=== PATIENT | female | born 1935 | race Caucasian/White ===

== ENCOUNTER 2016-08-30 12:54 | Inpatient (IN) ==
[2016-08-30] MEDS ORDERED: *HR* HYDROmorphone (PF) 1 MG/ML SYRINGE IVP ONE (12:58)
[2016-08-30] MEDS ORDERED: Ondansetron 4 MG/2 ML VIAL IVP ONE (12:58)
--- NOTE | 2016-08-30 13:07 | Emergency Department Note ---
Disposition Clinical Impression: Hypoxia Pneumonia Qualifiers: Pneumonia type: due to unspecified organism Laterality: bilateral Lung location : unspecified part of lung Qualified Code(s): J18.9 - Pneumonia, unspecified organism Nausea & vomiting Qualifiers: Vomiting type: unspecified Vomiting Intractability: unspecified Qualified Code( s): R11.2 - Nausea with vomiting, unspecified Disposition: Admitted As Inpatient Condition: Fair Referrals: Jo-Ann Mensah GENERAL ENGINEERING TEACHER [Primary Care Provider] - Forms: ED Satisfaction Letter Time of Disposition: 17:36 Nausea/Vomiting/Diarrhea HPI - General Chief complaint: ED Nausea/Vomiting/Diarrhea Stated complaint: increased pain/n/v Time Seen by Provider: 08/30/16 12:58 Source: patient, family Limitations: no limitations Nursing Notes Reviewed: Yes Vital Signs Reviewed: Yes - History of Present Illness HPI Narrative: 80-year-old with lung cancer who comes in with nausea vomiting not able to anything down and some shortness of breath. Patient currently is receiving radiation therapy and chemotherapy. Pt Subjective Complaint: nausea, vomiting Onset (ago): day(s) Description of emesis: food contents If pain, Location of pain: other (Back pain associated with her cancer.) Severity: moderate Quality: aching Consistency: constant Improves with: nothing Associated symptoms: Reports: cough - Related Data Home Medications Medication Instructions Recorded Confirmed Esomeprazole Magnesium [Nexium] 40 mg PO DAILY 07/16/16 08/07/16 Gabapentin [Neurontin] 600 mg PO Q6H 07/16/16 08/07/16 Ropinirole HCl 0.5 mg PO HS 07/16/16 08/07/16 Tramadol HCl 100 mg PO Q6H PRN 07/16/16 08/07/16 Albuterol Sulfate [Albuterol 2 puff IH Q4H PRN 07/17/16 08/07/16 Inhaler] Budesonide/Formoterol 160/4.5 2 puff IH BID PRN 07/17/16 08/07/16 [Symbicort 160/4.5] Lisinopril [Lisinopril] 40 mg PO DAILY 08/07/16 08/07/16 Previous Rx's Medication Instructions Recorded Magic Mouthwash [Magic Mouthwash 10 ml PO QID PRN #240 ml 08/19/16 BLM] Ondansetron HCl [Zofran] 4 mg PO TID PRN #90 tablet 08/19/16 Prochlorperazine Maleate 10 mg PO Q8HR PRN #90 tablet 08/19/16 [Compazine] Dexamethasone [Decadron] 4 mg PO BID #60 tab 08/25/16 HYDROcodone/Acet 5/325 mg [[place] 1 - 2 tab PO Q6H PRN #80 tab 08/25/16 5-325 mg] Allergies Allergy/AdvReac Type Severity Reaction Status Date / Time acetaminophen [From [place]] Allergy itching,hiv Verified 08/07/16 12:50 es codeine Allergy itching,hiv Verified 08/07/16 12:50 es fluticasone Allergy Difficulty Verified 08/07/16 12:50 [From Advair Diskus] Breathing hydrocodone [From [place]] Allergy itching,hiv Verified 08/07/16 12:50 es salmeterol Allergy Difficulty Verified 08/07/16 12:50 [From Advair Diskus] Breathing Constitutional: Denies: fever, chills, weakness, weight change Eyes: Denies: eye pain, eye discharge, vision change ENT ED: Denies: ear pain, throat pain, dental pain, hearing loss, epistaxis, congestion, dysphagia Cardiovascular: Denies: chest pain, palpitations, dyspnea on exertion, edema, syncope Respiratory: Denies: cough, dyspnea, wheezes, hemoptysis, stridor Gastrointestinal: Reports: nausea, vomiting, diarrhea. Denies: abdominal pain, constipation, hematemesis, melena, hematochezia Genitourinary: Denies: dysuria, frequency, hematuria, discharge Musculoskeletal: Denies: back pain, neck pain, arthralgia, myalgia Integumentary: Denies: rash, abrasion, lesions Neurological: Denies: headache, weakness, numbness, paresthesias, confusion, abnormal gait, vertigo Psychiatric: Denies: anxiety, depression, suicidal thoughts, homicidal thoughts , auditory hallucinations, visual hallucinations Endocrine: Denies: fatigue Hematological/Lymphatic: Denies: easy bleeding, easy bruising Allergic/Immunologic: Denies: facial swelling, urticaria Past Medical History - Past Medical History Medical history: Reports: cancer, hypertension, other Surgical history: Reports: non-contributory Psychiatric history: Reports: no psych history CARDIOPULMONARY PHYSICAL THERAPIST history: Reports: no CARDIOPULMONARY PHYSICAL THERAPIST history - Social History Smoking Status: Current every day smoker Smokeless Tobacco Status: No Alcohol use: Reports: none Drug use: Reports: none Physical Exam - General Limitations: no limitations General appearance: alert, in no apparent distress - Head Head exam: atraumatic, normocephalic, normal inspection - Eye Eye exam: Present: normal appearance, PERRL, EOMI - ENT ENT exam: normal exam, normal oropharynx, mucous membranes moist - Neck Neck exam: Present: normal inspection, full ROM, trachea midline - Chest Chest inspection: Present: normal inspection, symmetric chest wall rise - Respiratory Respiratory exam: Present: normal lung sounds bilaterally - Cardiovascular Cardiovascular exam: Present: regular rate, normal rhythm, normal heart sounds - Abdominal Exam Abdominal exam: Present: soft, Non-Tender. Absent: tenderness, distention, guarding, rebound, rigidity - Extremities Exam Extremities exam: Present: normal inspection, full ROM. Absent: tenderness, pedal edema - Expanded Lower Extremity Exam Neurovascular/Tendon exam: Absent: motor deficit, sensory deficit, tendon deficit - Back Exam Back exam: Present: normal inspection, full ROM. Absent: tenderness - Neurological Exam Neurological exam: Present: alert, oriented X3 - Psychiatric Psychiatric exam: Present: normal affect, normal mood - Skin Skin exam: Present: warm, dry, intact, normal color Course - Consultations Consultation #1: Discussed with Dr. Mancilla, it. Time: 17:40 Vital Signs Temperature 98.4 F 08/30/16 12:57 Pulse Rate 112 08/30/16 12:57 Respiratory Rate 14 08/30/16 12:57 Blood Pressure 168/93 08/30/16 12:57 O2 Sat by Pulse Oximetry 90 L 08/30/16 12:57 Temperature 98.4 F 08/30/16 12:57 Pulse Rate 115 08/30/16 14:58 Respiratory Rate 16 08/30/16 14:58 Blood Pressure 149/90 08/30/16 14:58 O2 Sat by Pulse Oximetry 92 L 08/30/16 14:58 Oxygen Delivery Oxygen Delivery Room Air Nausea/Vomiting/Diarrhea - Lab Data Lab results reviewed: Yes I reviewed the patient's lab results. Result diagrams: 08/30/16 13:42 08/30/16 14:38 Lab Results 08/30/16 08/30/16 08/30/16 Range/Units 13:42 13:42 14:15 WBC 7.6 (4.3-11.1) K/mcL RBC 3.94 (3.82-4.97) M/mcL Hgb 10.7 L (11.5-15.4) g/dL Hct 32.8 L (35.3-44.9) % MCV 83.2 (83.0-100.0) fL MCH 27.2 L (28.0-33.3) pg MCHC 32.6 (31.6-35.5) g/dL RDW 16.5 H (11.5-14.5) % Plt Count 240 (140-400) K/mcL MPV 9.6 (9.4-12.4) fL Immature Gran % Test Not Performed Seg Neutrophils % 42.0 % Band Neutrophils % 38.0 H (0-4) % Lymphocytes % 10.0 % Monocytes % 10.0 % Eosinophils % Test Not Performed Basophils % Test Not Performed Neutrophils # 6.1 (1.6-8.9) K/mcL Lymphocytes # 0.8 (0.6-4.6) K/mcL Monocytes # 0.8 (0.0-1.3) K/mcL Eosinophils # Test Not Performed Basophils # Test Not Performed Platelet Estimate Normal (Normal) Sodium (136-145) mEq/L Potassium (3.5-4.5) mEq/L Chloride (98-109) mEq/L Carbon Dioxide (19-29) mEq/L BUN (7-20) mg/dL Creatinine (0.57-1.11) mg/dL Est GFR ( Amer) (> 60) Est GFR (Non-Af Amer) (> 60) BUN/Creatinine Ratio (6-26) Glucose (70-99) mg/dL Calculated Osmolality (280-300) Calcium (8.6-10.8) mg/dL Urine Color Yellow (Yellow) Urine Clarity Clear (Clear) Urine pH 6.0 (5.0-8.0) pH Units Ur Specific [place] 1.016 (1.010-1.025) Urine Protein 30 H (Neg-Trace) mg/dL Urine Glucose (UA) Normal (Normal) mg/dL Urine Ketones Negative (Negative) mg/dL Urine Blood Negative (Negative) Urine Nitrite Negative (Negative) Urine Bilirubin Negative (Negative) Urine Urobilinogen Normal (Normal) mg/dL Ur Leukocyte Esterase Negative (Negative) Urine Microscopic RBC 5-15 H (0-3) per hpf Urine Microscopic WBC 0-3 (0-3) per hpf Ur Squamous Epith Cells Many H (None-Few) per lpf Ur Renal Epithelial Cell Few (None-Few) per hpf Urine Bacteria None Seen (None-Few) per hpf Hyaline Casts None Seen (None-Few) per lpf Ur Culture Indicated? NO (NO) Specimen Rejected Hemolyzed 08/30/16 Range/Units 14:38 WBC (4.3-11.1) K/mcL RBC (3.82-4.97) M/mcL Hgb (11.5-15.4) g/dL Hct (35.3-44.9) % MCV (83.0-100.0) fL MCH (28.0-33.3) pg MCHC (31.6-35.5) g/dL RDW (11.5-14.5) % Plt Count (140-400) K/mcL MPV (9.4-12.4) fL Immature Gran % Seg Neutrophils % % Band Neutrophils % (0-4) % Lymphocytes % % Monocytes % % Eosinophils % Basophils % Neutrophils # (1.6-8.9) K/mcL Lymphocytes # (0.6-4.6) K/mcL Monocytes # (0.0-1.3) K/mcL Eosinophils # Basophils # Platelet Estimate (Normal) Sodium 129 L (136-145) mEq/L Potassium 3.9 (3.5-4.5) mEq/L Chloride 93 L (98-109) mEq/L Carbon Dioxide 26 (19-29) mEq/L BUN 12 (7-20) mg/dL Creatinine 0.56 L (0.57-1.11) mg/dL Est GFR ( Amer) > 60 (> 60) Est GFR (Non-Af Amer) > 60 (> 60) BUN/Creatinine Ratio 21 (6-26) Glucose 146 H (70-99) mg/dL Calculated Osmolality 270 L (280-300) Calcium 9.4 (8.6-10.8) mg/dL Urine Color (Yellow) Urine Clarity (Clear) Urine pH (5.0-8.0) pH Units Ur Specific [place] (1.010-1.025) Urine Protein (Neg-Trace) mg/dL Urine Glucose (UA) (Normal) mg/dL Urine Ketones (Negative) mg/dL Urine Blood (Negative) Urine Nitrite (Negative) Urine Bilirubin (Negative) Urine Urobilinogen (Normal) mg/dL Ur Leukocyte Esterase (Negative) Urine Microscopic RBC (0-3) per hpf Urine Microscopic WBC (0-3) per hpf Ur Squamous Epith Cells (None-Few) per lpf Ur Renal Epithelial Cell (None-Few) per hpf Urine Bacteria (None-Few) per hpf Hyaline Casts (None-Few) per lpf Ur Culture Indicated? (NO) Specimen Rejected - Radiology Data Radiology results reviewed: Yes I reviewed the patient's radiology results. Abdomen/Pelvis CT 08/30/16 13:02 IMPRESSION: Bibasilar airspace disease compatible with pneumonia, new from prior CT. Mild prominence of the biliary and pancreatic ductal system, similar to the CT from several months earlier, without obstructing pancreatic or duodenal mass seen. Degenerative changes, lumbar spine and right hip. Renal cysts. D/ / 08/30/2016 17:23:18 Pak[facility] Leyva MD / [facility] Interpreting Provider: Pako Leyva MD Chest CT 08/30/16 13:02 IMPRESSION: No substantial change in spiculated right upper lobe mass. Slight decrease in pretracheal lymph node. Progression of tree-in-bud nodules in the lower lungs as well as new partial consolidation in the lower lobes concerning for pneumonia although progression of disease also a consideration. Postsurgical changes from kyphoplasty as above. New scleroses and heterogeneous appearance of T8 with loss of approximately 20% vertebral body height. No discrete lesion visualized however if there is concern for pathologic fracture MRI would be more sensitive. Compression deformity of T6 with loss of about 50% vertebral body height, new. D/ / Karen Johnson MD / Karen Johnson MD Interpreting Provider: Karen Johnson MD
[2016-08-30 14:04] LABS: Hematocrit 32.8 % (35.3-44.9); Hemoglobin 10.7 g/dL (11.5-15.4); Mean Corpuscular HGB Conc 32.6 g/dL (31.6-35.5); Mean Corpuscular Hemoglobin 27.2 pg (28.0-33.3); Mean Corpuscular Volume 83.2 fL (83.0-100.0); Mean Platelet Volume 9.6 fL (9.4-12.4); Platelet Count 240 K/mcL (140-400); Red Blood Count 3.94 M/mcL (3.82-4.97); Red Cell Distribution Width 16.5 % (11.5-14.5)
[2016-08-30 14:22] LABS: Lymphocytes # 0.8 K/mcL (0.6-4.6); Monocytes # 0.8 K/mcL (0.0-1.3); Neutrophils # 6.1 K/mcL (1.6-8.9); Platelet Estimate Normal (Normal)
[2016-08-30 14:23] LABS: Bilirubin,Urine Negative (Negative); Blood,Urine Negative (Negative); Clarity,Urine Clear (Clear); Color,Urine Yellow (Yellow); Glucose,Urine (UA) Normal (Normal); Ketones,Urine Negative (Negative); Leukocyte Esterase,Urine Negative (Negative); Nitrite,Urine Negative (Negative); Protein,Urine 30 mg/dL (Neg-Trace); Specific Gravity,Urine 1.016 (1.010-1.025); Urobilinogen,Urine Normal (Normal)
[2016-08-30 14:26] LABS: Bacteria,Urine None Seen per hpf (None-Few); Hyaline Casts,Urine None Seen per lpf (None-Few); Squamous Epithelial Cell,Urine Many per lpf (None-Few); WBC,Urine 0-3 per hpf (0-3)
[2016-08-30 14:39] LABS: Renal Epithelial Cells,Urine Few per hpf (None-Few)
[2016-08-30 15:41] LABS: BUN/Creatinine Ratio 21 (6-26); Blood Urea Nitrogen 12 mg/dL (7-20); Calcium 9.4 mg/dL (8.6-10.8); Carbon Dioxide 26 mEq/L (19-29); Chloride 93 mEq/L (98-109); Glucose 146 mg/dL (70-99); Osmolality,Calculated 270 (280-300); Potassium 3.9 mEq/L (3.5-4.5); Sodium 129 mEq/L (136-145); eGFR For African Americans > 60 (> 60); eGFR For Non-African Americans > 60 (> 60)
[2016-08-30] MEDS ORDERED: Piperacillin/Tazobactam 3.375 GM in D5% in Water (Mini-Bag+) 100 ML IVPB ONE (17:35)
[2016-08-30] MEDS ORDERED: Vancomycin 1,000 MG in D5% in Water 250 ML IVPB ONE (17:40)
[2016-08-30] MEDS ORDERED: Naloxone 0.4 MG/ML INJ IVP PRN (19:04)
[2016-08-30] MEDS ORDERED: Ondansetron 4 MG/2 ML VIAL IVP PRN (19:04)
[2016-08-30] MEDS ORDERED: 0.9 % Sodium Chloride 1,000 ML IVC SCH (19:15)
[2016-08-30] MEDS ORDERED: Magic Mouthwash 10 ML UD Cup PO PRN (19:50)
[2016-08-30] MEDS ORDERED: Budesonide/Formoterol 160/4.5 MDI IH PRN (19:50)
[2016-08-30] MEDS ORDERED: traMADol 50 MG TABLET PO PRN (19:50)
--- NOTE | 2016-08-30 20:03 | Internal Med History&Physical ---
Date of Encounter: 08/30/16 Time of Encounter: 19:30 Assessment and Plan (1) HCAP (healthcare-associated pneumonia) Current visit: Yes Status: Acute CT chest findings consistent with bilateral lower lobe pneumonia She received first dose of vancomycin and Zosyn in the ER, will continue Follow-up blood cultures Follow-up Vanco trough, pharmacy to dose vancomycin (2) Anemia Current visit: Yes Status: Acute H&H low but acceptable No active bleeding noted at this time Will obtain iron studies to obtain etiology for anemia Continue to monitor H&H closely, transfuse as needed Qualifiers: Anemia type: unspecified type Qualified Code(s): D64.9 - Anemia, unspecified (3) Nausea & vomiting Current visit: Yes Status: Resolved Resolved at this time Likely secondary to the recent chemotherapy and radiation therapy will continue Zofran as needed will add promethazine if nausea refractory to Zofran Continue IV fluids until able to fully tolerate by mouth intake Qualifiers: Vomiting type: unspecified Vomiting Intractability: unspecified Qualified Code(s): R11.2 - Nausea with vomiting, unspecified (4) COPD (chronic obstructive pulmonary disease) Current visit: No Status: Chronic Not an acute exacerbation Continue bronchodilators as needed Monitor O2 saturation O2 supplementation as needed Qualifiers: COPD type: chronic bronchitis Chronic bronchitis type: simple Qualified Code(s): J41.0 - Simple chronic bronchitis (5) HTN (hypertension) Current visit: No Status: Chronic BP within acceptable range Continue home medications Qualifiers: Hypertension type: essential hypertension Qualified Code(s): I10 - Essential (primary) hypertension (6) GERD (gastroesophageal reflux disease) Current visit: No Status: Chronic Continue home medications Qualifiers: Esophagitis presence: without esophagitis Qualified Code(s): K21.9 - Gastro -esophageal reflux disease without esophagitis (7) Lung cancer Current visit: No Status: Chronic Continue chemotherapy and radiation as outpatient Continue home regimen of pain management Added Dilaudid for severe pain refractory to home medication Qualifiers: Laterality: right Lung location: upper lobe of lung Qualified Code(s): C34.11 - Malignant neoplasm of upper lobe, right bronchus or lung (8) Hyperglycemia Current visit: Yes Status: Acute Patient noted to be on Decadron at home Hyperglycemia likely secondary to steroid therapy, however noted to have history of A1c of 6.2 in February 2016 will repeat A1c in a.m. Continue to monitor blood glucose (9) DVT prophylaxis Current visit: Yes Status: Acute Lovenox subcutaneous Internal Medicine - H&P: HPI Chief complaint: nausea, vomiting Admitted From: Home Plans for Post Hospital Care: Transfer Detention Facility History of present illness: Ms. 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 Patient reports of receiving chemotherapy and radiation last week and since then her pain and nausea/vomiting have worsened. She states that she does not have adequate pain control nor it was her nausea relieved with by mouth medications to which she came to the ER. Patient received IV medications which relieved her restenting symptoms, however she was noted to have bilateral lower lobe pneumonia which prompted her admission to the hospital. At this time she is resting in bed reports of chronic pain in her back and left shoulder, and states it was better controlled with the pain medication she received in the ER than the medication she takes at home. She denies any headache, chest pain, shortness of breath, abdominal pain, nausea, vomiting, diarrhea, fever, or chills at this time. Social hx: former smoker (quit 1.5 months ago-history of 1ppd x 40+years) Past Med Surg Social Fam HX - Past Medical History Medical history: cancer (lung cancer), hypertension, malignancy, other Psychiatric history: no psych history - Past Surgical History Surgical History: non-contributory - Social History Smoking Status: Current every day smoker Smokeless Tobacco Status: No Alcohol use: none Drug use: none Internal Medicine - H&P: Meds Esomeprazole Magnesium [Nexium] 40 mg PO DAILY 07/16/16 [History] Gabapentin [Neurontin] 600 mg PO Q6H 07/16/16 [History] Ropinirole HCl 0.5 mg PO HS 07/16/16 [History] Tramadol HCl 100 mg PO Q6H PRN 07/16/16 [History] Albuterol Sulfate [Albuterol Inhaler] 2 puff IH Q4H PRN 07/17/16 [History] Budesonide/Formoterol 160/4.5 [Symbicort 160/4.5] 2 puff IH BID PRN 07/17/16 [ History] Lisinopril [Lisinopril] 40 mg PO DAILY 08/07/16 [History] Magic Mouthwash [Magic Mouthwash BLM] 10 ml PO QID PRN #240 ml 08/19/16 [Rx] Ondansetron HCl [Zofran] 4 mg PO TID PRN #90 tablet 08/19/16 [Rx] Prochlorperazine Maleate [Compazine] 10 mg PO Q8HR PRN #90 tablet 08/19/16 [Rx] Dexamethasone [Decadron] 4 mg PO BID #60 tab 08/25/16 [Rx] HYDROcodone/Acet 5/325 mg [[place] 5-325 mg] 1 - 2 tab PO Q6H PRN #80 tab [Rx] Allergies acetaminophen [From [place]] Allergy (Verified 08/07/16 12:50) itching,hives codeine Allergy (Verified 08/07/16 12:50) itching,hives fluticasone [From Advair Diskus] Allergy (Verified 08/07/16 12:50) Difficulty Breathing hydrocodone [From [place]] Allergy (Verified 08/07/16 12:50) itching,hives salmeterol [From Advair Diskus] Allergy (Verified 08/07/16 12:50) Difficulty Breathing All Systems PM: A 10-system review of systems was performed and is negative for pertinent findings except as documented above in the HPI. - Constitutional Constitutional: as per HPI - Constitutional Vitals: Temp Pulse Resp BP Pulse Ox 99.2 F 116 18 147/79 94 L 08/30/16 19:20 08/30/16 19:20 08/30/16 19:20 08/30/16 19:20 08/30/16 19:20 General appearance: Present: A&O X 3 (frail apperaing elderly female), no acute distress, underweight, answers questions appropriately - Head Head exam: Present: atraumatic, normocephalic - Respiratory Respiratory exam: Absent: respiratory distress, wheezes (coarse breath sounds bilaterally) - Cardiovascular Cardiovascular exam: Present: RRR, +S1, +S2. Absent: diastolic murmur, gallop, rubs, systolic murmur - GI/Abdominal GI/Abdominal exam: Present: normal bowel sounds, soft, no peritoneal signs. Absent: distended, tenderness - Extremities Exam Extremities exam: Present: warm, radial pulses palpable and symetrical. Absent : calf tenderness, cyanotic, pedal edema - Neurological Exam Neurological exam: Present: alert, oriented X3 - Psychiatric Psychiatric exam: Present: normal affect, normal mood Internal Med - H&P Results - Labs CBC & Chem 7: 08/30/16 13:42 08/30/16 14:38
[2016-08-30] MEDS: rOPINIRole 0.25 MG TABLET PO SCH (21:54)
[2016-08-30] MEDS: Gabapentin 300 MG CAPSULE PO SCH (21:54)
[2016-08-31] MEDS: Gabapentin 300 MG CAPSULE PO SCH ×4 (02:33→21:18)
[2016-08-31] MEDS: *HR* HYDROmorphone (PF) 1 MG/ML SYRINGE IVP PRN ×2 (02:33→13:02)
[2016-08-31 04:02] LABS: Hematocrit 30.7 % (35.3-44.9); Hemoglobin 10.1 g/dL (11.5-15.4); Mean Corpuscular HGB Conc 32.9 g/dL (31.6-35.5); Mean Corpuscular Hemoglobin 27.4 pg (28.0-33.3); Mean Corpuscular Volume 83.4 fL (83.0-100.0); Mean Platelet Volume 9.6 fL (9.4-12.4); Platelet Count 216 K/mcL (140-400); Red Blood Count 3.68 M/mcL (3.82-4.97); Red Cell Distribution Width 16.3 % (11.5-14.5)
[2016-08-31] MEDS: Piperacillin/Tazobactam 3.375 GM in D5% in Water (Mini-Bag+) 100 ML IVPB SCH ×3 (04:10→18:12)
[2016-08-31 04:11] LABS: Hemoglobin A1C 6.3 %
[2016-08-31 04:18] LABS: % Iron Saturation 5 % (15-50); Iron 12 mcg/dL (50-170); Transferrin 169 mg/dL (180-382)
[2016-08-31 04:21] LABS: BUN/Creatinine Ratio 22 (6-26); Blood Urea Nitrogen 12 mg/dL (7-20); Calcium 9.1 mg/dL (8.6-10.8); Carbon Dioxide 27 mEq/L (19-29); Chloride 93 mEq/L (98-109); Glucose 151 mg/dL (70-99); Magnesium 1.9 mg/dL (1.6-2.6); Osmolality,Calculated 267 (280-300); Phosphorous 2.7 mg/dL (2.3-4.7); Potassium 3.9 mEq/L (3.5-4.5); Sodium 127 mEq/L (136-145); eGFR For African Americans > 60 (> 60); eGFR For Non-African Americans > 60 (> 60)
[2016-08-31 04:23] LABS: Lymphocytes # 0.1 K/mcL (0.6-4.6); Monocytes # 0.1 K/mcL (0.0-1.3); Neutrophils # 6.8 K/mcL (1.6-8.9)
[2016-08-31 04:31] LABS: Large Platelets Present (Not Present); Platelet Estimate Normal (Normal); Polychromasia 1+ (Not Present)
[2016-08-31 04:39] LABS: Ferritin 308 ng/ml (5-204)
[2016-08-31 04:51] LABS: Folate 11.5 ng/mL (7.0-31.4)
[2016-08-31] MEDS: *HR* Enoxaparin 40 MG/0.4 ML SYRINGE SQ SCH (06:39)
[2016-08-31] MEDS: Lisinopril 20 MG TABLET PO SCH (09:37)
--- NOTE | 2016-08-31 10:46 | Internal Med Progress Note ---
Date of Encounter: 08/31/16 Time of Encounter: 10:44 - Assessment and plan (1) HCAP (healthcare-associated pneumonia) Current Visit: Yes Status: Acute Assessment and plan: improving slightly; continues to have productive cough; IV hydration; continue broad spectrum IV antibiotics, f/up blood cultures; send sputum for gram stain and culture; PRN antitussives and Mucomyst; supplemental O2 PRN; high risk due to immunosuppressed condition; (2) Nausea & vomiting Current Visit: Yes Status: Resolved Assessment and plan: likley related to recent chemotherapy or viral gastritis; improved now; Qualifiers: Vomiting type: unspecified Vomiting Intractability: unspecified Qualified Code(s): R11.2 - Nausea with vomiting, unspecified (3) COPD (chronic obstructive pulmonary disease) Current Visit: Yes Status: Chronic Qualifiers: COPD type: chronic bronchitis Chronic bronchitis type: simple Qualified Code(s): J41.0 - Simple chronic bronchitis (4) DJD (degenerative joint disease) Current Visit: Yes Status: Chronic Qualifiers: Osteoarthritis location: spine Spinal region: lumbar Spinal osteoarthritis complication: with radiculopathy Qualified Code(s): 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, lumbar region (5) GERD (gastroesophageal reflux disease) Current Visit: Yes Status: Chronic Qualifiers: Esophagitis presence: without esophagitis Qualified Code(s): K21.9 - Gastro -esophageal reflux disease without esophagitis (6) HTN (hypertension) Current Visit: Yes Status: Chronic Qualifiers: Hypertension type: essential hypertension Qualified Code(s): I10 - Essential (primary) hypertension (7) Lung cancer Current Visit: Yes Status: Chronic Assessment and plan: RUL squamous cell carcinoma- on chemotherapy and radiotherapy as outpatient; continue analgesics for chronic chest pain; 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; continue Accucheck blood glucose monitoring; HbA1C noted to be 6.3% Qualifiers: Laterality: right Lung location: upper lobe of lung Qualified Code(s): C34.11 - Malignant neoplasm of upper lobe, right bronchus or lung - Subjective Interval history: Reports feeling slightly better; continues to have hacking cough with minimal yellowish sputum production, chest congestion; improved nausea, vomiting; left- sided chest pain improving; no abdominal pain, diarrhea; - Constitutional Vitals: Temp Pulse Resp BP Pulse Ox 98.5 F 85 18 95/58 93 L 08/31/16 07:35 08/31/16 07:35 08/31/16 07:35 08/31/16 07:35 08/31/16 07:35 General appearance: Present: cachectic, A&O X 3 (frail apperaing elderly female) , answers questions appropriately - Head Head exam: Present: atraumatic, normocephalic - Neck Neck exam general surgery: Present: supple, trachea midline. Absent: lymphadenopathy - Respiratory Respiratory exam: Present: CTAB, rales (bibasal crackles+). Absent: accessory muscle use, rhonchi, wheezes Additional comments: severe kyphosis - Cardiovascular Cardiovascular exam: Present: RRR, +S1, +S2. Absent: diastolic murmur, gallop, rubs, systolic murmur - GI/Abdominal GI/Abdominal exam: Present: normal bowel sounds, soft, no peritoneal signs. Absent: distended, tenderness - Extremities Exam Extremities exam: Present: full ROM, warm, radial pulses palpable and symetrical. Absent: calf tenderness, cyanotic, pedal edema - Neurological Exam Neurological exam: Present: CN II-XII intact, oriented X3, no focal deficits. Absent: pronater drift, facial droop, speech deficit - Skin Skin exam: Present: dry, intact Internal Medicine: Result - Labs CBC & Chem 7: 08/31/16 03:45 08/31/16 03:45 Labs: Short CBC 08/31/16 Range/Units 03:45 WBC 7.1 (4.3-11.1) K/mcL Hgb 10.1 L (11.5-15.4) g/dL Hct 30.7 L (35.3-44.9) % Plt Count 216 (140-400) K/mcL Neutrophils # 6.8 (1.6-8.9) K/mcL BMP 08/31/16 03:45 Sodium 127 L Potassium 3.9 Chloride 93 L Carbon Dioxide 27 BUN 12 Creatinine 0.54 L Glucose 151 H Calcium 9.1 Consult Discharge Plan - Plan Referrals: Jo-Ann Mensah, THERAPEUTIC RECREATION DIRECTOR [Primary Care Provider] - 09/08/16 1:00 pm (Please follow up as schedule..)
[2016-08-31] MEDS: Acetylcysteine 10% 2 ML INHSOL IH SCH ×3 (11:41→19:44)
[2016-08-31] MEDS ORDERED: Vancomycin 1,000 MG in D5% in Water 250 ML IVPB SCH (18:00)
[2016-08-31] MEDS: rOPINIRole 0.25 MG TABLET PO SCH (21:18)
[2016-09-01] MEDS: Gabapentin 300 MG CAPSULE PO SCH ×4 (02:17→21:02)
[2016-09-01] MEDS: Piperacillin/Tazobactam 3.375 GM in D5% in Water (Mini-Bag+) 100 ML IVPB SCH ×3 (02:21→16:45)
[2016-09-01] MEDS: Ipratropium/Albuterol Neb 3 ML IH SCH ×4 (04:02→23:15)
[2016-09-01] MEDS: Acetylcysteine 10% 2 ML INHSOL IH SCH ×3 (04:03→23:15)
[2016-09-01] MEDS: Acetylcysteine 10% 4 ML INHSOL IH SCH ×3 (04:26→15:20)
[2016-09-01] MEDS: *HR* Enoxaparin 40 MG/0.4 ML SYRINGE SQ SCH (06:44)
[2016-09-01 07:04] LABS: BUN/Creatinine Ratio 31 (6-26); Blood Urea Nitrogen 18 mg/dL (7-20); Calcium 9.5 mg/dL (8.6-10.8); Carbon Dioxide 27 mEq/L (19-29); Chloride 95 mEq/L (98-109); Glucose 165 mg/dL (70-99); Osmolality,Calculated 278 (280-300); Potassium 3.9 mEq/L (3.5-4.5); Sodium 131 mEq/L (136-145); eGFR For African Americans > 60 (> 60); eGFR For Non-African Americans > 60 (> 60)
[2016-09-01] MEDS: Lisinopril 20 MG TABLET PO SCH (09:31)
--- NOTE | 2016-09-01 09:35 | Internal Med Progress Note ---
<Sandra Levy - Last Filed: 09/01/16 14:25> Date of Encounter: 09/01/16 Time of Encounter: 08:45 - Assessment and plan (1) HCAP (healthcare-associated pneumonia) Current Visit: Yes Status: Acute Assessment and plan: Undergoing chemo, evidenced by new tree-in-bud opacities, productive sputum. Cont Vanc/Zosyn, await culture return for deescalation. Due to adverse effect on 1st chemo round, per attending, would request oncology eval to delineate remaining chemo regimen. (2) Hypoxia Current Visit: No Status: Acute Assessment and plan: Cont supp oxygen support. Likely multifactorial, 2* multifocal pna in setting of known lung cancer. 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 Affirms PMH and general events prompting hospitalization. 80 yoF RUL NSCLC R. hilar adenopathy, chemo/radn followed by Dr. Stratton, Reed, GERD, HTN , receiving chemo. Admitted 08/30/16 for NV, CTAP bibasilar airspace ds c/w pna, Chest CT RUL spiculated mass, progression tree-in-bud nodules lower lungs. Empiric vanc/zosyn, bc x 2 neg, sputum many GPC PMH 60py smoker, MRI T7/T10 compression fracture, s/p kyphoplasty. She reports no home use of oxygen. She has had radiation therapy x 3 per her recollection, on cycle 1 chemo. Affirms left-sided pleurisy, productive cough, dyspnea. - Constitutional Vitals: Temp Pulse Resp BP Pulse Ox 98.6 F 91 16 117/69 98 09/01/16 06:59 09/01/16 06:59 09/01/16 06:59 09/01/16 06:59 09/01/16 06:59 General appearance: Present: cachectic, cooperative, A&O X 3 (frail apperaing elderly female), answers questions appropriately - Head Head exam: Present: atraumatic, normocephalic - Eye Eye exam: Present: EOMI, sclera anicteric - ENT ENT exam: Present: mucous membranes moist - Neck Neck exam general surgery: Present: supple, trachea midline - Respiratory Respiratory exam: Present: accessory muscle use, prolonged expiratory phase, rales, rhonchi (all cisse, pronounced right side. ) - Cardiovascular Cardiovascular exam: Present: +S1, +S2. Absent: JVD - GI/Abdominal GI/Abdominal exam: Present: soft, no peritoneal signs. Absent: tenderness - Extremities Exam Extremities exam: Present: warm, radial pulses palpable and symetrical. Absent : pedal edema Internal Medicine: Result - Labs CBC & Chem 7: 08/31/16 03:45 09/01/16 06:23 Labs: BMP 09/01/16 06:23 Sodium 131 L Potassium 3.9 Chloride 95 L Carbon Dioxide 27 BUN 18 Creatinine 0.58 Glucose 165 H Calcium 9.5 Consult Discharge Plan - Plan Referrals: Jo-Ann Mensah, BILLING SERVICES MANAGER [Primary Care Provider] - 09/08/16 1:00 pm (Please follow up as schedule..) <Caden Espinoza - Last Filed: 09/01/16 19:18> Date of Encounter: 09/01/16 - Assessment and plan (1) HCAP (healthcare-associated pneumonia) Current Visit: Yes Status: Acute - Time Spent With Patient I examined this patient and my medical decision-making was reviewed with the Resident Physician, Dr. Levy. I agree with the documented findings, disposition and treatment plan as described except to the extent set forth below. We will continue treatment with antibiotics, steroids, oxygen by nasal cannula and bronchodilators. I am concerned of aspiration secondary to intractable vomiting caused by chemotherapy. We will follow up blood cultures and sensitivities and adjust therapy accordingly. - Constitutional Vitals: Temp Pulse Resp BP Pulse Ox 98.6 F 114 16 107/69 94 L 09/01/16 15:43 09/01/16 15:43 09/01/16 15:43 09/01/16 15:43 09/01/16 15:43 Internal Medicine: Result - Labs CBC & Chem 7: 08/31/16 03:45 09/01/16 06:23 Labs: [facility] 09/01/16 06:23 Sodium 131 L Potassium 3.9 Chloride 95 L Carbon Dioxide 27 BUN 18 Creatinine 0.58 Glucose 165 H Calcium 9.5
[2016-09-01] MEDS: *HR* HYDROmorphone (PF) 1 MG/ML SYRINGE IVP PRN (14:09)
[2016-09-01] MEDS: *HR* HYDROcodone/Acet 5/325 mg TABLET PO PRN (16:44)
--- NOTE | 2016-09-01 16:46 | Oncology Inp Consult Note ---
<Yesenia Bernal E - Last Filed: 09/01/16 17:44> Date of Encounter: 09/01/16 Time of Encounter: 15:40 Assessment and Plan (1) HCAP (healthcare-associated pneumonia) Status: Acute Assessment and plan: CUrrenlty on vancomycin and Zosyn. (2) Lung cancer Status: Chronic Assessment and plan: Currently receiving concurrent chemotherapy and radiation. With chemotherapy including carboplatin and Taxol weekly. Initial dose was given on July the last dose on 08/25/2016. Qualifiers: Laterality: right Lung location: upper lobe of lung Qualified Code(s): C34.11 - Malignant neoplasm of upper lobe, right bronchus or lung - Data of Consult Patient: known to practice within the last 3 years Consult date: 09/01/16 Requesting Physician: Caden Espinoza MD Primary Care Provider: Jo-Ann Mensah CNP - Consult Narrative Reason for consult: Lung cancer History of present illness: Ms. Guzman is a 80 year old female who is well-known to our clinic. 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 She is currently receiving definitive treatment with concurrent chemotherapy and radiation. Chemotherapy includes carboplatin and Taxol which is given weekly with concurrent radiation. The initial dose was on August 18, the second weekly dose was given on August 25. She was recently admitted to [facility] with nausea and vomiting, health care associated pneumonia. Oncology history is as follows. She has history of chronic back pain with worsening symptoms in February 2016. At that time she had plain x-rays that showed a compression fracture in the thoracic vertebrae. She was taking NSAIDs and underwent further CT imaging of the back due to ongoing pain issues followed by an MRI of thoracic and lumbar spine. Imaging showed acute compression fractures at T7 and T10, chronic compression fractures at T5 inferior aspect and a T9, thoracic imaging also showed a right lung mass. This was further investigated by CT scan of the chest which was completed in May 2016 which showed a right upper lobe lung mass measuring 6 x 5.4 x 5.8 cm with borderline right hilar adenopathy. She had a CT-guided biopsy of the right lung mass that indicated moderately differentiated squamous cell carcinoma, p63 and CK 5 and 6 positive. She was hospitalized in June 2016 with shortness of breath. A CT angiogram ruled out pulmonary embolism she was treated for bronchitis, COPD exacerbation. In May 2016 an MRI of the brain showed no metastatic lesions however there was a pontine lesion. She also reported having a 15 pound weight loss in the previous 6 months. She did start chemotherapy and radiation on August 18 with carboplatin and Taxol being given weekly with her last weekly dose being given on August 25. On 08/30/2016, she presented to the emergency room with nausea and vomiting and increasing shortness of breath. She was admitted to [facility] with nausea vomiting, health care associated pneumonia. She is currently on broad-spectrum antibiotics. CAT scan on 08/30/2016 indicated no substantial change in the spiculated right upper lobe mass, slight decrease in the paratracheal lymph node. There was progression of treatment but nodules in the lower lungs as well as new partial consolidation in the lower lobes concerning for pneumonia although progressive disease could also be considered. There was also evidence of postsurgical changes from kyphoplasty. New sclerosis and heterogeneous appearance of T8 with loss of approximately 20% of vertebral body height, no discrete lesion visualized. There was also compression deformity of T5 with loss of about 50% of vertebral body height which is new. Past Med Surg Social Fam HX - Past Medical History Medical history: cancer, hypertension, malignancy, other (Osteoarthritis, osteoporosis, hypercholesterolemia, restless leg syndrome, hypertension, GERD, peptic ulcer disease, chronic bronchitis, hayfever, degenerative disc disease, hqz-[id number]-[id number] diabetes mellitus, near syncopal episodes, carpal tunnel, cervical jugular be, hayfever.) Psychiatric history: no psych history - Past Surgical History Surgical History: non-contributory - Social History Smoking Status: Former smoker Smokeless Tobacco Status: No Alcohol use: none Drug use: none Current living situation: With Family (Visit home with her daughter and grandkids) Recent Out of Country Travel Within the Last 8 Weeks: No Exposure or Possible Exposure to Illness During Travel: No - Additional Family History Additional family history: Diabetes. Medications and Allergies Gabapentin [Neurontin] 600 mg PO Q6H 07/16/16 [History] Ropinirole HCl 0.5 mg PO HS 07/16/16 [History] Tramadol HCl 100 mg PO Q6H PRN 07/16/16 [History] Albuterol Sulfate [Albuterol Inhaler] 2 puff IH Q4H PRN 07/17/16 [History] Budesonide/Formoterol 160/4.5 [Symbicort 160/4.5] 2 puff IH BID PRN 07/17/16 [ History] Lisinopril [Lisinopril] 40 mg PO DAILY 08/07/16 [History] Ondansetron HCl [Zofran] 4 mg PO TID PRN #90 tablet 08/19/16 [Rx] Prochlorperazine Maleate [Compazine] 10 mg PO Q8HR PRN #90 tablet 08/19/16 [Rx] Amlodipine [Norvasc] 5 mg PO DAILY 08/31/16 [History] Dexamethasone [Dexamethasone] 4 mg PO BID 08/31/16 [History] Hydrocodone/Acetaminophen [[place] 5-325 Tablet] 1 each PO Q6H PRN 08/31/16 [ History] Oxycodone HCl 5 mg PO Q6H PRN 08/31/16 [History] Sennosides/Docusate Sodium [Senna-S Tablet] 1 each PO HS PRN 08/31/16 [History] Allergies acetaminophen [From [place]] Allergy (Verified 08/31/16 12:00) itching,hives codeine Allergy (Verified 08/31/16 12:00) itching,hives fluticasone [From Advair Diskus] Allergy (Verified 08/31/16 12:00) Difficulty Breathing hydrocodone [From [place]] Allergy (Verified 08/31/16 12:00) itching,hives salmeterol [From Advair Diskus] Allergy (Verified 08/31/16 12:00) Difficulty Breathing All systems: reviewed and no additional remarkable complaints except as stated Constitutional: Present: fatigue, weakness Respiratory: Present: cough (Dry, nonproductive intermittent), dyspnea on exertion, chest congestion Gastrointestinal: Present: early satiety (She denies nausea and vomiting. She states she vomited once since she was admitted.) Musculoskeletal: Present: back pain (In the left shoulder area) Oncology - Exam - Constitutional Vitals: Temp Pulse Resp BP Pulse Ox 98.6 F 114 16 107/69 94 L 09/01/16 15:43 09/01/16 15:43 09/01/16 15:43 09/01/16 15:43 09/01/16 15:43 General appearance: mild distress, thin - Head Head exam: Present: normal inspection - ENT ENT exam: Present: mucous membranes moist - Neck Neck exam: Present: normal inspection - Respiratory Respiratory exam: Present: rhonchi (In all lung cisse) - Cardiovascular Cardiovascular exam: Present: RRR - GI/Abdominal GI/Abdominal exam: Present: soft (Nontender) - Extremities Exam Extremities exam: Present: normal inspection (No edema present) Oncology - Results - Labs Labs: [facility] 09/01/16 06:23 Sodium 131 L Potassium 3.9 Chloride 95 L Carbon Dioxide 27 BUN 18 Creatinine 0.58 Glucose 165 H Calcium 9.5 Consult Discharge Plan - Plan Referrals: Jo-Ann Mensah CNP [Primary Care Provider] - 09/08/16 1:00 pm (Please follow up as schedule..) Attestation: My signature below is to certify that this patient is under my care and that I, or nurse practitioner, or a physician's general assistant working with me, has a face-to -face encounter with this patient. <Joaquim Cerda. - Last Filed: 09/02/16 14:53> Date of Encounter: 09/01/16 - Data of Consult Requesting Physician: Caden Espinoza MD Primary Care Provider: Jo-Ann Mensah CNP - Consult Narrative History of present illness: I saw and personally examined Ms. Guzman at her bedside today and reviewed the chart for details of ongoing care by hospital team. I verified/agree with the history and physical exam findings documented by Melisa Bernal CNP above. Patient is known to oncology and is currently undergoing definitive concurrent chemoradiation for local regionally advanced lung cancer. Chemotherapy per Dr. Neil. Radiation therapy per Dr. Mcbride. Treatment was started 08/18/16. Last dose chemotherapy 08/25/16. Currently hospitalized for health care associated pneumonia after presenting with progressive shortness of breath. Lung imaging is positive for bilateral infiltrates consistent with pneumonia and she is an appropriate antibiotic coverage. She is feeling considerably better this morning with significant improvement in her respiratory symptoms. Vital signs are stable and systemic exam documented above is verified. Health care associated pneumonia: Agree with ongoing management and since patient is making steady coming from improvement, will follow along with you. Lung cancer: Chemoradiation has been on hold since 08/28/15. Plan is to resume concurrent chemoradiation once she is clinically optimized from her acute respiratory symptoms. I reconfirmed with patient today that she wants to continue treatment for her lung cancer. Upon discharge, we'll arrange for outpatient follow-up with Dr. Neil/ Dr. Mcbride for clinical evaluation prior to resuming treatment. Will follow patient peripherally along with you during this hospitalization but please do not hesitate to call regarding interval oncologic questions that may arise while she is in-house. Thank you for involving us in her care during this hospitalization. Oncology - Exam - Constitutional Vitals: Temp Pulse Resp BP Pulse Ox 97.7 F 100 16 114/66 96 09/02/16 10:40 09/02/16 10:40 09/02/16 10:40 09/02/16 10:40 09/02/16 10:40 Oncology - Results - Labs Labs: Short CBC 09/02/16 Range/Units 05:45 WBC 5.0 (4.3-11.1) K/mcL Hgb 10.4 L (11.5-15.4) g/dL Hct 32.0 L (35.3-44.9) % Plt Count 259 (140-400) K/mcL Neutrophils # 3.9 (1.6-8.9) K/mcL BMP 09/02/16 05:45 Sodium 135 L Potassium 3.3 L Chloride 99 Carbon Dioxide 24 BUN 18 Creatinine 0.57 Glucose 157 H Calcium 9.2 Attestation: My signature below is to certify that this patient is under my care and that I, or nurse practitioner, or a physician's general assistant working with me, has a face-to -face encounter with this patient.
[2016-09-01] MEDS: Vancomycin 750 MG in D5% in Water 250 ML IVPB SCH (18:41)
[2016-09-01] MEDS: rOPINIRole 0.25 MG TABLET PO SCH (21:02)
[2016-09-01] MEDS: Sennosides/Docusate Sodium TABLET PO SCH (21:03)
[2016-09-01] MEDS: Budesonide/Formoterol 160/4.5 MDI IH SCH (23:15)
[2016-09-02] MEDS: Piperacillin/Tazobactam 3.375 GM in D5% in Water (Mini-Bag+) 100 ML IVPB SCH ×3 (00:41→17:32)
[2016-09-02] MEDS: Gabapentin 300 MG CAPSULE PO SCH ×4 (01:35→20:50)
[2016-09-02] MEDS: *HR* HYDROcodone/Acet 5/325 mg TABLET PO PRN ×3 (01:35→17:29)
[2016-09-02] MEDS: Ipratropium/Albuterol Neb 3 ML IH SCH ×4 (04:04→23:09)
[2016-09-02] MEDS: Acetylcysteine 10% 2 ML INHSOL IH SCH ×4 (04:04→23:10)
[2016-09-02] MEDS: Vancomycin 750 MG in D5% in Water 250 ML IVPB SCH ×2 (06:28→17:29)
[2016-09-02] MEDS: *HR* Enoxaparin 40 MG/0.4 ML SYRINGE SQ SCH (06:31)
[2016-09-02 06:39] LABS: Hemoglobin 10.4 g/dL (11.5-15.4); Mean Corpuscular HGB Conc 32.5 g/dL (31.6-35.5); Mean Corpuscular Hemoglobin 26.7 pg (28.0-33.3); Mean Corpuscular Volume 82.3 fL (83.0-100.0); Mean Platelet Volume 9.6 fL (9.4-12.4); Platelet Count 259 K/mcL (140-400); Red Blood Count 3.89 M/mcL (3.82-4.97); Red Cell Distribution Width 16.6 % (11.5-14.5)
[2016-09-02 06:54] LABS: BUN/Creatinine Ratio 32 (6-26); Blood Urea Nitrogen 18 mg/dL (7-20); Calcium 9.2 mg/dL (8.6-10.8); Carbon Dioxide 24 mEq/L (19-29); Chloride 99 mEq/L (98-109); Glucose 157 mg/dL (70-99); Magnesium 1.9 mg/dL (1.6-2.6); Osmolality,Calculated 285 (280-300); Potassium 3.3 mEq/L (3.5-4.5); Sodium 135 mEq/L (136-145); eGFR For African Americans > 60 (> 60); eGFR For Non-African Americans > 60 (> 60)
[2016-09-02] MEDS ORDERED: Potassium Chloride Elixir 20 MEQ/15 ML UDC PO ONE (07:10)
[2016-09-02] MEDS: Lisinopril 20 MG TABLET PO SCH (08:36)
[2016-09-02] MEDS: Sennosides/Docusate Sodium TABLET PO SCH (08:36)
[2016-09-02 09:27] LABS: Lymphocytes # 0.4 K/mcL (0.6-4.6); Monocytes # 0.7 K/mcL (0.0-1.3); Neutrophils # 3.9 K/mcL (1.6-8.9)
[2016-09-02 09:28] LABS: Platelet Estimate Normal (Normal); Reactive Lymphocytes Present (Not Present)
--- NOTE | 2016-09-02 10:20 | Internal Med Progress Note ---
<Sandra Levy - Last Filed: 09/02/16 15:16> Date of Encounter: 09/02/16 Time of Encounter: 09:45 - Assessment and plan (1) HCAP (healthcare-associated pneumonia) Current Visit: Yes Status: Acute Assessment and plan: Undergoing chemo, evidenced by new tree-in-bud opacities, productive sputum. Cont Vanc/Zosyn, await culture return for deescalation. Sputum GPC, final results pending. Due to adverse effect on 1st chemo round, had requested oncology eval to delineate remaining chemo regimen. Appreciate input. Patient is agreeable to SNF/ECF, qualifying for supplemental O2. (2) Hypoxia Current Visit: No Status: Acute Assessment and plan: Cont supp oxygen support. Likely multifactorial, 2* multifocal pna in setting of known lung cancer. 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 Still on 5LNC, pleuritic discomfort and cough have improved. Interval she would have evaluation by oncology [employer]. Patient denies any substernal chest pain, abdominal pain, fever, chills. PT/OT would recommend SNF and she is agreeable. - Constitutional Vitals: Temp Pulse Resp BP Pulse Ox 97.5 F L 94 94 129/76 17 L 09/02/16 07:00 09/02/16 07:00 09/02/16 07:00 09/02/16 07:00 09/02/16 07:00 General appearance: Present: cachectic, cooperative, A&O X 3 (frail apperaing elderly female), answers questions appropriately - Head Head exam: Present: atraumatic, normocephalic - Eye Eye exam: Present: EOMI, sclera anicteric - ENT ENT exam: Present: mucous membranes moist - Neck Neck exam general surgery: Present: supple, trachea midline - Respiratory Respiratory exam: Present: accessory muscle use, decreased breath sounds (RUL), prolonged expiratory phase, rhonchi (all cisse, crackles near bases) - GI/Abdominal GI/Abdominal exam: Present: soft, no peritoneal signs. Absent: tenderness - Extremities Exam Extremities exam: Present: warm, radial pulses palpable and symetrical. Absent : pedal edema Internal Medicine: Result - Labs CBC & Chem 7: 09/02/16 05:45 09/02/16 05:45 Labs: Short CBC 09/02/16 Range/Units 05:45 WBC 5.0 (4.3-11.1) K/mcL Hgb 10.4 L (11.5-15.4) g/dL Hct 32.0 L (35.3-44.9) % Plt Count 259 (140-400) K/mcL Neutrophils # 3.9 (1.6-8.9) K/mcL BMP 09/02/16 05:45 Sodium 135 L Potassium 3.3 L Chloride 99 Carbon Dioxide 24 BUN 18 Creatinine 0.57 Glucose 157 H Calcium 9.2 Consult Discharge Plan - Plan Referrals: Jo-Ann Mensah VENEER JOINTER OFFBEARER [Primary Care Provider] - 09/08/16 1:00 pm (Please follow up as schedule..) <Caden Espinoza - Last Filed: 09/02/16 18:13> Date of Encounter: 09/02/16 - Assessment and plan (1) HCAP (healthcare-associated pneumonia) Current Visit: Yes Status: Acute - Constitutional Vitals: Temp Pulse Resp BP Pulse Ox 97.5 F L 103 17 135/76 94 L 09/02/16 15:11 09/02/16 15:11 09/02/16 15:58 09/02/16 15:11 09/02/16 15:58 Internal Medicine: Result - Labs CBC & Chem 7: 09/02/16 05:45 09/02/16 05:45 Labs: Short CBC 09/02/16 Range/Units 05:45 WBC 5.0 (4.3-11.1) K/mcL Hgb 10.4 L (11.5-15.4) g/dL Hct 32.0 L (35.3-44.9) % Plt Count 259 (140-400) K/mcL Neutrophils # 3.9 (1.6-8.9) K/mcL BMP 09/02/16 05:45 Sodium 135 L Potassium 3.3 L Chloride 99 Carbon Dioxide 24 BUN 18 Creatinine 0.57 Glucose 157 H Calcium 9.2 - Attending Attestation I examined this patient and my medical decision-making was reviewed with the Resident Physician. I agree with the documented findings, disposition and treatment plan as described except to the extent set forth below. We will continue Zosyn and vancomycin for healthcare associated pneumonia. The patient does report some diarrhea. I will stop the Senokot and Colace. Monitor temperature curve and white blood cell count. If diarrhea continues consider C. difficile testing. She is at high risk for morbidity and mortality complications to continue active cancer, pneumonia and antibiotic therapy requiring close blood level monitoring for toxicity
[2016-09-02] MEDS: Budesonide/Formoterol 160/4.5 MDI IH SCH ×2 (10:25→23:10)
[2016-09-02] MEDS: *HR* HYDROmorphone (PF) 1 MG/ML SYRINGE IVP PRN ×2 (12:53→20:50)
[2016-09-02] MEDS: rOPINIRole 0.25 MG TABLET PO SCH (20:50)
[2016-09-03] MEDS: Piperacillin/Tazobactam 3.375 GM in D5% in Water (Mini-Bag+) 100 ML IVPB SCH ×3 (02:47→16:05)
[2016-09-03] MEDS: Gabapentin 300 MG CAPSULE PO SCH ×4 (02:48→20:15)
[2016-09-03] MEDS: Ipratropium/Albuterol Neb 3 ML IH SCH ×4 (04:01→22:45)
[2016-09-03] MEDS: Acetylcysteine 10% 2 ML INHSOL IH SCH ×4 (04:02→22:45)
[2016-09-03 06:11] LABS: Basophils % 0.2 %; Hematocrit 33.3 % (35.3-44.9); Hemoglobin 10.5 g/dL (11.5-15.4); Immature Granulocytes % 0.7 % (0-4); Lymphocytes # 0.6 K/mcL (0.6-4.6); Lymphocytes % 10.1 %; Mean Corpuscular HGB Conc 31.5 g/dL (31.6-35.5); Mean Corpuscular Hemoglobin 26.5 pg (28.0-33.3); Mean Corpuscular Volume 84.1 fL (83.0-100.0); Mean Platelet Volume 9.2 fL (9.4-12.4); Monocytes # 0.4 K/mcL (0.0-1.3); Monocytes % 7.1 %; Neutrophils # 4.6 K/mcL (1.6-8.9); Platelet Count 273 K/mcL (140-400); Red Blood Count 3.96 M/mcL (3.82-4.97); Red Cell Distribution Width 16.8 % (11.5-14.5); Segmented Neutrophils % 81.9 %
[2016-09-03 06:20] LABS: BUN/Creatinine Ratio 30 (6-26); Blood Urea Nitrogen 17 mg/dL (7-20); Carbon Dioxide 24 mEq/L (19-29); Chloride 101 mEq/L (98-109); Glucose 140 mg/dL (70-99); Sodium 136 mEq/L (136-145); eGFR For African Americans > 60 (> 60); eGFR For Non-African Americans > 60 (> 60)
[2016-09-03 06:21] LABS: Osmolality,Calculated 286 (280-300)
[2016-09-03] MEDS: Vancomycin 750 MG in D5% in Water 250 ML IVPB SCH ×2 (06:22→18:00)
[2016-09-03] MEDS: *HR* Enoxaparin 40 MG/0.4 ML SYRINGE SQ SCH (06:23)
[2016-09-03 06:43] LABS: Anisocytosis 1+ (Not Present); Platelet Estimate Normal (Normal)
[2016-09-03 06:44] LABS: Reactive Lymphocytes Present (Not Present)
[2016-09-03] MEDS: *HR* HYDROmorphone (PF) 1 MG/ML SYRINGE IVP PRN ×2 (08:43→13:39)
[2016-09-03] MEDS: Lisinopril 20 MG TABLET PO SCH (08:43)
[2016-09-03] MEDS: Budesonide/Formoterol 160/4.5 MDI IH SCH ×2 (10:28→22:45)
--- NOTE | 2016-09-03 12:04 | Discharge Summary ---
Date of Encounter: 09/03/16 Time of Encounter: 09:50 - Discharge Diagnosis (1) HCAP (healthcare-associated pneumonia) Status: Acute (2) Hypoxia Status: Acute (3) Lung cancer Status: Chronic Qualifiers: Laterality: right Lung location: upper lobe of lung Qualified Code(s): C34.11 - Malignant neoplasm of upper lobe, right bronchus or lung (4) DVT prophylaxis Status: Acute - Discharge Medications Home Medications: Gabapentin [Neurontin] 600 mg PO Q6H 07/16/16 [History] Ropinirole HCl 0.5 mg PO HS 07/16/16 [History] Tramadol HCl 100 mg PO Q6H PRN 07/16/16 [History] Albuterol Sulfate [Albuterol Inhaler] 2 puff IH Q4H PRN 07/17/16 [History] Budesonide/Formoterol 160/4.5 [Symbicort 160/4.5] 2 puff IH BID PRN 07/17/16 [ History] Lisinopril [Lisinopril] 40 mg PO DAILY 08/07/16 [History] Ondansetron HCl [Zofran] 4 mg PO TID PRN #90 tablet 08/19/16 [Rx] Prochlorperazine Maleate [Compazine] 10 mg PO Q8HR PRN #90 tablet 08/19/16 [Rx] Amlodipine [Norvasc] 5 mg PO DAILY 08/31/16 [History] Dexamethasone [Dexamethasone] 4 mg PO BID 08/31/16 [History] Hydrocodone/Acetaminophen [[place] 5-325 Tablet] 1 each PO Q6H PRN 08/31/16 [ History] Oxycodone HCl 5 mg PO Q6H PRN 08/31/16 [History] Sennosides/Docusate Sodium [Senna-S Tablet] 1 each PO HS PRN 08/31/16 [History] Allergies/Adverse Reactions: Allergies acetaminophen [From [place]] Allergy (Verified 08/31/16 12:00) itching,hives codeine Allergy (Verified 08/31/16 12:00) itching,hives fluticasone [From Advair Diskus] Allergy (Verified 08/31/16 12:00) Difficulty Breathing hydrocodone [From [place]] Allergy (Verified 08/31/16 12:00) itching,hives salmeterol [From Advair Diskus] Allergy (Verified 08/31/16 12:00) Difficulty Breathing Date of admission: 08/30/16 19:04 Primary care physician: Jo-Ann Mensah CNP Consults: 08/30/16 22:29 Consult to Nutrition [CONS] Routine Comment: Consulting Provider: NUTRITION Reason for Dietary Consult: MST Score Consult to Marine Diver [CONS] Routine Reason for SW Consult: patient states she feels she needs home O2, has lung cancer, and has financial concerns. 09/01/16 13:24 Consult to Oncology Hematology [CONS] Routine Consulting Provider: Ronni Neil Reason for Consult: discussed with KIKE Haas with multifocal pneumonia on first round of chemo, consult by request of Attending Hospitalist Dr. Espinoza Time Notified: 13:25 Call Completed: Yes 09/03/16 11:23 Consult to Invasive Line Access Team [CONS] Routine Reason for Consult: Pt being discharged on IV antibiotics Line Type: EPIV - Patient Status Condition: Fair - Discharge Instructions Follow Up With: Jo-Ann Mensah CNP [Primary Care Provider] - 09/08/16 1:00 pm (Please follow up as schedule..) Hospital course: Ms. Guzman is a 80 year old female Seen/examined, breathing better - Time Spent with Patient Total time spent providing and/or coordinating discharge services: - Constitutional Vitals: Temp Pulse Resp BP Pulse Ox 97.8 F 104 18 121/74 94 L 09/03/16 11:30 09/03/16 11:30 09/03/16 11:30 09/03/16 11:30 09/03/16 11:30 General appearance: Present: cachectic, cooperative, A&O X 3 (frail apperaing elderly female), answers questions appropriately
[2016-09-03] MEDS ORDERED: predniSONE 20 MG TABLET PO ONE (13:54)
--- NOTE | 2016-09-03 15:33 | Internal Med Progress Note ---
Date of Encounter: 09/03/16 Time of Encounter: 15:00 - Assessment and plan (1) HCAP (healthcare-associated pneumonia) Current Visit: Yes Status: Acute Assessment and plan: Undergoing chemo, evidenced by new tree-in-bud opacities, productive sputum. Cont Vanc/Zosyn, await culture return for deescalation. Will start Vanc/Cefepime on dc. Sputum GPC, not acceptable for culture. Wheezing on exam, added additional prednisone 40mg PO QD, for 5 days. Due to adverse effect on 1st chemo round, had requested oncology eval to delineate remaining chemo regimen. Appreciate input. Patient is would now like to go home and have PT/OT as outpatient, will qualify for supp O2 tomorrow. (2) Hypoxia Current Visit: No Status: Acute Assessment and plan: Cont supp oxygen support. Likely multifactorial, 2* multifocal pna in setting of known lung cancer. 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 She is on 5LNC, affirms pleuritic discomfort and cough, but improved from previous. Denies fever, chills. - Constitutional Vitals: Temp Pulse Resp BP Pulse Ox 97.8 F 104 18 121/74 94 L 09/03/16 11:30 09/03/16 11:30 09/03/16 11:30 09/03/16 11:30 09/03/16 11:30 General appearance: Present: cachectic, cooperative, A&O X 3 (frail apperaing elderly female), answers questions appropriately - Head Head exam: Present: atraumatic, normocephalic - Eye Eye exam: Present: EOMI, sclera anicteric - ENT ENT exam: Present: mucous membranes moist - Neck Neck exam general surgery: Present: supple, trachea midline - Respiratory Respiratory exam: Present: decreased breath sounds (RUL), prolonged expiratory phase, rhonchi, wheezes (end exp) - Cardiovascular Cardiovascular exam: Present: +S1, +S2. Absent: JVD - GI/Abdominal GI/Abdominal exam: Present: soft, no peritoneal signs. Absent: tenderness - Extremities Exam Extremities exam: Present: warm, radial pulses palpable and symetrical Internal Medicine: Result - Labs CBC & Chem 7: 09/03/16 05:34 09/03/16 05:34 Labs: Short CBC 09/03/16 Range/Units 05:34 WBC 5.6 (4.3-11.1) K/mcL Hgb 10.5 L (11.5-15.4) g/dL Hct 33.3 L (35.3-44.9) % Plt Count 273 (140-400) K/mcL Neutrophils # 4.6 (1.6-8.9) K/mcL BMP 09/03/16 05:34 Sodium 136 Potassium 4.0 Chloride 101 Carbon Dioxide 24 BUN 17 Creatinine 0.56 L Glucose 140 H Calcium 9.0 Consult Discharge Plan - Plan Referrals: Jo-Ann Mensah LINOTYPE MACHINIST APPRENTICE [Primary Care Provider] - 09/08/16 1:00 pm (Please follow up as schedule..)
[2016-09-03] MEDS: rOPINIRole 0.25 MG TABLET PO SCH (20:14)
[2016-09-04] MEDS: Piperacillin/Tazobactam 3.375 GM in D5% in Water (Mini-Bag+) 100 ML IVPB SCH ×2 (00:59→09:24)
[2016-09-04] MEDS: Acetylcysteine 10% 2 ML INHSOL IH SCH ×2 (03:58→10:53)
[2016-09-04] MEDS: Ipratropium/Albuterol Neb 3 ML IH SCH ×2 (03:58→10:52)
[2016-09-04] MEDS: Gabapentin 300 MG CAPSULE PO SCH ×3 (04:08→13:18)
[2016-09-04] MEDS: *HR* HYDROcodone/Acet 5/325 mg TABLET PO PRN (04:16)
[2016-09-04] MEDS: *HR* Enoxaparin 40 MG/0.4 ML SYRINGE SQ SCH (05:33)
[2016-09-04] MEDS: Vancomycin 750 MG in D5% in Water 250 ML IVPB SCH (05:34)
[2016-09-04 05:46] LABS: Basophils % 0.2 %; Hematocrit 30.3 % (35.3-44.9); Hemoglobin 9.9 g/dL (11.5-15.4); Immature Granulocytes % 1.1 % (0-4); Lymphocytes # 0.7 K/mcL (0.6-4.6); Lymphocytes % 13.6 %; Mean Corpuscular HGB Conc 32.7 g/dL (31.6-35.5); Mean Corpuscular Volume 82.8 fL (83.0-100.0); Mean Platelet Volume 9.3 fL (9.4-12.4); Monocytes # 0.5 K/mcL (0.0-1.3); Monocytes % 8.8 %; Neutrophils # 4.1 K/mcL (1.6-8.9); Platelet Count 257 K/mcL (140-400); Red Blood Count 3.66 M/mcL (3.82-4.97); Red Cell Distribution Width 16.6 % (11.5-14.5); Segmented Neutrophils % 76.3 %
[2016-09-04 06:04] LABS: BUN/Creatinine Ratio 31 (6-26); Blood Urea Nitrogen 17 mg/dL (7-20); Calcium 8.7 mg/dL (8.6-10.8); Carbon Dioxide 26 mEq/L (19-29); Chloride 102 mEq/L (98-109); Glucose 188 mg/dL (70-99); Osmolality,Calculated 291 (280-300); Potassium 3.5 mEq/L (3.5-4.5); Sodium 137 mEq/L (136-145); eGFR For African Americans > 60 (> 60); eGFR For Non-African Americans > 60 (> 60)
[2016-09-04 06:48] LABS: Platelet Estimate Normal (Normal); Reactive Lymphocytes Present (Not Present); Toxic Granulation Present (Not Present)
[2016-09-04] MEDS: Lisinopril 20 MG TABLET PO SCH (09:24)
[2016-09-04] MEDS ORDERED: predniSONE 20 MG TABLET PO ONE (10:03)
--- NOTE | 2016-09-04 10:06 | Discharge Summary ---
<Sandra Levy - Last Filed: 09/04/16 10:28> Date of Encounter: 09/04/16 Time of Encounter: 09:25 - Discharge Diagnosis (1) HCAP (healthcare-associated pneumonia) Priority: Primary Status: Acute (2) Hypoxia Priority: Secondary Status: Acute (3) Lung cancer Priority: Secondary Status: Chronic Qualifiers: Laterality: right Lung location: upper lobe of lung Qualified Code(s): C34.11 - Malignant neoplasm of upper lobe, right bronchus or lung (4) DVT prophylaxis Priority: Secondary Status: Acute - Discharge Medications Prescriptions: Cefepime HCl/D5w [Cefepime-Dextrose 1 gm/50 ml] 1 gm IV BID #14 mls Omeprazole [PriLOSEC] 20 mg PO DAILY@0630 #30 capsule.dr PredniSONE 40 mg PO DAILY #6 tablet Vancomycin HCl in Dextrose 5 % [Vancomycin 750 mg/250 ml-D5w] 750 mg IV BID #14 plast..bag Home Medications: Gabapentin [Neurontin] 600 mg PO Q6H 07/16/16 [History] Ropinirole HCl 0.5 mg PO HS 07/16/16 [History] Tramadol HCl 100 mg PO Q6H PRN 07/16/16 [History] Albuterol Sulfate [Albuterol Inhaler] 2 puff IH Q4H PRN 07/17/16 [History] Budesonide/Formoterol 160/4.5 [Symbicort 160/4.5] 2 puff IH BID PRN 07/17/16 [ History] Lisinopril 40 mg PO DAILY 08/07/16 [History] Ondansetron HCl [Zofran] 4 mg PO TID PRN #90 tablet 08/19/16 [Rx] Prochlorperazine Maleate [Compazine] 10 mg PO Q8HR PRN #90 tablet 08/19/16 [Rx] Amlodipine [Norvasc] 5 mg PO DAILY 08/31/16 [History] Dexamethasone 4 mg PO BID 08/31/16 [History] Hydrocodone/Acetaminophen [[place] 5-325 Tablet] 1 each PO Q6H PRN 08/31/16 [ History] Oxycodone HCl 5 mg PO Q6H PRN 08/31/16 [History] Sennosides/Docusate Sodium [Senna-S Tablet] 1 each PO HS PRN 08/31/16 [History] Cefepime HCl/D5w [Cefepime-Dextrose 1 gm/50 ml] 1 gm IV BID #14 mls 09/04/16 [Rx ] Dexamethasone [Decadron] 4 mg PO BID tablet 09/04/16 [Rx] Omeprazole [PriLOSEC] 20 mg PO DAILY@0630 #30 capsule.dr 09/04/16 [Rx] PredniSONE 40 mg PO DAILY #6 tablet 09/04/16 [Rx] Vancomycin HCl in Dextrose 5 % [Vancomycin 750 mg/250 ml-D5w] 750 mg IV BID #14 plast..bag 09/04/16 [Rx] Allergies/Adverse Reactions: Allergies acetaminophen [From [place]] Allergy (Verified 08/31/16 12:00) itching,hives codeine Allergy (Verified 08/31/16 12:00) itching,hives fluticasone [From Advair Diskus] Allergy (Verified 08/31/16 12:00) Difficulty Breathing hydrocodone [From [place]] Allergy (Verified 08/31/16 12:00) itching,hives salmeterol [From Advair Diskus] Allergy (Verified 08/31/16 12:00) Difficulty Breathing Date of admission: 08/30/16 19:04 Primary care physician: Jo-Ann Mensah CNP Consults: 08/30/16 22:29 Consult to Nutrition [CONS] Routine Comment: Consulting Provider: NUTRITION Reason for Dietary Consult: MST Score Consult to Food And Nutrition Services Assistant [CONS] Routine Reason for SW Consult: patient states she feels she needs home O2, has lung cancer, and has financial concerns. 09/01/16 13:24 Consult to Oncology Hematology [CONS] Routine Consulting Provider: Ronni Neil Reason for Consult: discussed with IKKE Haas with multifocal pneumonia on first round of chemo, consult by request of Attending Hospitalist Dr. Espinoza Time Notified: 13:25 Call Completed: Yes 09/03/16 11:23 Consult to Invasive Line Access Team [CONS] Routine Reason for Consult: Pt being discharged on IV antibiotics Line Type: EPIV Discharging clinician: Caden Espinoza Anticipated date of discharge: 09/04/16 - Patient Status Disposition: Home Health Service Condition: Fair Functional capacity at discharge: independent ambulation Overall status at discharge: patient is progressing back to baseline - Discharge Instructions Instructions: Anemia (GEN), Pneumonia (DC) Follow Up With: Ronni Neil MD [Partnered Physician] - 09/18/16 3:00 pm () Jo-Ann Mensah CNP [Primary Care Provider] - 09/08/16 1:00 pm (Please follow up as schedule..) - Diet and Activity Activity: increase activity as tolerated, wear oxygen at all times Diet: advance to your usual diet Hospital course: Ms. Guzman is a 80 year old female history RUL NSCLC R. hilar adenopathy, chemotherapy, radiation followed by Dr. Neil, Dr Mcbride, GERD, HTN, receiving chemo. Patient would present to [facility] 08/30/16 with chief concern: nausea/vomiting, accompanied by cough. Comorbidities would include: HTN, HLD, GERD, diabetes, former smoker. Imaging with CTA Chest disclosed: No substantial change in spiculated right upper lobe mass. Slight decrease in pretracheal lymph node. Progression of tree-in-bud nodules in the lower lungs as well as new partial consolidation in the lower lobes concerning for pneumonia although progression of disease also a consideration. Postsurgical changes from kyphoplasty as above. New scleroses and heterogeneous appearance of T8 with loss of approximately 20% vertebral body height. No discrete lesion visualized however if there is concern for pathologic fracture MRI would be more sensitive. Compression deformity of T6 with loss of about 50% vertebral body height, new. Clinical impression consistent with health-care associated pneumonia. Started on broad spectrum empiric antibiotics. BC x 2 negative, Sputum sample did not meet acceptability criteria. Patient improved clinically. She did have some wheezing suggestive of COPD exacerbation, so started on prednisone 40mg daily in addition to her regimen decadron 4mg PO BID. SW consult for HH and O2, patient did qualify for 4LNC supplemental oxygen. At time of discharge, patient was clinically improved, hemodynamically stable, progressing to baseline, and agreeable with plan of care. Patient was advised to seek immediate medical attention for any new or worsening symptoms including but not limited to fever, chills, chest pain, chest pressure, dyspnea, cough, abdominal pain, nausea, vomiting, diarrhea, bloody stool, urine and the patient voiced understanding. Patient will follow-up with primary care physician: Jo-Ann Mensah. Follow-up with Dr. Neil of [facility]. - Time Spent with Patient Total time spent providing and/or coordinating discharge services: Greater than 30 minutes - Constitutional Vitals: Temp Pulse Resp BP Pulse Ox 97.9 F 92 16 128/73 96 09/04/16 06:57 09/04/16 06:57 09/04/16 06:57 09/04/16 06:57 09/04/16 08:13 General appearance: Present: cachectic, cooperative, A&O X 3 (frail apperaing elderly female), answers questions appropriately - Head Head exam: Present: atraumatic, normocephalic - Eye Eye exam: Present: EOMI, sclera anicteric - ENT ENT exam: Present: mucous membranes moist - Neck Neck exam general surgery: Present: trachea midline - Respiratory Respiratory exam: Present: decreased breath sounds (RUL), prolonged expiratory phase, wheezes. Absent: rhonchi - Cardiovascular Cardiovascular exam: Present: +S1, +S2 - GI/Abdominal GI/Abdominal exam: Present: soft, no peritoneal signs. Absent: tenderness - Extremities Exam Extremities exam: Present: warm, radial pulses palpable and symetrical. Absent : pedal edema - Neurological Exam Neurological exam: Absent: facial droop, speech deficit <Caden Espinoza - Last Filed: 09/04/16 17:08> Date of Encounter: 09/04/16 - Discharge Diagnosis (1) HCAP (healthcare-associated pneumonia) Status: Acute Date of admission: 08/30/16 19:04 Primary care physician: Jo-Ann Mensah CNP Consults: 08/30/16 22:29 Consult to Nutrition [CONS] Routine Comment: Consulting Provider: NUTRITION Reason for Dietary Consult: MST Score Consult to Food And Nutrition Services Assistant [CONS] Routine Reason for SW Consult: patient states she feels she needs home O2, has lung cancer, and has financial concerns. 09/01/16 13:24 Consult to Oncology Hematology [CONS] Routine Consulting Provider: Ronni Neil Reason for Consult: discussed with KIKE Haas with multifocal pneumonia on first round of chemo, consult by request of Attending Hospitalist Dr. Espinoza Time Notified: 13:25 Call Completed: Yes 09/03/16 11:23 Consult to Invasive Line Access Team [CONS] Routine Reason for Consult: Pt being discharged on IV antibiotics Line Type: EPIV - Patient Status Functional capacity at discharge: independent ambulation Overall status at discharge: patient is progressing back to baseline - Diet and Activity Activity: increase activity as tolerated, wear oxygen at all times Diet: advance to your usual diet Hospital course: Ms. Guzman is a 80 year old female - Time Spent with Patient Total time spent providing and/or coordinating discharge services: - Constitutional Vitals: Temp Pulse Resp BP Pulse Ox 97.5 F L 105 17 103/60 95 09/04/16 10:52 09/04/16 10:52 09/04/16 10:52 09/04/16 10:52 09/04/16 10:52 - Attending Attestation I examined this patient and my medical decision-making was reviewed with the Resident Physician. I agree with the documented findings, disposition and treatment plan as described except to the extent set forth below. Continue IV antibiotics upon discharge for pneumonia. Follow-up with the oncologist regarding treatment of lung cancer. Continue with oxygen by nasal cannula at all times. Avoid cigarette smoke.
--- NOTE | 2016-09-04 10:37 | Physician Discharge Referral ---
<Sandra Levy - Last Filed: 09/04/16 10:36> Home Health/Hosp Referral Info Transfer to: Home Health Attending Provider: Dr. Espinoza Provider in Charge Post Discharge: PCP - Diagnosis (1) HCAP (healthcare-associated pneumonia) Priority: Primary Status: Acute (2) Hypoxia Priority: Secondary Status: Acute (3) Lung cancer Priority: Secondary Status: Chronic (4) DVT prophylaxis Priority: Secondary Status: Acute - Respiratory Orders Oxygen / L per min (4) Smoking Cessation: Smoking cessation has been advised. For more information, call the [place] [email or web address] Quit Line at 0-832-HVOU-NOW. - Diet/Nutrition Diet/Nutrition Orders: No Concentrated Sweets - Activity Activity Orders: Up ad armen, Ambulate - Services Needed Following services are medically necessary services: Home Health Aide, Physical Therapy, Occupational Therapy - Transfer Medications Prescriptions: Cefepime HCl/D5w [Cefepime-Dextrose 1 gm/50 ml] 1 gm IV BID #14 mls Omeprazole [PriLOSEC] 20 mg PO DAILY@0630 #30 capsule. PredniSONE 40 mg PO DAILY #6 tablet Vancomycin HCl in Dextrose 5 % [Vancomycin 750 mg/250 ml-D5w] 750 mg IV BID #14 plast..bag Home Medications: Gabapentin [Neurontin] 600 mg PO Q6H 07/16/16 [History] Ropinirole HCl 0.5 mg PO HS 07/16/16 [History] Tramadol HCl 100 mg PO Q6H PRN 07/16/16 [History] Albuterol Sulfate [Albuterol Inhaler] 2 puff IH Q4H PRN 07/17/16 [History] Budesonide/Formoterol 160/4.5 [Symbicort 160/4.5] 2 puff IH BID PRN 07/17/16 [ History] Lisinopril 40 mg PO DAILY 08/07/16 [History] Ondansetron HCl [Zofran] 4 mg PO TID PRN #90 tablet 08/19/16 [Rx] Prochlorperazine Maleate [Compazine] 10 mg PO Q8HR PRN #90 tablet 08/19/16 [Rx] Amlodipine [Norvasc] 5 mg PO DAILY 08/31/16 [History] Dexamethasone 4 mg PO BID 08/31/16 [History] Hydrocodone/Acetaminophen [[place] 5-325 Tablet] 1 each PO Q6H PRN 08/31/16 [ History] Oxycodone HCl 5 mg PO Q6H PRN 08/31/16 [History] Sennosides/Docusate Sodium [Senna-S Tablet] 1 each PO HS PRN 08/31/16 [History] Cefepime HCl/D5w [Cefepime-Dextrose 1 gm/50 ml] 1 gm IV BID #14 mls 09/04/16 [Rx ] Dexamethasone [Decadron] 4 mg PO BID tablet 09/04/16 [Rx] Omeprazole [PriLOSEC] 20 mg PO DAILY@0630 #30 capsule.dr 09/04/16 [Rx] PredniSONE 40 mg PO DAILY #6 tablet 09/04/16 [Rx] Vancomycin HCl in Dextrose 5 % [Vancomycin 750 mg/250 ml-D5w] 750 mg IV BID #14 plast..bag 09/04/16 [Rx] Allergies/Adverse Reactions: Allergies acetaminophen [From [place]] Allergy (Verified 08/31/16 12:00) itching,hives codeine Allergy (Verified 08/31/16 12:00) itching,hives fluticasone [From Advair Diskus] Allergy (Verified 08/31/16 12:00) Difficulty Breathing hydrocodone [From [place]] Allergy (Verified 08/31/16 12:00) itching,hives salmeterol [From Advair Diskus] Allergy (Verified 08/31/16 12:00) Difficulty Breathing Certification: Further, I certify that my clinical findings support that this patient is homebound (i.e. absences from home require considerable and taxing effort and are for medical reasons or adventist services or infrequently or short duration when for other reasons) because: Homebound Reason: Leaving home requires considerable and taxing effort due to condition, Severity of cardiac or pulmonary status limits activity tolerance Attestation: My signature below is to certify that this patient is under my care and that I, or nurse practitioner, or a physician's paperhanger assistant working with me, has a face-to -face encounter with this patient. <Caden Espinoza - Last Filed: 09/04/16 17:09> - Diagnosis (1) HCAP (healthcare-associated pneumonia) Status: Acute - Respiratory Orders Oxygen / L per min Smoking Cessation: Smoking cessation has been advised. For more information, call the [place] [employer] Quit Line at 5-796-OLWT-NOW. - Diet/Nutrition Diet/Nutrition Orders: No Concentrated Sweets - Activity Activity Orders: Up ad armen, Ambulate - Services Needed Following services are medically necessary services: Home Health Aide, Physical Therapy, Occupational Therapy Certification: Further, I certify that my clinical findings support that this patient is homebound (i.e. absences from home require considerable and taxing effort and are for medical reasons or adventist services or infrequently or short duration when for other reasons) because: Attestation: My signature below is to certify that this patient is under my care and that I, or nurse practitioner, or a physician's paperhanger assistant working with me, has a face-to -face encounter with this patient.
[2016-09-04] MEDS: Budesonide/Formoterol 160/4.5 MDI IH SCH (10:52)
[2016-09-04 10:53] VITALS: BP 103/60
[2016-09-04] MEDS ORDERED: Cefepime HCl 1,000 MG in D5% in Water (Mini-Bag+) 100 ML IVPB SCH (11:20)
[2016-09-04] MEDS ORDERED: Aminoglycoside Consult 1 EACH MC ONE (15:26)
== END 2016-09-04 15:27 | disposition home health service (06) | DRG 190 ==
LOC: 2ANU 12:54 → EMEROO 12:54 → SUATTDRO 19:04 → 2ANU 19:04
PROVIDERS: ADMIT Internal Medicine; ATTEND Internal Medicine

== ENCOUNTER 2016-10-06 06:33 | Inpatient (IN) ==
--- NOTE | 2016-10-06 07:00 | Emergency Department Note ---
Disposition Clinical Impression: Pneumonia Qualifiers: Pneumonia type: due to unspecified organism Laterality: left Lung location: unspecified part of lung Qualified Code(s): J18.9 - Pneumonia, unspecified organism Disposition: Still a Patient Referrals: Jo-Ann Mensah CNP [Primary Care Provider] - Forms: ED Satisfaction Letter Time of Disposition: 11:00 SOB HPI - General Chief Complaint: ED Shortness of Breath/Dyspnea Stated Complaint: Right side pain/ALEX Time Seen by Provider: 10/06/16 06:58 Source: patient, family Mode of arrival: wheelchair Limitations: no limitations Nursing Notes Reviewed: Yes Vital Signs Reviewed: Yes - History of Present Illness Patient presents to the ED with complaints of shortness of breath which has progressively increased in the last 5 hours. She had a history of lung CA and is currently undergoing chemo and radiation. Her last chemo was Wednesday, and last radiation Wednesday last week. She is further complaining of pain in the right lower quadrant. Abdomen tender to touch. She is alert, oriented and answers all questions appropriately. At home she has oxygen and uses oral suction as she has been unable to expectorate any oral secretions. Cough is moist, sputum quite thick and tenacious. Pt Subjective Complaint: shortness of breath Onset (ago): hour(s) (5) Context: recent illness Severity: moderate, severe Consistency/Duration: gradually worsening Improves with: nothing Worsens with: exertion, coughing Known history of: other (lung CA) Associated symptoms: Reports: other (lower abdominal pain on the right ) Treatment prior to arrival: oxygen Cough present: Yes Cough Description: Involuntary, Productive, Moist, Rattling Cough Frequency: Intermittent Sputum production: Yes Sputum Amount: Large - Related Data Home oxygen amount: 2 liters Home Medications Medication Instructions Recorded Confirmed Gabapentin [Neurontin] 600 mg PO Q6H 07/16/16 08/31/16 Ropinirole HCl 0.5 mg PO HS 07/16/16 08/31/16 Tramadol HCl 100 mg PO Q6H PRN 07/16/16 08/31/16 Lisinopril 40 mg PO DAILY 08/07/16 08/31/16 Amlodipine [Norvasc] 5 mg PO DAILY 08/31/16 08/31/16 Dexamethasone 4 mg PO BID 08/31/16 08/31/16 Oxycodone HCl 5 mg PO Q6H PRN 08/31/16 08/31/16 Sennosides/Docusate Sodium 1 each PO HS PRN 08/31/16 08/31/16 [Senna-S Tablet] Previous Rx's Medication Instructions Recorded Ondansetron HCl [Zofran] 4 mg PO TID PRN #90 tablet 08/19/16 Prochlorperazine Maleate 10 mg PO Q8HR PRN #90 tablet 08/19/16 [Compazine] Cefepime HCl/D5w 1 gm IV BID #14 mls 09/04/16 [Cefepime-Dextrose 1 gm/50 ml] Dexamethasone [Decadron] 4 mg PO BID tablet 09/04/16 Omeprazole [PriLOSEC] 20 mg PO DAILY@30 #30 capsule. 09/04/16 PredniSONE 40 mg PO DAILY #6 tablet 09/04/16 Vancomycin HCl in Dextrose 5 % 750 mg IV BID #14 plast..bag 09/04/16 [Vancomycin 750 mg/250 ml-D5w] Fluconazole [Diflucan] 100 mg PO DAILY #8 tablet 09/08/16 Magic Mouthwash [Magic Mouthwash 10 ml PO QID PRN #240 ml 09/08/16 BLM] HYDROcodone/Acet 10/325 mg [[place] 1 - 2 tab PO Q4HR PRN #100 tab 09/15/16 10-325 mg] Levofloxacin [Levaquin] 750 mg PO DAILY #10 tablet 09/22/16 PredniSONE 10 mg PO DAILY #21 tablet 09/22/16 Albuterol Sulfate [Albuterol 2 puff IH Q4H PRN #1 inhaler 09/28/16 Inhaler] Amoxicillin/Clavulanate [Augmentin] 500 mg PO BIDWM #20 tablet 09/28/16 Budesonide/Formoterol 160/4.5 2 puff IH BID #1 inhaler 09/28/16 [Symbicort 160/4.5] Budesonide/Formoterol 160/4.5 2 puff IH BIDR #1 hfa.aer.ad 09/28/16 [Symbicort 160/4.5] Sodium Polystyrene Sulfonate 15 gm PO BID #4 mls 09/30/16 [Kayexalate] Dexamethasone [Decadron] 4 mg PO BID #60 tab 10/01/16 Allergies Allergy/AdvReac Type Severity Reaction Status Date / Time acetaminophen [From [place]] Allergy itching,hiv Verified 08/31/16 12:00 es codeine Allergy itching,hiv Verified 08/31/16 12:00 es fluticasone Allergy Difficulty Verified 08/31/16 12:00 [From Advair Diskus] Breathing hydrocodone [From [place]] Allergy itching,hiv Verified 08/31/16 12:00 es salmeterol Allergy Difficulty Verified 08/31/16 12:00 [From Advair Diskus] Breathing All systems ED: reviewed and negative except as stated. Constitutional: Denies: fever, chills, weakness, weight change Eyes: Denies: eye pain, eye discharge, vision change ENT ED: Reports: congestion. Denies: ear pain, throat pain, dental pain, hearing loss, epistaxis, dysphagia Cardiovascular: Reports: orthopnea Respiratory: Reports: cough, dyspnea, wheezes, sputum production Gastrointestinal: Reports: abdominal pain (RLQ) Genitourinary: Denies: dysuria, frequency, hematuria, discharge Musculoskeletal: Denies: back pain, neck pain, arthralgia, myalgia Integumentary: Denies: rash, abrasion, lesions Past Medical History - Past Medical History Attestation: Yes The following information was validated with the patient. 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 Absent: tenderness, meningismus, lymphadenopathy - Chest Chest inspection: Present: symmetric chest wall rise, tenderness, other ( radiation bowling and chest skin discoloration evident) - Respiratory Respiratory exam: Present: wheezes, accessory muscle use, prolonged expiratory phase, other (thick tenacious sputum - necessary to suction as patient unable to clear throat) - Cardiovascular Cardiovascular exam: Present: regular rate, normal rhythm, normal heart sounds. Absent: systolic murmur, diastolic murmur, JVD - Abdominal Exam Abdominal exam: Present: tenderness (RLQ), diminished bowel sounds. Absent: distention, guarding, rebound Abdominal tenderness: Present: RLQ, moderate - Extremities Exam Extremities exam: Present: normal inspection, full ROM. Absent: tenderness, pedal edema - Expanded Lower Extremity Exam Gait: not tested/not observed - Back Exam Back exam: Present: normal inspection, full ROM. Absent: tenderness, muscle spasm - Neurological Exam Neurological exam: Present: alert, oriented X3, CN II-XII intact - Psychiatric Psychiatric exam: Present: normal affect, normal mood - Skin Skin exam: Present: warm, dry, intact, normal color Course Vital Signs Temperature 97.4 F L 10/06/16 06:34 Pulse Rate 109 10/06/16 06:34 Respiratory Rate 20 10/06/16 06:34 Blood Pressure 104/68 10/06/16 06:34 O2 Sat by Pulse Oximetry 90 L 10/06/16 06:34 Temperature 97.4 F L 10/06/16 06:34 Pulse Rate 109 10/06/16 06:34 Respiratory Rate 20 10/06/16 06:34 Blood Pressure 104/68 10/06/16 06:34 O2 Sat by Pulse Oximetry 96 10/06/16 07:09 Oxygen Delivery Oxygen Delivery Nasal Cannula Shortness of Breath/Dyspnea - Lab Data Result diagrams: 10/06/16 07:50 10/06/16 07:50 Lab Results 10/06/16 10/06/16 10/06/16 Range/Units 07:50 07:50 07:50 WBC 4.3 (4.3-11.1) K/mcL RBC 4.00 (3.82-4.97) M/mcL Hgb 11.2 L (11.5-15.4) g/dL Hct 34.5 L (35.3-44.9) % MCV 86.3 (83.0-100.0) fL MCH 28.0 (28.0-33.3) pg MCHC 32.5 (31.6-35.5) g/dL RDW 20.6 H (11.5-14.5) % Plt Count 217 (140-400) K/mcL MPV 9.9 (9.4-12.4) fL Seg Neutrophils % 30.0 % Band Neutrophils % 52.0 H (0-4) % Lymphocytes % 10.0 % Monocytes % 8.0 % Neutrophils # 3.5 (1.6-8.9) K/mcL Lymphocytes # 0.4 L (0.6-4.6) K/mcL Monocytes # 0.3 (0.0-1.3) K/mcL Platelet Estimate Normal (Normal) Large Platelets Present A (Not Present) Immature Plt Fraction 4.1 (1.1-6.1) % Sodium 134 L (136-145) mEq/L Potassium 4.5 (3.5-4.5) mEq/L Chloride 100 (98-109) mEq/L Carbon Dioxide 21 (19-29) mEq/L BUN 37 H (7-20) mg/dL Creatinine 0.70 (0.57-1.11) mg/dL Est GFR ( Amer) > 60 (> 60) Est GFR (Non-Af Amer) > 60 (> 60) BUN/Creatinine Ratio 53 H (6-26) Glucose 188 H (70-99) mg/dL Calculated Osmolality 292 (280-300) Lactic Acid (0.5-2.2) mmol/L Calcium 9.8 (8.6-10.8) mg/dL Troponin I 0.01 (0-0.03) ng/mL B-Natriuretic Peptide (0-100) pg/mL Urine Color (Yellow) Urine Clarity (Clear) Urine pH (5.0-8.0) pH Units Ur Specific [place] (1.010-1.025) Urine Protein (Neg-Trace) mg/dL Urine Glucose (UA) (Normal) mg/dL Urine Ketones (Negative) mg/dL Urine Blood (Negative) Urine Nitrite (Negative) Urine Bilirubin (Negative) Urine Urobilinogen (Normal) mg/dL Ur Leukocyte Esterase (Negative) Urine Microscopic RBC (0-3) per hpf Urine Microscopic WBC (0-3) per hpf Ur Squamous Epith Cells (None-Few) per lpf Urine Bacteria (None-Few) per hpf Hyaline Casts (None-Few) per lpf Ur Culture Indicated? (NO) 10/06/16 10/06/1610/06/17 Range/Units 07:50 09:00 11:15 WBC (4.3-11.1) K/mcL RBC (3.82-4.97) M/mcL Hgb (11.5-15.4) g/dL Hct (35.3-44.9) % MCV (83.0-100.0) fL MCH (28.0-33.3) pg MCHC (31.6-35.5) g/dL RDW (11.5-14.5) % Plt Count (140-400) K/mcL MPV (9.4-12.4) fL Seg Neutrophils % % Band Neutrophils % (0-4) % Lymphocytes % % Monocytes % % Neutrophils # (1.6-8.9) K/mcL Lymphocytes # (0.6-4.6) K/mcL Monocytes # (0.0-1.3) K/mcL Platelet Estimate (Normal) Large Platelets (Not Present) Immature Plt Fraction (1.1-6.1) % Sodium (136-145) mEq/L Potassium (3.5-4.5) mEq/L Chloride (98-109) mEq/L Carbon Dioxide (19-29) mEq/L BUN (7-20) mg/dL Creatinine (0.57-1.11) mg/dL Est GFR ( Amer) (> 60) Est GFR (Non-Af Amer) (> 60) BUN/Creatinine Ratio (6-26) Glucose (70-99) mg/dL Calculated Osmolality (280-300) Lactic Acid 3.4 H (0.5-2.2) mmol/L Calcium (8.6-10.8) mg/dL Troponin I (0-0.03) ng/mL B-Natriuretic Peptide 78 (0-100) pg/mL Urine Color Yellow (Yellow) Urine Clarity Clear (Clear) Urine pH 5.0 (5.0-8.0) pH Units Ur Specific [place] 1.018 (1.010-1.025) Urine Protein Trace (Neg-Trace) mg/dL Urine Glucose (UA) Normal (Normal) mg/dL Urine Ketones Negative (Negative) mg/dL Urine Blood Negative (Negative) Urine Nitrite Negative (Negative) Urine Bilirubin Negative (Negative) Urine Urobilinogen Normal (Normal) mg/dL Ur Leukocyte Esterase Negative (Negative) Urine Microscopic RBC 0-3 (0-3) per hpf Urine Microscopic WBC 0-3 (0-3) per hpf Ur Squamous Epith Cells Many H (None-Few) per lpf Urine Bacteria None Seen (None-Few) per hpf Hyaline Casts Few (None-Few) per lpf Ur Culture Indicated? NO (NO) S.B.AYasmany. - S.B.ARose Background: Presenting Complaint, Relevant PMH, Meds, & Allergies Assessment: Vital Signs, Course and respsone to treatment, Exam Concerns, Patient/Family Expectation, Pertinant Lab Results, Outstanding Labs S.B.A.R. Report Given to: MD Samuel S.B.ARose Repor Time: 11:12
[2016-10-06 08:03] LABS: Hematocrit 34.5 % (35.3-44.9); Hemoglobin 11.2 g/dL (11.5-15.4); Immature Platelets 4.1 % (1.1-6.1); Mean Corpuscular HGB Conc 32.5 g/dL (31.6-35.5); Mean Corpuscular Volume 86.3 fL (83.0-100.0); Mean Platelet Volume 9.9 fL (9.4-12.4); Platelet Count 217 K/mcL (140-400); Red Cell Distribution Width 20.6 % (11.5-14.5)
[2016-10-06 08:14] LABS: BUN/Creatinine Ratio 53 (6-26); Blood Urea Nitrogen 37 mg/dL (7-20); Calcium 9.8 mg/dL (8.6-10.8); Carbon Dioxide 21 mEq/L (19-29); Chloride 100 mEq/L (98-109); Glucose 188 mg/dL (70-99); Osmolality,Calculated 292 (280-300); Potassium 4.5 mEq/L (3.5-4.5); Sodium 134 mEq/L (136-145); eGFR For African Americans > 60 (> 60); eGFR For Non-African Americans > 60 (> 60)
[2016-10-06 08:18] LABS: Lymphocytes # 0.4 K/mcL (0.6-4.6); Monocytes # 0.3 K/mcL (0.0-1.3); Neutrophils # 3.5 K/mcL (1.6-8.9)
[2016-10-06 08:19] LABS: Large Platelets Present (Not Present); Platelet Estimate Normal (Normal)
[2016-10-06 09:31] LABS: Bilirubin,Urine Negative (Negative); Blood,Urine Negative (Negative); Clarity,Urine Clear (Clear); Color,Urine Yellow (Yellow); Glucose,Urine (UA) Normal (Normal); Ketones,Urine Negative (Negative); Leukocyte Esterase,Urine Negative (Negative); Nitrite,Urine Negative (Negative); Protein,Urine Trace mg/dL (Neg-Trace); Specific Gravity,Urine 1.018 (1.010-1.025); Urobilinogen,Urine Normal (Normal)
[2016-10-06 09:33] LABS: Bacteria,Urine None Seen per hpf (None-Few); Hyaline Casts,Urine Few per lpf (None-Few); RBC,Urine 0-3 per hpf (0-3); Squamous Epithelial Cell,Urine Many per lpf (None-Few); WBC,Urine 0-3 per hpf (0-3)
[2016-10-06] MEDS ORDERED: Piperacillin/Tazobactam 3.375 GM in D5% in Water (Mini-Bag+) 100 ML IVPB ONE (10:14)
[2016-10-06] MEDS ORDERED: 0.9 % Sodium Chloride 500 ML IV ONE (12:41)
[2016-10-06] MEDS ORDERED: 0.9 % Sodium Chloride 1,000 ML IVC ONE (14:03)
[2016-10-06] MEDS ORDERED: Ipratropium/Albuterol Neb 3 ML IH PRN (14:12)
[2016-10-06] MEDS ORDERED: Ondansetron 4 MG/2 ML VIAL IVP PRN (14:12)
--- NOTE | 2016-10-06 14:17 | Internal Med History&Physical ---
Date of Encounter: 10/06/16 Time of Encounter: 14:14 Assessment and Plan (1) Colitis Current visit: Yes Status: Acute Patient has inflammation with pneumatosis in the cecal area. She also has stranding around her appendix. She will be covered empirically with broad- spectrum antibiotics will keep her NPO. I will discuss the case with the surgeon. Patient is behaving septic. She is on the [place] is an outpatient probably because of her chemotherapy. Will therefore give stress doses of steroids (2) HCAP (healthcare-associated pneumonia) Current visit: No Status: Acute Will treat for HCAP. 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 On chemotherapy and radiation Qualifiers: Laterality: right Lung location: upper lobe of lung Qualified Code(s): C34.11 - Malignant neoplasm of upper lobe, right bronchus or lung Internal Medicine - H&P: HPI Chief complaint: abdominal pain History of present illness: Ms. Guzmna is a 80 year old female with multiple medical problems including lung cancer on chemotherapy and radiation presents the emergency room today with main complaint of abdominal pain and weakness. Since 4 days ago patient started noticing pain in the right lower abdomen. She has been nauseous not been eating or drinking in the past few days. She has been getting progressively weaken lethargic. She continues to move her bowels. She has also been having productive cough of yellowish sputum and increased shortness of breath. She has been having chills. Abdominal CT scan performed in the emergency room shows evidence of colitis in the cecal area with some stranding around appendix. Past Med Surg Social Fam HX - Past Medical History Medical history: cancer, hypertension, malignancy, other Psychiatric history: no psych history - Past Surgical History Surgical History: non-contributory - Social History Smoking Status: Former smoker Smokeless Tobacco Status: No Alcohol use: none Drug use: none Internal Medicine - H&P: Meds Gabapentin [Neurontin] 600 mg PO Q6H 07/16/16 [History] Ropinirole HCl 0.5 mg PO HS 07/16/16 [History] Tramadol HCl 100 mg PO Q6H PRN 07/16/16 [History] Lisinopril 40 mg PO DAILY 08/07/16 [History] Ondansetron HCl [Zofran] 4 mg PO TID PRN #90 tablet 08/19/16 [Rx] Prochlorperazine Maleate [Compazine] 10 mg PO Q8HR PRN #90 tablet 08/19/16 [Rx] Amlodipine [Norvasc] 5 mg PO DAILY 08/31/16 [History] Oxycodone HCl 5 mg PO Q6H PRN 08/31/16 [History] Sennosides/Docusate Sodium [Senna-S Tablet] 1 each PO HS PRN 08/31/16 [History] Cefepime HCl/D5w [Cefepime-Dextrose 1 gm/50 ml] 1 gm IV BID #14 mls 09/04/16 [Rx ] Omeprazole [PriLOSEC] 20 mg PO DAILY@629 #30 capsule. 09/04/16 [Rx] Vancomycin HCl in Dextrose 5 % [Vancomycin 750 mg/250 ml-D5w] 750 mg IV BID #14 plast..bag 09/04/16 [Rx] Magic Mouthwash [Magic Mouthwash BLM] 10 ml PO QID PRN #240 ml 09/08/16 [Rx] HYDROcodone/Acet 10/325 mg [[place] 10-325 mg] 1 - 2 tab PO Q4HR PRN #100 tab [Rx] Albuterol Sulfate [Albuterol Inhaler] 2 puff IH Q4H PRN #1 inhaler 09/28/16 [Rx] Amoxicillin/Clavulanate [Augmentin] 500 mg PO BIDWM #20 tablet 09/28/16 [Rx] Budesonide/Formoterol 160/4.5 [Symbicort 160/4.5] 2 puff IH BID #1 inhaler 09/28 [Rx] Budesonide/Formoterol 160/4.5 [Symbicort 160/4.5] 2 puff IH BIDR #1 hfa.aer.ad 09/28/16 [Rx] Sodium Polystyrene Sulfonate [Kayexalate] 15 gm PO BID #4 mls 09/30/16 [Rx] Dexamethasone [Decadron] 4 mg PO BID #60 tab 10/01/16 [Rx] Allergies acetaminophen [From [place]] Allergy (Verified 08/31/16 12:00) itching,hives codeine Allergy (Verified 08/31/16 12:00) itching,hives fluticasone [From Advair Diskus] Allergy (Verified 08/31/16 12:00) Difficulty Breathing hydrocodone [From [place]] Allergy (Verified 08/31/16 12:00) itching,hives salmeterol [From Advair Diskus] Allergy (Verified 08/31/16 12:00) Difficulty Breathing All Systems PM: A 10-system review of systems was performed and is negative for pertinent findings except as documented above in the HPI. Review of systems: 10 point ROS is negative except for HPI - Constitutional Vitals: Temp Pulse Resp BP Pulse Ox 97.4 F L 92 16 97/58 99 10/06/16 06:34 10/06/16 14:01 10/06/16 14:01 10/06/16 14:01 10/06/16 14:01 Exam: Gen.: patient is alert oriented not in distress. Cardiac: Normal S1 S2 no additional sounds or murmurs chest: Coarse breath sounds abdomen Tenderness in t he RLQ, no reboud tenderness lower extremity: lax calf muscles neuro no focal deficit Internal Med - H&P Results - Labs CBC & Chem 7: 10/06/16 07:50 10/06/16 07:50
[2016-10-06] MEDS: 0.9 % Sodium Chloride 1,000 ML IVC SCH (15:00)
[2016-10-06] MEDS ORDERED: Vancomycin 750 MG in D5% in Water 250 ML IVPB SCH ×2 (15:00→16:00)
--- NOTE | 2016-10-06 15:18 | General Surgery Consult Note ---
Date of Encounter: 10/06/16 Time of Encounter: 15:00 Assessment and Plan (1) RLQ abdominal pain Current Visit: Yes Status: Acute Colitis and mild pneumotosis is seen on the CT limited to the cecum. 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 Since her exam is negative for peritoneal signs, I would recommend continuing antibiotics including coverage for c.diff. No surgery is indicated at this time, but close clinical follow-up in the next few days will determine if her condition is worsening. I will be glad to follow along with you. History of Present Illness Consult date: 10/06/16 Reason for consult: abdominal pain History of present illness: The patient has the main complaint of shortness of breath. When asked further, she also notes right mid abdominal pain. I questioned further, and this pain started about 4 days ago and is localized to the right mid abdomen. She denies nausea or vomitting. She is under treatment for Right upper lobe lung cancer and her last chemotherapy was last Wednesday. She is currently not neutropenic. She describes her abdominal pain as mild to moderate. No diarrhea,or rectal bleeding. No previous colon surgery Past Med Surg Social Fam HX - Past Medical History Medical history: cancer, hypertension, malignancy, other Psychiatric history: no psych history - Past Surgical History Surgical History: non-contributory - Social History Smoking Status: Former smoker Smokeless Tobacco Status: No Alcohol use: none Drug use: none Medications and Allergies Gabapentin [Neurontin] 600 mg PO Q6H 07/16/16 [History] Ropinirole HCl 0.5 mg PO HS 07/16/16 [History] Tramadol HCl 100 mg PO Q6H PRN 07/16/16 [History] Lisinopril 40 mg PO DAILY 08/07/16 [History] Ondansetron HCl [Zofran] 4 mg PO TID PRN #90 tablet 08/19/16 [Rx] Prochlorperazine Maleate [Compazine] 10 mg PO Q8HR PRN #90 tablet 08/19/16 [Rx] Amlodipine [Norvasc] 5 mg PO DAILY 08/31/16 [History] Oxycodone HCl 5 mg PO Q6H PRN 08/31/16 [History] Sennosides/Docusate Sodium [Senna-S Tablet] 1 each PO HS PRN 08/31/16 [History] Cefepime HCl/D5w [Cefepime-Dextrose 1 gm/50 ml] 1 gm IV BID #14 mls 09/04/16 [Rx ] Omeprazole [PriLOSEC] 20 mg PO DAILY@0630 #30 capsule. 09/04/16 [Rx] Vancomycin HCl in Dextrose 5 % [Vancomycin 750 mg/250 ml-D5w] 750 mg IV BID #14 plast..bag 09/04/16 [Rx] Magic Mouthwash [Magic Mouthwash BLM] 10 ml PO QID PRN #240 ml 09/08/16 [Rx] HYDROcodone/Acet 10/325 mg [[place] 10-325 mg] 1 - 2 tab PO Q4HR PRN #100 tab [Rx] Albuterol Sulfate [Albuterol Inhaler] 2 puff IH Q4H PRN #1 inhaler 09/28/16 [Rx] Amoxicillin/Clavulanate [Augmentin] 500 mg PO BIDWM #20 tablet 09/28/16 [Rx] Budesonide/Formoterol 160/4.5 [Symbicort 160/4.5] 2 puff IH BID #1 inhaler 09/28 [Rx] Budesonide/Formoterol 160/4.5 [Symbicort 160/4.5] 2 puff IH BIDR #1 hfa.aer.ad 09/28/16 [Rx] Sodium Polystyrene Sulfonate [Kayexalate] 15 gm PO BID #4 mls 09/30/16 [Rx] Dexamethasone [Decadron] 4 mg PO BID #60 tab 10/01/16 [Rx] Allergies acetaminophen [From [place]] Allergy (Verified 08/31/16 12:00) itching,hives codeine Allergy (Verified 08/31/16 12:00) itching,hives fluticasone [From Advair Diskus] Allergy (Verified 08/31/16 12:00) Difficulty Breathing hydrocodone [From [place]] Allergy (Verified 08/31/16 12:00) itching,hives salmeterol [From Advair Diskus] Allergy (Verified 08/31/16 12:00) Difficulty Breathing Review of Systems All systems PM: reviewed and no additional remarkable complaints except as stated All systems PM: A 10-system review of systems was performed and is negative for pertinent findings except as documented above in the HPI. General Surgery Exam Initial Vital Signs Temp Pulse Resp BP Pulse Ox 97.4 F L 109 20 104/68 90 L 10/06/16 06:34 10/06/16 06:34 10/06/16 06:34 10/06/16 06:34 10/06/16 06:34 - General physical appearance well developed, no distress, chronically ill - ENT normal pinna, normal nares, normal mucosa, no hearing loss, no congestion - Neck no masses, no bruits, trachea midline, no lymphadectomy, no venous distension - Respiratory wheezing: bilateral (worse on the right) - Cardiovascular Cardiovascular exam: Present: RRR, 15, 16 - Abdomen Abdomen general surgery: Present: bowel sounds present, tender Abdominal Tenderness: Present: RLQ (Mild tenderness to palpation , no rebound, no guarding) - Neurologic Present: CN 2-12 grossly intact, normal coordination, normal sensation - Psychiatric Psychiatric general surgery: Present: appropriate, oriented to person, oriented to place, oriented to time, speech is normal, memory intact Exam Initial Vital Signs Temp Pulse Resp BP Pulse Ox 97.4 F L 109 20 104/68 90 L 10/06/16 06:34 10/06/16 06:34 10/06/16 06:34 10/06/16 06:34 10/06/16 06:34 Results - Labs 10/06/16 07:50 10/06/16 07:50 Abnormal lab results Hgb 11.2 g/dL (11.5-15.4) L 10/06/16 07:50 Hct 34.5 % (35.3-44.9) L 10/06/16 07:50 RDW 20.6 % (11.5-14.5) H 10/06/16 07:50 Band Neutrophils % 52.0 % (0-4) H 10/06/16 07:50 Lymphocytes # 0.4 K/mcL (0.6-4.6) L 10/06/16 07:50 Large Platelets Present (Not Present) A 10/06/16 07:50 Sodium 134 mEq/L (136-145) L 10/06/16 07:50 BUN 37 mg/dL (7-20) H 10/06/16 07:50 BUN/Creatinine Ratio 53 (6-26) H 10/06/16 07:50 Glucose 188 mg/dL (70-99) H 10/06/16 07:50 Lactic Acid 3.4 mmol/L (0.5-2.2) H 10/06/16 11:15 Ur Squamous Epith Cells Many per lpf (None-Few) H 10/06/16 09:00 All other labs normal. - Imaging CT scan - abdomen: image reviewed (I personally reviewed the CT. No GI constrast. Mild pneumotosis of the cecum. Mild arden-cecal stranding. No evidence of perforation or abcess) Consult Discharge Plan - Plan Referrals: Jo-Ann Mensah, PHYSICAL AERODYNAMICIST [Primary Care Provider] -
[2016-10-06] MEDS: Meropenem 1,000 MG in 0.9 % Sodium Chloride Mini Bag 100 ML IVPB SCH (15:40)
[2016-10-06] MEDS: Hydrocortisone Sodium Succ 100 MG/2 ML VIAL IVP SCH (15:44)
[2016-10-06] MEDS: *HR* Heparin 5,000 UNIT/ML VIAL SQ SCH (18:11)
--- NOTE | 2016-10-06 20:34 | Electrocardiograph Report ---
[facility] Test Date: 2016-10-06 Pat Name: Elizabeth Guzman Department: 104 Room: 3A22 Gender: F [employer]: : 1935 Requested By: Alisia Srinivasan Order Number: [id number] Reading MD: Lucie Nicole DO Measurements Intervals [place] Rate: 107 P: 39 NE: 124 QRS: 0 QRSD: 85 T: 48 QT: 303 QTc: 366 Interpretive Statements SINUS TACHYCARDIA POSSIBLE LEFT ATRIAL ENLARGEMENT NONSPECIFIC T-WAVE ABNORMALITY ABNORMAL RHYTHM ECG WARNING: DATA QUALITY MAY AFFECT INTERPRETATION Electronically Signed On 10-06-2016 20:32:17 EST by Lucie Nicole DO
[2016-10-06] MEDS: Budesonide/Formoterol 160/4.5 MDI IH SCH (21:13)
[2016-10-07] MEDS: Hydrocortisone Sodium Succ 100 MG/2 ML VIAL IVP SCH ×3 (00:20→19:50)
[2016-10-07] MEDS: Meropenem 1,000 MG in 0.9 % Sodium Chloride Mini Bag 100 ML IVPB SCH ×2 (03:33→17:16)
[2016-10-07] MEDS: 0.9 % Sodium Chloride 1,000 ML IVC SCH ×2 (03:38→17:17)
[2016-10-07 04:09] LABS: Basophils % 0.3 %; Hematocrit 25.2 % (35.3-44.9); Immature Granulocytes % 1.3 % (0-4); Lymphocytes # 0.2 K/mcL (0.6-4.6); Lymphocytes % 6.4 %; Mean Corpuscular HGB Conc 32.9 g/dL (31.6-35.5); Mean Corpuscular Hemoglobin 28.6 pg (28.0-33.3); Mean Corpuscular Volume 86.9 fL (83.0-100.0); Mean Platelet Volume 10.2 fL (9.4-12.4); Monocytes # 0.2 K/mcL (0.0-1.3); Monocytes % 5.1 %; Neutrophils # 2.7 K/mcL (1.6-8.9); Platelet Count 152 K/mcL (140-400); Red Cell Distribution Width 20.1 % (11.5-14.5); Segmented Neutrophils % 86.9 %
[2016-10-07 04:15] LABS: Hemoglobin 8.3 g/dL (11.5-15.4)
[2016-10-07 04:19] LABS: BUN/Creatinine Ratio 48 (6-26); Calcium 9.2 mg/dL (8.6-10.8); Carbon Dioxide 25 mEq/L (19-29); Chloride 106 mEq/L (98-109); Glucose 110 mg/dL (70-99); Magnesium 1.5 mg/dL (1.6-2.6); Osmolality,Calculated 290 (280-300); Potassium 4.1 mEq/L (3.5-4.5); Sodium 138 mEq/L (136-145); eGFR For African Americans > 60 (> 60); eGFR For Non-African Americans > 60 (> 60)
[2016-10-07 04:25] LABS: Blood Urea Nitrogen 22 mg/dL (7-20)
[2016-10-07 04:40] LABS: Platelet Estimate Normal (Normal); Toxic Granulation Present (Not Present)
[2016-10-07] MEDS: *HR* Heparin 5,000 UNIT/ML VIAL SQ SCH (06:42)
--- NOTE | 2016-10-07 07:40 | General Surgery Progress Note ---
<Preston Churchill - Last Filed: 10/07/16 08:33> Date of Encounter: 10/07/16 Time of Encounter: 07:10 - Assessment and Plan (1) RLQ abdominal pain Current Visit: Yes Status: Acute Colitis and mild pneumotosis is seen on the CT limited to the cecum. 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 Patient's pain has acutely worsened today and is now severe. Abdominal and pelvic CT with oral contrast for reassessment of the cecum. (The patient refused the oral contrast with the complaint of "not being able to swallow." Will proceed without contrast. Possible right hemicolectomy today. (2) HCAP (healthcare-associated pneumonia) Current Visit: No Status: Acute The patient is on Meropenem and Vancomycin. Management per the medicine team. (3) Anemia Current Visit: No Status: Acute Hemoglobin dropped from 11.2 yesterday to 8.3 today. Will follow closely. Qualifiers: Anemia type: unspecified type Qualified Code(s): D64.9 - Anemia, unspecified (4) COPD (chronic obstructive pulmonary disease) Current Visit: No Status: Chronic Management per medicine team. Qualifiers: COPD type: chronic bronchitis Chronic bronchitis type: simple Qualified Code(s): J41.0 - Simple chronic bronchitis (5) Diabetes mellitus Current Visit: No Status: Chronic Management per medicine team. Qualifiers: Diabetes mellitus type: type 2 Diabetes mellitus complication status: with neurologic complications Diabetes mellitus complication detail: with polyneuropathy Diabetes mellitus alf insulin use: without alf use Qualified Code(s): E11.42 - Type 2 diabetes mellitus with diabetic polyneuropathy (6) Lung cancer Current Visit: No Status: Chronic Last chemotherapy was last Wednesday Qualifiers: Laterality: right Lung location: upper lobe of lung Qualified Code(s): C34.11 - Malignant neoplasm of upper lobe, right bronchus or lung Subjective Patient reports: still having pain (worsening), shortness of breath, afebrile Narrative: Patient's last bowel movement was 2 days ago, she reports that her pain is worsening and she just wants to get the problem out. She states she has no nausea or vomiting, but does not have any appetite at this time either. Objective Vital Signs - Last 8 Hours Temp Pulse Resp BP Pulse Ox 10/07/16 07:00 98.1 F 101 18 123/69 92 L 10/07/16 04:34 98.3 F 98 20 123/71 93 L 10/07/16 00:30 94 L 10/07/16 00:06 97.5 F L 91 18 106/64 94 L Intake and Output 10/06/16 10/06/16 10/07/16 15:59 23:59 07:59 Intake Total 500 / 600 350 / 350 900 / 900 Output Total 0 / 0 500 / 500 0 / 0 Balance 500 / 600 -150 / -150 900 / 900 Intake: IV Fluids 500 / 500 350 / 350 900 / 900 0.9 % Sodium Chloride 500 500 / 500 ML @ Wide Open IV BOLUS ONE Rx#:[id number] 0.9 % Sodium Chloride 1, 900 / 900 000 ML @ 75 mls/hr IVC . [id number] ABDIRASHID Rx#: [id number] Merrem 1,000 MG In 0.9 % 100 / 100 Sodium Chloride (Mini-Bag +) 100 ML @ 200 mls/hr IVPB Q12H ABDIRASHID Rx#: [id number] Vancocin 750 MG In 250 / 250 Dextrose 5% 250 ML @ 250 mls/hr IVPB Q24H ABDIRASHID Rx#: [id number] Oral 0 / 0 0 / 0 Output: Urine 0 / 0 500 / 500 0 / 0 Other: Meal NPO NPO Percent of Meal Consumed 0% # Voids 1 # Urine Diapers 1 Weight 47.355 kg Blood Glucose* 146 108 Patient Weight 10/07/16 23:59 Weight 47.355 kg - General physical appearance moderate distress, cachectic - Eyes normal ocular movement - ENT normal mucosa - Neck Neck exam: trachea midline - Respiratory other (Chemotherapy port in place on anterior chest wall.) crackles: left (lung base), rales: bilateral - Cardiovascular Cardiovascular exam: Present: RRR - Abdomen Abdomen: Present: bowel sounds present (but diminished), soft Abdominal Tenderness: RLQ (Patient voluntarily guarding area of tenderness) - Integumentary no rash - Neurologic CN 2-12 grossly intact - Musculoskeletal normal posture - Psychiatric oriented to time, oriented to person, oriented to place, speech is normal, memory intact - Labs 10/07/16 03:30 10/07/16 03:30 Diabetes panel 10/07/16 Range/Units 03:30 Sodium 138 (136-145) mEq/L Potassium 4.1 (3.5-4.5) mEq/L Chloride 106 (98-109) mEq/L Carbon Dioxide 25 (19-29) mEq/L BUN 22 H D (7-20) mg/dL Creatinine 0.46 L (0.57-1.11) mg/dL Glucose 110 H (70-99) mg/dL Calcium 9.2 (8.6-10.8) mg/dL Calcium panel 10/07/16 Range/Units 03:30 Calcium 9.2 (8.6-10.8) mg/dL Pituitary panel 10/07/16 Range/Units 03:30 Sodium 138 (136-145) mEq/L Potassium 4.1 (3.5-4.5) mEq/L Chloride 106 (98-109) mEq/L Carbon Dioxide 25 (19-29) mEq/L BUN 22 H D (7-20) mg/dL Creatinine 0.46 L (0.57-1.11) mg/dL Glucose 110 H (70-99) mg/dL Calcium 9.2 (8.6-10.8) mg/dL Adrenal panel 10/07/16 Range/Units 03:30 Sodium 138 (136-145) mEq/L Potassium 4.1 (3.5-4.5) mEq/L Chloride 106 (98-109) mEq/L Carbon Dioxide 25 (19-29) mEq/L BUN 22 H D (7-20) mg/dL Creatinine 0.46 L (0.57-1.11) mg/dL Glucose 110 H (70-99) mg/dL Calcium 9.2 (8.6-10.8) mg/dL Consult Discharge Plan - Plan Referrals: Jo-Ann Mensah, SALES DONOR RECRUITMENT REPRESENTATIVE [Primary Care Provider] - - Attending Attestation I examined this patient and my medical decision-making was reviewed with the JAVA JSF DEVELOPER/PA/Advanced Practice Nurse/Resident Physician. I agree with the documented findings, disposition and treatment plan as described except to the extent set forth below. <Dean Williamson - Last Filed: 10/07/16 14:53> - Assessment and Plan (1) RLQ abdominal pain Current Visit: Yes Status: Acute Objective Vital Signs - Last 8 Hours Temp Pulse Resp BP Pulse Ox 10/07/16 14:00 97.0 F L 112 12 192/113 99 10/07/16 08:07 18 90 L 10/07/16 07:00 98.1 F 101 18 123/69 92 L Intake and Output 10/06/16 10/07/16 10/07/16 23:59 07:59 15:59 Intake Total 350 / 350 900 / 900 0 / 0 Output Total 500 / 500 0 / 0 710 / 710 Balance -150 / -150 900 / 900 -710 / -710 Intake: IV Fluids 350 / 350 900 / 900 0.9 % Sodium Chloride 1, 900 / 900 000 ML @ 75 mls/hr IVC . [id number] ABDIRASHID Rx#: [id number] Merrem 1,000 MG In 0.9 % 100 / 100 Sodium Chloride (Mini-Bag +) 100 ML @ 200 mls/hr IVPB Q12H ABDIRASHID Rx#: [id number] Vancocin 750 MG In 250 / 250 Dextrose 5% 250 ML @ 250 mls/hr IVPB Q24H ABDIRASHID Rx#: [id number] Oral 0 / 0 0 / 0 Output: Urine 500 / 500 0 / 0 Estimated Blood Loss 10 10 Catheter 700 / 700 Other: Meal NPO NPO NPO Percent of Meal Consumed 0% 0% # Voids 1 # Urine Diapers 1 Weight 47.355 kg Blood Glucose* 146 108 Patient Weight 10/07/16 23:59 Weight 47.355 kg - Labs 10/07/16 03:30 10/07/16 03:30 Diabetes panel 10/07/16 Range/Units 03:30 Sodium 138 (136-145) mEq/L Potassium 4.1 (3.5-4.5) mEq/L Chloride 106 (98-109) mEq/L Carbon Dioxide 25 (19-29) mEq/L BUN 22 H D (7-20) mg/dL Creatinine 0.46 L (0.57-1.11) mg/dL Glucose 110 H (70-99) mg/dL Calcium 9.2 (8.6-10.8) mg/dL Calcium panel 10/07/16 Range/Units 03:30 Calcium 9.2 (8.6-10.8) mg/dL Pituitary panel 10/07/16 Range/Units 03:30 Sodium 138 (136-145) mEq/L Potassium 4.1 (3.5-4.5) mEq/L Chloride 106 (98-109) mEq/L Carbon Dioxide 25 (19-29) mEq/L BUN 22 H D (7-20) mg/dL Creatinine 0.46 L (0.57-1.11) mg/dL Glucose 110 H (70-99) mg/dL Calcium 9.2 (8.6-10.8) mg/dL Adrenal panel 10/07/16 Range/Units 03:30 Sodium 138 (136-145) mEq/L Potassium 4.1 (3.5-4.5) mEq/L Chloride 106 (98-109) mEq/L Carbon Dioxide 25 (19-29) mEq/L BUN 22 H D (7-20) mg/dL Creatinine 0.46 L (0.57-1.11) mg/dL Glucose 110 H (70-99) mg/dL Calcium 9.2 (8.6-10.8) mg/dL - Attending Attestation Dean Williamson MD FACS
[2016-10-07] MEDS ORDERED: Magnesium Sulfate 2 GM in D5% in Water 100 ML IVPB ONE (07:55)
--- NOTE | 2016-10-07 08:05 | Internal Med Progress Note ---
Date of Encounter: 10/07/16 Time of Encounter: 08:03 - Assessment and plan (1) Colitis Current Visit: Yes Status: Acute Assessment and plan: Patient admitted with acute right lower quadrant abdominal pain. CT abdomen/ pelvis shows possible cecal colitis with appendiceal wall thickening. Surgery consult appreciated. Continue empiric antibiotics-IV meropenem. Plan for possible right hemicolectomy today. Repeat CT abdomen ordered. Continue to keep nothing by mouth with IV hydration. Repeat lactic acid level. Monitor electrolytes and vitals closely. Pain control with when necessary IV morphine. High risk patient. (2) Pneumonia Current Visit: Yes Status: Ruled-out Assessment and plan: Patient has been started on broad-spectrum IV antibiotics-vancomycin and meropenem for intra-abdominal pathology and possible pneumonia. Review of previous chest imaging shows that she was recently admitted for pneumonia and CT changes are likely related to recent pneumonia. Patient does not clinically appear septic from pneumonia. Consider holding vancomycin. Continue supplemental oxygen as needed and IV hydration. Qualifiers: Pneumonia type: due to unspecified organism Laterality: left Lung location: unspecified part of lung Qualified Code(s): J18.9 - Pneumonia, unspecified organism (3) Chronic respiratory failure with hypoxia Current Visit: Yes Status: Chronic Assessment and plan: Due to COPD. Continue bronchodilators, supplemental oxygen, inhaled corticosteroids. Not noted to be in acute exacerbation of COPD. (4) Anemia Current Visit: Yes Status: Chronic Assessment and plan: Patient is noted to have acute on chronic anemia with pancytopenia, probably related to recent chemotherapy and radiation for lung cancer. Continue to monitor for now. Goal to transfuse if hemoglobin less than 8. 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 Qualifiers: Diabetes mellitus type: type 2 Diabetes mellitus complication status: with neurologic complications Diabetes mellitus complication detail: with polyneuropathy Diabetes mellitus senior living insulin use: without salvage determiner use Qualified Code(s): E11.42 - Type 2 diabetes mellitus with diabetic polyneuropathy (8) GERD (gastroesophageal reflux disease) Current Visit: Yes Status: Chronic Qualifiers: Esophagitis presence: without esophagitis Qualified Code(s): K21.9 - Gastro -esophageal reflux disease without esophagitis (9) HTN (hypertension) Current Visit: Yes Status: Chronic Qualifiers: Hypertension type: essential hypertension Qualified Code(s): I10 - Essential (primary) hypertension (10) Lung cancer Current Visit: Yes Status: Chronic Assessment and plan: Follows with oncology as outpatient, completed first cycle of chemoradiation therapy. 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 Qualifiers: Laterality: right Lung location: upper lobe of lung Qualified Code(s): C34.11 - Malignant neoplasm of upper lobe, right bronchus or lung - Subjective Interval history: Reports pain in right lower abdomen. No nausea, vomiting, diarrhea. Last bowel movement 2 days back. No fever or chills. - Constitutional Vitals: Temp Pulse Resp BP Pulse Ox 98.1 F 101 18 123/69 92 L 10/07/16 07:00 10/07/16 07:00 10/07/16 07:00 10/07/16 07:00 10/07/16 07:00 General appearance: Present: cachectic, mild distress, A&O X 3, answers questions appropriately - Head Head exam: Present: atraumatic, normocephalic - Neck Neck exam general surgery: Present: supple, trachea midline. Absent: lymphadenopathy - Respiratory Respiratory exam: Present: rales (Bilateral coarse breath sounds, left basal crackles). Absent: accessory muscle use, rhonchi, wheezes - Cardiovascular Cardiovascular exam: Present: RRR, +S1, +S2. Absent: diastolic murmur, gallop, rubs, systolic murmur - GI/Abdominal GI/Abdominal exam: Present: diminished bowel sounds, soft (Tenderness and right lower quadrant, rebound tenderness noted. No rigidity ), no peritoneal signs. Absent: distended, tenderness - Extremities Exam Extremities exam: Present: warm, radial pulses palpable and symetrical. Absent : calf tenderness, cyanotic, pedal edema - Neurological Exam Neurological exam: Present: CN II-XII intact, oriented X3, no focal deficits. Absent: pronater drift, facial droop, speech deficit - Skin Skin exam: Present: dry, intact Internal Medicine: Result - Labs CBC & Chem 7: 10/07/16 03:30 10/07/16 03:30 Labs: Short CBC 10/07/16 Range/Units 03:30 WBC 3.1 L (4.3-11.1) K/mcL Hgb 8.3 L D (11.5-15.4) g/dL Hct 25.2 L (35.3-44.9) % Plt Count 152 (140-400) K/mcL Neutrophils # 2.7 (1.6-8.9) K/mcL BMP 10/07/16 03:30 Sodium 138 Potassium 4.1 Chloride 106 Carbon Dioxide 25 BUN 22 H D Creatinine 0.46 L Glucose 110 H Calcium 9.2 Consult Discharge Plan - Plan Referrals: Jo-Ann Mensah CONTINUOUS DRIER OPERATOR [Primary Care Provider] -
[2016-10-07] MEDS: Budesonide/Formoterol 160/4.5 MDI IH SCH ×2 (08:07→19:37)
[2016-10-07] MEDS: Pantoprazole 40 MG VIAL IVP SCH (08:19)
[2016-10-07] MEDS: *HR* Morphine 2 MG/ML SYRINGE IVP PRN (08:20)
[2016-10-07] MEDS ORDERED: Aminoglycoside Consult 1 EACH MC ONE (08:53)
[2016-10-07] MEDS ORDERED: *HR* Propofol 200 MG/20 ML VIAL IVP ONE (11:03)
[2016-10-07] MEDS ORDERED: *HR* Remifentanil 2 MG VIAL IVP ONE (11:03)
--- NOTE | 2016-10-07 11:06 | Event Note ---
Date of Encounter: 10/07/16 Time of Encounter: 11:00 I reexamined the patient this morning at 7 AM. Her physical examination had worsened. I scheduled a CAT scan. I saw the patient again at 11 AM in radiology suite and her abdominal examination had worsened again she now had rebound tenderness in was in constant pain. The pain is still localized in the right midabdomen. I canceled CAT scan. She has clinical indications of an acute abdomen and will require immediate exploratory laparotomy. I suspect she will require right hemicolectomy. I discussed this with her and the patient is wanting to proceed as quickly as possible due to the severe pain. She understands the risks and benefits and we will proceed to the operating room on an emergent basis.
[2016-10-07] MEDS ORDERED: CefOXitin 1,000 MG VIAL ONE (11:11)
--- NOTE | 2016-10-07 11:30 | Anesthesia Evaluation PreOp ---
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%), Other ( lung CA RUL, with HCAP, requiring 3LNC to maintain sat >92$) RACE RELATIONS ADVISER History: Denies Any Significant HX Other Medical History: GERD Anesthesia History: No Prior Anesthetic Complications, Past Anesthesia ( kyphoplasty t3-7) Alcohol Use: none Drug use: none Medications and Allergies Gabapentin [Neurontin] 600 mg PO Q6H 07/16/16 [History] Ropinirole HCl 0.5 mg PO HS 07/16/16 [History] Tramadol HCl 100 mg PO Q6H PRN 07/16/16 [History] Lisinopril 40 mg PO DAILY 08/07/16 [History] Ondansetron HCl [Zofran] 4 mg PO TID PRN #90 tablet 08/19/16 [Rx] Prochlorperazine Maleate [Compazine] 10 mg PO Q8HR PRN #90 tablet 08/19/16 [Rx] Amlodipine [Norvasc] 5 mg PO DAILY 08/31/16 [History] Oxycodone HCl 5 mg PO Q6H PRN 08/31/16 [History] Sennosides/Docusate Sodium [Senna-S Tablet] 1 each PO HS PRN 08/31/16 [History] Cefepime HCl/D5w [Cefepime-Dextrose 1 gm/50 ml] 1 gm IV BID #14 mls 09/04/16 [Rx ] Omeprazole [PriLOSEC] 20 mg PO DAILY@0630 #30 capsule. 09/04/16 [Rx] Vancomycin HCl in Dextrose 5 % [Vancomycin 750 mg/250 ml-D5w] 750 mg IV BID #14 plast..bag 09/04/16 [Rx] Magic Mouthwash [Magic Mouthwash BLM] 10 ml PO QID PRN #240 ml 09/08/16 [Rx] HYDROcodone/Acet 10/325 mg [Parkman 10-325 mg] 1 - 2 tab PO Q4HR PRN #100 tab [Rx] Albuterol Sulfate [Albuterol Inhaler] 2 puff IH Q4H PRN #1 inhaler 09/28/16 [Rx] Amoxicillin/Clavulanate [Augmentin] 500 mg PO BIDWM #20 tablet 09/28/16 [Rx] Budesonide/Formoterol 160/4.5 [Symbicort 160/4.5] 2 puff IH BID #1 inhaler 09/28 [Rx] Budesonide/Formoterol 160/4.5 [Symbicort 160/4.5] 2 puff IH BIDR #1 hfa.aer.ad 09/28/16 [Rx] Sodium Polystyrene Sulfonate [Kayexalate] 15 gm PO BID #4 mls 09/30/16 [Rx] Dexamethasone [Decadron] 4 mg PO BID #60 tab 10/01/16 [Rx] Allergies acetaminophen [From Parkman] Allergy (Verified 08/31/16 12:00) itching,hives codeine Allergy (Verified 08/31/16 12:00) itching,hives fluticasone [From Advair Diskus] Allergy (Verified 08/31/16 12:00) Difficulty Breathing hydrocodone [From Parkman] Allergy (Verified 08/31/16 12:00) itching,hives salmeterol [From Advair Diskus] Allergy (Verified 08/31/16 12:00) Difficulty Breathing - Meds/Allergy Pre-op Review Medications Reviewed: Yes Allergies Reviewed: Yes Beta Blockers on Current Med List: No Anesthesia Results - Labs 10/07/16 03:30 10/07/16 03:30 - Imaging EKG: report reviewed (st on 10/06) Anesthesia Exam Vital Signs/O2 Sat/Glucose, Most Current Resp Pulse Ox 10/07/16 08:07 18 90 L Height: 1.52 Weight: 47 NPO (# of Hours): >8 - HEENT Pupil (Motor): Pupils equal, EOMI Mallampati: III Teeth: Edentulous Oral Opening: Greater than 3 - RACE RELATIONS ADVISER LOC: Oriented (person, place, time, situation) RACE RELATIONS ADVISER Motor: Deficit RUE, Deficit LUE, Deficit RLE, Deficit LLE, Deficit Face RACE RELATIONS ADVISER Sensory: Deficit: RUE, LUE, RLE, LLE, Face - Cardiac Rhythm: Regular Murmur: None - Pulmonary Breath Sounds: bilateral Rhonchi Respiratory Effort: Symmetrical Anesthesia Assess/Plan ASA Score: 5, E Modified Valentin Scale for Level of Consciousness: Cooperative, oriented, and tranquil Anesthetic Plan: General Monitoring Plan: Standard Monitors Recovery Plan: PACU
[2016-10-07] MEDS ORDERED: *HR* Rocuronium Bromide 50 MG/5 ML VIAL ONE (11:52)
[2016-10-07] MEDS ORDERED: *HR* HYDROmorphone 2 MG/ML SYRINGE ONE (12:14)
[2016-10-07] MEDS ORDERED: Esmolol 100 MG/10 ML VIAL IVP ONE (12:20)
--- NOTE | 2016-10-07 12:52 | Operative Note ---
Date of procedure: 10/07/16 Pre-op diagnosis: Acute abdomen, abnormal CAT scan right colon Post-op diagnosis: other (Ischemic inflammatory mass of the cecum without necrosis) Procedure: Right hemicolectomy Anesthesia: DARIN Surgeon: Dean Williamson Estimated blood loss (cc): 10 Condition: stable Disposition: ICU Procedure in Detail: After informed consent the patient was taken to the operating room on an emergent basis. On reevaluation she was complaining bitterly of unrelenting abdominal pain localized to the right mid abdomen in the area of CAT scan abnormality and pneumatosis of the colon. Findings were consistent with bowel necrosis. The patient was taken to major operative suite placed in supine position and adequate general anesthetic. Jackson catheter was placed. The abdomen was prepped and draped in sterile fashion utilizing ChloraPrep standard draping techniques. Timeout was taken patient was identified. I made a vertical midline incision and into the abdomen. There were some mild adhesions to the anterior abdominal wall these were divided with electrocautery. The right colon was mobilized. There was inflammatory mass in the cecum that correlated with CAT scan findings of pneumatosis. There was not full-thickness necrosis of the bowel. Because of the patient's tremendous symptoms are decided to resect the right colon. I divided the small bowel 8 cm possible to the ileocecal valve. I divided the transverse colon 5 cm to the right side of the middle colic artery. I mobilized the right colon from its lateral peritoneal attachments. I divided the mesentery with clamps and hemostatic ligatures. The colon specimen was removed. I performed a primary anastomosis using the Derifield technique using RAMSES to create the anastomosis and TA 60 to close the enterotomy. The anastomosis was circumferentially reinforced with 3- 0 silk seromuscular stitches. The mesenteric opening was closed with interrupted [id number] silk stitches. This gave an excellent technical result and there was no spillage of bowel contents whatsoever. There was no evidence of full-thickness necrosis. I irrigated with copious amounts antibiotic containing solution and closed midline with looped 0 PDS. The skin was closed with interrupted Vicryl and skin clips. At the and the procedure open specimen. The mucosa of the colon appeared to be ischemic and there were visible areas of pneumatosis. Margins were viable. Because of the patient's treatment for COPD and lung cancer as well as decreased FEV1 patient was left intubated and taken to the intensive care unit for further therapy
[2016-10-07] MEDS ORDERED: *HR* Succinylcholine 200 MG/10 ML VIAL IVP ONE (13:13)
[2016-10-07] MEDS ORDERED: *HR* Phenylephrine 10 MG/ML VIAL ONE (13:13)
[2016-10-07] MEDS ORDERED: Lidocaine -MPF 2% 2 ML VIAL ONE (13:13)
[2016-10-07] MEDS ORDERED: Lidocaine -MPF 4% 5 ML AMPUL ONE (13:13)
[2016-10-07] MEDS ORDERED: Lacri-Lube 3.5 GM TUBE BOTH EYES PRN (13:55)
[2016-10-07 14:04] LABS: ABG Base Excess -2.1 mEq/L (-2.0 to 3.0); ABG HCO3 25.3 mEQ/L (21-27); ABG Oxygen Saturation 100 % (95-98); ABG PCO2 55 mmHg (35-45); ABG PH 7.27 pH Units (7.32-7.45); ABG PO2 373 mmHg (85-104)
[2016-10-07 14:05] LABS: Blood Gas FiO2 100 %
--- NOTE | 2016-10-07 14:10 | Pulmonology Consult Note ---
<Nate Marshall - Last Filed: 10/07/16 17:13> Date of Encounter: 10/07/16 Time of Encounter: 14:08 Assessment and Plan (1) Chronic respiratory failure with hypoxia Current Visit: Yes Status: Chronic Patient has known history of COPD requiring 4 L at baseline at home. Admitted with concerns for HCAP, chest x-rays reviewed from current admission compared to x-ray from June without significant change. Patient was intubated for abdominal procedure. Difficulty with CPAP trial requiring re-sedation in the ICU. Initial ABG collected in the ICU demonstrates pH 7.27, PCO2 of 55, PO2 373, bicarbonate 25.3, vent adjustments made. Vitals temperature 97.0, heart rate 120, respirations 20, blood pressure 170/89 , 93% on mechanical vent. Tachycardia and hypertension improved after initiation of sedation. Likely secondary to postsurgical symptoms and endotracheal intubation. Plan: - Reattempts CPAP trial in the morning. - Continue mechanical ventilation - Dual nebs ordered - Continue vancomycin and Flagyl - Levaquin discontinued - Continue IV steroids. (2) COPD (chronic obstructive pulmonary disease) Current Visit: Yes Status: Chronic History of COPD with baseline 4 L oxygen at home. She did not require increased oxygen demand during her admission prior to her procedure. Chronic respiratory disease likely to complicate extubation from mechanical ventilation. Failed initial CPAP trial will attempt in the morning. Plan: - Continue current medications, steroids and breathing treatments as listed above. - We will resume home inhalers after extubation. Qualifiers: COPD type: chronic bronchitis Chronic bronchitis type: simple Qualified Code(s): J41.0 - Simple chronic bronchitis (3) Pneumonia Current Visit: Yes Status: Ruled-out Patient admitted with HCAP concerns. CXR reviewed. Immunosuppressed with hx of lung cancer undergoing chemo treatment. Current low suspicion for pneumonia. Plan: - Continue antibiotics as listed above. Qualifiers: Pneumonia type: due to unspecified organism Laterality: left Lung location: unspecified part of lung Qualified Code(s): J18.9 - Pneumonia, unspecified organism (4) Necrosis of colon Current Visit: Yes Status: Acute Patient went under emergent right colectomy secondary to full-thickness necrosis of the colon around the cecum. She was stabilized and continued on mechanical ventilation and transferred to the ICU for continued therapy. Currently continued on antibiotic coverage including vancomycin and Flagyl. Pulmonary critical care consultation for mechanical vent and respiratory disease management. 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 Currently undergoing chemotherapy. Qualifiers: Laterality: right Lung location: upper lobe of lung Qualified Code(s): C34.11 - Malignant neoplasm of upper lobe, right bronchus or lung (6) DVT prophylaxis Current Visit: No Status: Acute Currently on heparin drip post ischemic bowel findings. History of Present Illness Consult date: 10/07/16 Requesting physician: Dean Williamson Reason for consult: other Chief complaint: Acute respiratory failure after surgery. History of present illness: Ms. Guzman is a 80 year old female with multiple medical problems including lung cancer on chemotherapy and radiation, COPD 4L oxygen at home, HTN was admitted to [facility] on 10/06/16 with abdominal pain with associated pneumonitis in the cecal area, concerns for HCAP. General surgery was consult and follow the patient overnight, she progressively declined with worsening abdominal symptoms and was subsequently taken to the OR and underwent immediate exploratory laparotomy resulting in right hemicolectomy after findings of full-thickness necrosis of the bowel. With her severe lung disease and concern for HCAP she was transferred to the ICU for continued therapy. In the ICU she was found to be tachycardic and hypertensive likely responsive to operative intervention and endotracheal intubation. She was sedated with propofol and fentanyl resolving her hypertension and tachycardia. Later on the evening CPAP trial was attempted for which she failed and subsequently re- sedated. Past Med Surg Social Fam HX - Past Medical History Medical history: cancer, hypertension, malignancy, other Psychiatric history: no psych history - Past Surgical History Surgical History: non-contributory - Social History Smoking Status: Former smoker Smokeless Tobacco Status: No Alcohol use: none Drug use: none Medications and Allergies Gabapentin [Neurontin] 600 mg PO Q6H 07/16/16 [History] Ropinirole HCl 0.5 mg PO HS 07/16/16 [History] Tramadol HCl 100 mg PO Q6H PRN 07/16/16 [History] Lisinopril 40 mg PO DAILY 08/07/16 [History] Ondansetron HCl [Zofran] 4 mg PO TID PRN #90 tablet 08/19/16 [Rx] Prochlorperazine Maleate [Compazine] 10 mg PO Q8HR PRN #90 tablet 08/19/16 [Rx] Amlodipine [Norvasc] 5 mg PO DAILY 08/31/16 [History] Oxycodone HCl 5 mg PO Q6H PRN 08/31/16 [History] Sennosides/Docusate Sodium [Senna-S Tablet] 1 each PO HS PRN 08/31/16 [History] Cefepime HCl/D5w [Cefepime-Dextrose 1 gm/50 ml] 1 gm IV BID #14 mls 09/04/16 [Rx ] Omeprazole [PriLOSEC] 20 mg PO DAILY@0630 #30 capsule. 09/04/16 [Rx] Vancomycin HCl in Dextrose 5 % [Vancomycin 750 mg/250 ml-D5w] 750 mg IV BID #14 plast..bag 09/04/16 [Rx] Magic Mouthwash [Magic Mouthwash BLM] 10 ml PO QID PRN #240 ml 09/08/16 [Rx] HYDROcodone/Acet 10/325 mg [[place] 10-325 mg] 1 - 2 tab PO Q4HR PRN #100 tab [Rx] Albuterol Sulfate [Albuterol Inhaler] 2 puff IH Q4H PRN #1 inhaler 09/28/16 [Rx] Amoxicillin/Clavulanate [Augmentin] 500 mg PO BIDWM #20 tablet 09/28/16 [Rx] Budesonide/Formoterol 160/4.5 [Symbicort 160/4.5] 2 puff IH BID #1 inhaler 09/28 [Rx] Budesonide/Formoterol 160/4.5 [Symbicort 160/4.5] 2 puff IH BIDR #1 hfa.aer.ad 09/28/16 [Rx] Sodium Polystyrene Sulfonate [Kayexalate] 15 gm PO BID #4 mls 09/30/16 [Rx] Dexamethasone [Decadron] 4 mg PO BID #60 tab 10/01/16 [Rx] Allergies acetaminophen [From [place]] Allergy (Verified 08/31/16 12:00) itching,hives codeine Allergy (Verified 08/31/16 12:00) itching,hives fluticasone [From Advair Diskus] Allergy (Verified 08/31/16 12:00) Difficulty Breathing hydrocodone [From [place]] Allergy (Verified 08/31/16 12:00) itching,hives salmeterol [From Advair Diskus] Allergy (Verified 08/31/16 12:00) Difficulty Breathing ROS unobtainable: due to endotracheal tube All Systems: A 10-system review of systems was performed and is negative for pertinent findings except as documented above in the HPI. Physical Examination Gen. FEN 80-year-old female currently intubated with endotracheal tube requiring mechanical ventilation and sedation. HEENT: Normocephalic, atraumatic, pupils are equal and reactive, oral mucosa is moist neck is supple trachea midline. Chest: Symmetric bilateral correlating with respiratory movement. Respiratory: Diffuse rhonchi appreciated in all lung cisse. Cardiac: Tachycardic, radial posterior tibial pulses were 2+ bilateral. Capillary refill is appropriate bilateral. Abdomen: Soft, midline incision is dressed without any signs of drainage. Hypoactive bowel sounds Extremities: Symmetric bilaterally without signs of erythema or edema Results - Laboratory Findings CBC and BMP: 10/07/16 16:45 10/07/16 03:30 ABG ABG pH 7.27 pH Units (7.32-7.45) L 10/07/16 13:55 ABG pCO2 55 mmHg (35-45) H 10/07/16 13:55 ABG pO2 373 mmHg (85-104) H 10/07/16 13:55 ABG O2 Saturation 100 % (95-98) H 10/07/16 13:55 Abnormal lab findings: Abnormal lab results WBC 3.1 K/mcL (4.3-11.1) L 10/07/16 03:30 RBC 2.90 M/mcL (3.82-4.97) L 10/07/16 03:30 Hgb 8.3 g/dL (11.5-15.4) L D 10/07/16 03:30 Hct 25.2 % (35.3-44.9) L 10/07/16 03:30 RDW 20.1 % (11.5-14.5) H 10/07/16 03:30 Band Neutrophils % 52.0 % (0-4) H 10/06/16 07:50 Lymphocytes # 0.2 K/mcL (0.6-4.6) L 10/07/16 03:30 Toxic Granulation Present (Not Present) A 10/07/16 03:30 Large Platelets Present (Not Present) A 10/06/16 07:50 ABG pH 7.27 pH Units (7.32-7.45) L 10/07/16 13:55 ABG pCO2 55 mmHg (35-45) H 10/07/16 13:55 ABG pO2 373 mmHg (85-104) H 10/07/16 13:55 ABG Total CO2 27.0 mEq/L (20-26) H 10/07/16 13:55 ABG O2 Saturation 100 % (95-98) H 10/07/16 13:55 ABG Base Excess -2.1 mEq/L (-2.0 to 3.0) L 10/07/16 13:55 BUN 22 mg/dL (7-20) H D 10/07/16 03:30 Creatinine 0.46 mg/dL (0.57-1.11) L 10/07/16 03:30 BUN/Creatinine Ratio 48 (6-26) H 10/07/16 03:30 Glucose 110 mg/dL (70-99) H 10/07/16 03:30 POC Glucose 151 (58-89) H 10/07/16 13:07 Magnesium 1.5 mg/dL (1.6-2.6) L 10/07/16 03:30 Ur Squamous Epith Cells Many per lpf (None-Few) H 10/06/16 09:00 - Clinical Findings Intake & Output: Intake & Output 10/06/16 10/07/16 10/07/16 23:59 07:59 15:59 Intake Total 350 / 350 900 / 900 0 / 0 Output Total 500 / 500 0 / 0 10 / 10 Balance -150 / -150 900 / 900 -10 / -10 Weight 47.355 kg Consult Discharge Plan - Plan Referrals: Jo-Ann Mensah, [employer] [Primary Care Provider] - <Anisha Tom - Last Filed: 10/07/16 18:13> All Systems: A 10-system review of systems was performed and is negative for pertinent findings except as documented above in the HPI. Physical Examination Vital Signs: Vital Signs, Last 4 Hours Pulse Resp BP Pulse Ox 10/07/16 17:31 20 93 L 10/07/16 16:13 20 93 L 10/07/16 16:00 120 16 170/89 96 10/07/16 15:00 100 13 123/79 93 L Ventilator Settings Ventilator Settings: Ventilator Settings, Last 8 Hours Ventilator Mode A/C Ventilator Mode CPAP Ventilator Mode CPAP Ventilator Mode A/C Ventilator Mode A/C Ventilator Mode A/C Ventilator Mode A/C Ventilator Tidal Volume 450 Setting Ventilator Tidal Volume 450 Setting Ventilator Tidal Volume 450 Setting Ventilator Tidal Volume 450 Setting Ventilator Tidal Volume 450 Setting Ventilator Tidal Volume 450 Setting Ventilator Respiratory Rate 12 Setting Ventilator Respiratory Rate 12 Setting Ventilator Respiratory Rate 12 Setting Ventilator Respiratory Rate 12 Setting Ventilator Respiratory Rate 14 Setting Ventilator Respiratory Rate 12 Setting Actual Respiratory Rate 14 Actual Respiratory Rate 22 Actual Respiratory Rate 20 Actual Respiratory Rate 12 Actual Respiratory Rate 12 Actual Respiratory Rate 12 Positive End Expiratory 5 Pressure Positive End Expiratory 5 Pressure Positive End Expiratory 5 Pressure Positive End Expiratory 5 Pressure Positive End Expiratory 5 Pressure Positive End Expiratory 5 Pressure Positive End Expiratory 5 Pressure Peak Inspiratory Airway 27 Pressure Peak Inspiratory Airway 8.2 Pressure Peak Inspiratory Airway 8 Pressure Peak Inspiratory Airway 18 Pressure Peak Inspiratory Airway 22 Pressure Peak Inspiratory Airway 19 Pressure Results - Laboratory Findings CBC and BMP: 10/07/16 16:45 10/07/16 03:30 ABG ABG pH 7.27 pH Units (7.32-7.45) L 10/07/16 13:55 ABG pCO2 55 mmHg (35-45) H 10/07/16 13:55 ABG pO2 373 mmHg (85-104) H 10/07/16 13:55 ABG O2 Saturation 100 % (95-98) H 10/07/16 13:55 PT/INR, D-dimer PT 11.7 Seconds (9.4-12.1) 10/07/16 16:45 Abnormal lab findings: Abnormal lab results RBC 3.59 M/mcL (3.82-4.97) L 10/07/16 16:45 Hgb 10.1 g/dL (11.5-15.4) L D 10/07/16 16:45 Hct 31.6 % (35.3-44.9) L 10/07/16 16:45 RDW 20.2 % (11.5-14.5) H 10/07/16 16:45 Band Neutrophils % 52.0 % (0-4) H 10/06/16 07:50 Lymphocytes # 0.2 K/mcL (0.6-4.6) L 10/07/16 03:30 Toxic Granulation Present (Not Present) A 10/07/16 03:30 Large Platelets Present (Not Present) A 10/06/16 07:50 ABG pH 7.27 pH Units (7.32-7.45) L 10/07/16 13:55 ABG pCO2 55 mmHg (35-45) H 10/07/16 13:55 ABG pO2 373 mmHg (85-104) H 10/07/16 13:55 ABG Total CO2 27.0 mEq/L (20-26) H 10/07/16 13:55 ABG O2 Saturation 100 % (95-98) H 10/07/16 13:55 ABG Base Excess -2.1 mEq/L (-2.0 to 3.0) L 10/07/16 13:55 BUN 22 mg/dL (7-20) H D 10/07/16 03:30 Creatinine 0.46 mg/dL (0.57-1.11) L 10/07/16 03:30 BUN/Creatinine Ratio 48 (6-26) H 10/07/16 03:30 Glucose 110 mg/dL (70-99) H 10/07/16 03:30 POC Glucose 151 (58-89) H 10/07/16 13:07 Magnesium 1.5 mg/dL (1.6-2.6) L 10/07/16 03:30 Ur Squamous Epith Cells Many per lpf (None-Few) H 10/06/16 09:00 - Clinical Findings Intake & Output: Intake & Output 10/07/16 10/07/16 10/07/16 07:59 15:59 23:59 Intake Total 1000 / 1000 1000 / 1000 Output Total 0 / 0 710 / 710 Balance 1000 / 1000 290 / 290 Weight 47.355 kg - Attending Attestation I examined this patient and my medical decision-making was reviewed with the ALLIANCE MANAGER/PA/Advanced Practice Nurse/Resident Physician. I agree with the documented findings, disposition and treatment plan as described except to the extent set forth below. Patient seen and examined. Labs, radiology, chart personally reviewed. Agree with resident's history and physical, assessment, plan with following comments: PROJECT HIRE: Patient follows simple commands, Pulmonary: Patient has significant pulmonary disease and would be very careful with extubation. Discussed with surgeon and there is no objection if she passed her CPAP trial we will consider extubation. I am still very careful since she has abdominal surgery the complication in this patient could be serious with atelectasis and even pneumonia. I suspect she has chronic bronchitis since chest x-ray does not have any significant consolidation. Change vent setting to VC plus. Cardiovascular: stable GI: Nutrition per dietary and GI prophylaxis per routine. Patient had abdominal surgery and discussed with the surgeon which is possible ischemic in nature. Typically patient will need TPN. Heme: DVT prophylaxis per routine. Since surgeon increased with anticoagulation will start low-dose heparin without any bolus due to risk of bleeding. ID: Continue antibiotics and plan to de-escalation Renal; urine out put and renal funtion reviewed Endorcine: blood glucose is monitored Lines: all lines checked and no evidence of infections Skin: skin care to prevent pressure ulcers per nursing routine care I suspect overall prognosis for this patient is poor. I spent 40 min of Critical Care time with this patient. It involved decision making of high complexity to assess, manipulate, and support vital organ system failure and/or to prevent further life threatening deterioration of the patient' s condition. The time involved in the performance of separately reportable procedures was not counted toward critical care time.
[2016-10-07] MEDS: FentaNYL (PF) 1,000 MCG in 0.9 % Sodium Chloride 80 ML IVC SCH (15:00)
[2016-10-07] MEDS ORDERED: *HR* Heparin 5,000 UNIT/ML VIAL IVP PRN ×2 (15:50)
[2016-10-07] MEDS: Ipratropium/Albuterol Neb 3 ML IH SCH ×3 (16:05→23:23)
[2016-10-07] MEDS: MetroNIDAZOLE 250 MG/50 ML 250 MG/50 ML BAG IVPB SCH ×2 (16:55→23:09)
[2016-10-07 16:59] LABS: Hematocrit 31.6 % (35.3-44.9); Mean Corpuscular Hemoglobin 28.1 pg (28.0-33.3); Mean Platelet Volume 9.8 fL (9.4-12.4); Platelet Count 181 K/mcL (140-400); Red Blood Count 3.59 M/mcL (3.82-4.97); Red Cell Distribution Width 20.2 % (11.5-14.5)
[2016-10-07 17:01] LABS: Hemoglobin 10.1 g/dL (11.5-15.4)
[2016-10-07 17:02] LABS: INR 1.1; Prothrombin Time 11.7 Seconds (9.4-12.1)
[2016-10-07 17:05] LABS: Activated Partial Thrombo Time 26.5 Seconds (26.0-36.0)
[2016-10-07] MEDS: Lacri-Lube 3.5 GM TUBE BOTH EYES SCH ×3 (17:17→23:10)
[2016-10-07] MEDS: Heparin 25,000 UNIT/500 ML D5W 25,000 UNIT/500 ML MLS IVC SCH (17:37)
--- NOTE | 2016-10-07 17:37 | Oncology Inp Consult Note ---
Date of Encounter: 10/08/16 Time of Encounter: 17:00 Assessment and Plan (1) Lung cancer Status: Chronic Assessment and plan: Patient with locally advanced lung cancer status post chemoradiation therapy recently completed 2 weeks ago, with history of COPD with presented with abdominal symptoms suggestive off acute abdomen status post laparotomy and right hemicolectomy. She is currently recovering, postop status intubated sedated. We will follow up on pathology, reschedule patient's appointments. Patient's daughter had kept us informed about recent status/surgery. Qualifiers: Laterality: right Lung location: upper lobe of lung Qualified Code(s): C34.11 - Malignant neoplasm of upper lobe, right bronchus or lung - Data of Consult Requesting Physician: Magy Arzate MD Primary Care Provider: Jo-Ann Mensah CNP - Consult Narrative Reason for consult: lung cancer, abd surgery History of present illness: Ms. Guzman is a 80 year old female medical history significant for COPD on home oxygen, history of lung cancer recently started and completed concurrent chemoradiation therapy with last dose of chemotherapy with carboplatin and Taxol a week or so ago, patient was hospitalized during treatment but shortness of breath and pain, pneumonia. She has had complaints of abdominal pain as result afraid she underwent a CT imaging study that showed pneumatosis a CT scan of the abdomen with contrast to evaluate for mesenteric ischemia did not show any evidence of thrombus or ischemia, showed slight improvement in inflammatory changes in the right lower quadrant adjacent to the cecum. Worsening clinical symptoms with abdominal pain patient was taken to the operating room for exp laparotomy and right hemicolectomy. Patient is recovering in the intensive care unit she is status post intubation. Past Med Surg Social Fam HX - Past Medical History Medical history: cancer, hypertension, malignancy, other Psychiatric history: no psych history - Past Surgical History Surgical History: non-contributory - Social History Smoking Status: Former smoker Smokeless Tobacco Status: No Alcohol use: none Drug use: none Medications and Allergies Gabapentin [Neurontin] 600 mg PO Q6H 07/16/16 [History] Ropinirole HCl 0.5 mg PO HS 07/16/16 [History] Tramadol HCl 100 mg PO Q6H PRN 07/16/16 [History] Lisinopril 40 mg PO DAILY 08/07/16 [History] Ondansetron HCl [Zofran] 4 mg PO TID PRN #90 tablet 08/19/16 [Rx] Prochlorperazine Maleate [Compazine] 10 mg PO Q8HR PRN #90 tablet 08/19/16 [Rx] Amlodipine [Norvasc] 5 mg PO DAILY 08/31/16 [History] Oxycodone HCl 5 mg PO Q6H PRN 08/31/16 [History] Sennosides/Docusate Sodium [Senna-S Tablet] 1 each PO HS PRN 08/31/16 [History] Cefepime HCl/D5w [Cefepime-Dextrose 1 gm/50 ml] 1 gm IV BID #14 mls 09/04/16 [Rx ] Omeprazole [PriLOSEC] 20 mg PO DAILY@0630 #30 capsule. 09/04/16 [Rx] Vancomycin HCl in Dextrose 5 % [Vancomycin 750 mg/250 ml-D5w] 750 mg IV BID #14 plast..bag 09/04/16 [Rx] Magic Mouthwash [Magic Mouthwash BLM] 10 ml PO QID PRN #240 ml 09/08/16 [Rx] HYDROcodone/Acet 10/325 mg [[place] 10-325 mg] 1 - 2 tab PO Q4HR PRN #100 tab [Rx] Albuterol Sulfate [Albuterol Inhaler] 2 puff IH Q4H PRN #1 inhaler 09/28/16 [Rx] Amoxicillin/Clavulanate [Augmentin] 500 mg PO BIDWM #20 tablet 09/28/16 [Rx] Budesonide/Formoterol 160/4.5 [Symbicort 160/4.5] 2 puff IH BID #1 inhaler 09/28 [Rx] Budesonide/Formoterol 160/4.5 [Symbicort 160/4.5] 2 puff IH BIDR #1 hfa.aer.ad 09/28/16 [Rx] Sodium Polystyrene Sulfonate [Kayexalate] 15 gm PO BID #4 mls 09/30/16 [Rx] Dexamethasone [Decadron] 4 mg PO BID #60 tab 10/01/16 [Rx] Allergies acetaminophen [From [place]] Allergy (Verified 08/31/16 12:00) itching,hives codeine Allergy (Verified 08/31/16 12:00) itching,hives fluticasone [From Advair Diskus] Allergy (Verified 08/31/16 12:00) Difficulty Breathing hydrocodone [From [place]] Allergy (Verified 08/31/16 12:00) itching,hives salmeterol [From Advair Diskus] Allergy (Verified 08/31/16 12:00) Difficulty Breathing ROS unobtainable: due to endotracheal tube Review of systems: as in HPI Oncology - Exam - Constitutional Vitals: Temp Pulse Resp BP Pulse Ox 97.0 F L 120 20 170/89 93 L 10/07/16 14:00 10/07/16 16:00 10/07/16 17:31 10/07/16 16:00 10/07/16 17:31 General appearance: thin - Head Head exam: Present: atraumatic - ENT Additional comments: ET tube, intubation - Neck Neck exam: Present: full ROM, normal inspection - Respiratory Respiratory exam: Present: CTAB - Cardiovascular Cardiovascular exam: Present: +S1, +S2 - GI/Abdominal GI/Abdominal exam: Present: diminished bowel sounds, normal bowel sounds, soft Additional comments: surgical dressing - Extremities Exam Additional comments: no pedal edema - Neurological Exam Additional comments: sedated, not performed Oncology - Results - Labs Labs: Short CBC 10/07/16 10/07/16 Range/Units 03:30 16:45 WBC 3.1 L 4.4 (4.3-11.1) K/mcL Hgb 8.3 L D 10.1 L D (11.5-15.4) g/dL Hct 25.2 L 31.6 L (35.3-44.9) % Plt Count 152 181 (140-400) K/mcL Neutrophils # 2.7 (1.6-8.9) K/mcL BMP 10/07/16 03:30 Sodium 138 Potassium 4.1 Chloride 106 Carbon Dioxide 25 BUN 22 H D Creatinine 0.46 L Glucose 110 H Calcium 9.2 - Imaging and Cardiology CT scan - abdomen Status: image reviewed by me Consult Discharge Plan - Plan Referrals: Jo-Ann Mensah, ENGRAVER MACHINE [Primary Care Provider] -
[2016-10-07] MEDS: Chlorhexidine Rinse 15 ML MOUTHWASH MM SCH (19:50)
[2016-10-08] MEDS: FentaNYL (PF) 1,000 MCG in 0.9 % Sodium Chloride 80 ML IVC SCH (01:14)
[2016-10-08] MEDS: Lacri-Lube 3.5 GM TUBE BOTH EYES SCH ×2 (03:22→08:08)
[2016-10-08 03:29] LABS: Hematocrit 24.8 % (35.3-44.9); Immature Granulocytes % 0.9 % (0-4); Lymphocytes # 0.1 K/mcL (0.6-4.6); Lymphocytes % 5.9 %; Mean Corpuscular HGB Conc 31.9 g/dL (31.6-35.5); Mean Corpuscular Volume 87.9 fL (83.0-100.0); Mean Platelet Volume 9.6 fL (9.4-12.4); Monocytes # 0.2 K/mcL (0.0-1.3); Monocytes % 7.3 %; Neutrophils # 1.9 K/mcL (1.6-8.9); Platelet Count 145 K/mcL (140-400); Red Blood Count 2.82 M/mcL (3.82-4.97); Red Cell Distribution Width 19.9 % (11.5-14.5); Segmented Neutrophils % 85.9 %
[2016-10-08] MEDS: Meropenem 1,000 MG in 0.9 % Sodium Chloride Mini Bag 100 ML IVPB SCH ×2 (03:29→16:44)
[2016-10-08 03:34] LABS: Hemoglobin 7.9 g/dL (11.5-15.4)
[2016-10-08] MEDS: Ipratropium/Albuterol Neb 3 ML IH SCH ×6 (03:35→23:32)
[2016-10-08 03:43] LABS: Anisocytosis 1+ (Not Present); Microcytosis Present (Not Present); Platelet Estimate Normal (Normal)
[2016-10-08 03:44] LABS: Alanine Aminotransferase 20 Units/L (0-55); Albumin/Globulin Ratio 0.5 (1.1-2.2); Alkaline Phosphatase 82 Units/L (38-126); Aspartate Amino Transferase 18 Units/L (5-34); BUN/Creatinine Ratio 37 (6-26); Bilirubin,Total 0.2 mg/dL (0.2-1.2); Blood Urea Nitrogen 16 mg/dL (7-20); Calcium 8.4 mg/dL (8.6-10.8); Carbon Dioxide 25 mEq/L (19-29); Chloride 111 mEq/L (98-109); Dohle Bodies Present (Not Present); Globulin 3.2 g/dL (2.4-3.5); Glucose 116 mg/dL (70-99); Osmolality,Calculated 294 (280-300); Potassium 3.6 mEq/L (3.5-4.5); Sodium 141 mEq/L (136-145); Total Protein 4.9 g/dL (6.0-8.3); eGFR For African Americans > 60 (> 60); eGFR For Non-African Americans > 60 (> 60)
[2016-10-08 03:46] LABS: Albumin 1.7 g/dL (3.5-5.0)
[2016-10-08 04:23] LABS: ABG Base Excess 0.1 mEq/L (-2.0 to 3.0); ABG HCO3 25.4 mEQ/L (21-27); ABG Oxygen Saturation 98 % (95-98); ABG PCO2 44 mmHg (35-45); ABG PH 7.37 pH Units (7.32-7.45); ABG PO2 107 mmHg (85-104); ABG TCO2 26.8 mEq/L (20-26)
[2016-10-08 04:24] LABS: Blood Gas FiO2 40 %
[2016-10-08] MEDS: 0.9 % Sodium Chloride 1,000 ML IVC SCH ×2 (05:55→19:22)
[2016-10-08] MEDS: Budesonide/Formoterol 160/4.5 MDI IH SCH ×2 (07:23→19:22)
--- NOTE | 2016-10-08 07:49 | General Surgery Progress Note ---
<Preston Churchill - Last Filed: 10/08/16 13:32> Date of Encounter: 10/08/16 Time of Encounter: 06:55 - Assessment and Plan (1) RLQ abdominal pain Current Visit: Yes Status: Acute POD #1 right hemicolectomy with reanastomosis. The mucosa of the colon appeared to be ischemic and there were visible areas of pneumatosis of the resected specimen. Colitis and mild pneumotosis was seen on the CT (10/06) limited to the cecum. The patient complained of unrelenting pain yesterday that was continuing to worsen and therefore emergency surgery was performed without additional imaging. The patient is currently on Metronidazole and Meropenem. Continue pain control. The patient is on steroids due to COPD exacerbation and will therefore need to be monitored for 7-14 days for anastamotic leak. (2) HCAP (healthcare-associated pneumonia) Current Visit: No Status: Acute The patient is on Meropenem and Metronidazole. Management per the medicine team. (3) Anemia Current Visit: Yes Status: Chronic Hemoglobin dropped from 8.3 to 7.9, which is likely dilutional anemia. Only minimal blood loss during surgery of 10ml. Will follow closely. (4) COPD (chronic obstructive pulmonary disease) Current Visit: Yes Status: Chronic Management per medicine team. Pulmonary team consulted today. (5) Diabetes mellitus Current Visit: Yes Status: Chronic Management per medicine team. (6) Lung cancer Current Visit: Yes Status: Chronic Last chemotherapy was last Wednesday Subjective Patient reports: feels better, pain is less, afebrile Narrative: History is limited as the patient is still intubated. Objective Vital Signs - Last 8 Hours Temp Pulse Resp BP Pulse Ox 10/08/16 07:40 97.1 F L 10/08/16 07:26 16 96 10/08/16 05:55 101 16 137/81 96 10/08/16 05:25 17 96 10/08/16 05:00 94 17 120/84 96 10/08/16 04:17 97.8 F 10/08/16 04:00 83 17 99/59 98 10/08/16 03:36 15 98 10/08/16 03:34 91 10/08/16 03:00 97.7 F 84 14 98/62 98 10/08/16 02:00 83 18 102/62 99 10/08/16 01:00 88 16 94/58 97 10/08/16 00:00 85 15 96/57 97 Intake and Output 10/07/16 10/07/16 10/08/16 15:59 23:59 07:59 Intake Total 1000 / 1000 250 / 250 1215.4 / 1215.4 Output Total 710 / 710 475 / 475 275 / 275 Balance 290 / 290 -225 / -225 940.4 / 940.4 Intake: IV Fluids 1000 / 1000 250 / 250 1215.4 / 1215.4 0.9 % Sodium Chloride 1, 1000 / 1000 1000 / 1000 000 ML @ 75 mls/hr IVC . [id number] ABDIRASHID Rx#: [id number] FentaNYL (PF) 1,000 MCG 100 / 100 In 0.9 % Sodium Chloride 80 ML @ Per Protocol IVC CONT ABDIRASHID Rx#:[id number] Heparin 25,000 UNIT/500 65.4 / 65.4 ML D5W 25,000 unit In 500 ml @ 12 UNIT/KG/HR 11. 365 mls/hr IVC .Q24H ABDIRASHID Rx#:[id number] Diprivan 1,000 mg In 100 100 / 100 ml @ Per Protocol IVC . Q0M ABDIRASHID Rx#:[id number] Merrem 1,000 MG In 0.9 % 100 / 100 Sodium Chloride (Mini-Bag +) 100 ML @ 200 mls/hr IVPB Q12H ABDIRASHID Rx#: [id number] Flagyl 250 MG/50 ML 250 50 / 50 50 / 50 mg In 50 ml @ 50 mls/hr IVPB Q8HR ABDIRASHID Rx#: [id number] Oral 0 / 0 0 / 0 0 / 0 Output: Estimated Blood Loss 10 / 10 Catheter 700 / 700 475 / 475 275 / 275 Other: Meal NPO Percent of Meal Consumed 0% Weight 49 kg Patient Weight 10/08/16 23:59 Weight 49 kg - General physical appearance no distress, cachectic - Eyes normal ocular movement - Neck Neck exam: trachea midline - Respiratory other (Patient is intubated) rales: bilateral - Cardiovascular Cardiovascular exam: Present: tachycardia - Abdomen Abdomen: Present: bowel sounds present, soft, tender (expected postoperative tenderness) - Integumentary no rash - Neurologic normal coordination, other (able to respond to yes and no questions appropriately ) - Musculoskeletal normal posture - Psychiatric other (unable to assess as the patient is intubated. ) - Labs 10/08/16 03:20 10/08/16 03:20 Diabetes panel 10/08/16 Range/Units 03:20 Sodium 141 (136-145) mEq/L Potassium 3.6 (3.5-4.5) mEq/L Chloride 111 H (98-109) mEq/L Carbon Dioxide 25 (19-29) mEq/L BUN 16 (7-20) mg/dL Creatinine 0.43 L (0.57-1.11) mg/dL Glucose 116 H (70-99) mg/dL Calcium 8.4 L (8.6-10.8) mg/dL AST 18 (5-34) Units/L ALT 20 (0-55) Units/L Alkaline Phosphatase 82 (38-126) Units/L Albumin 1.7 L (3.5-5.0) g/dL Calcium panel 10/08/16 Range/Units 03:20 Calcium 8.4 L (8.6-10.8) mg/dL Albumin 1.7 L (3.5-5.0) g/dL Pituitary panel 10/08/16 Range/Units 03:20 Sodium 141 (136-145) mEq/L Potassium 3.6 (3.5-4.5) mEq/L Chloride 111 H (98-109) mEq/L Carbon Dioxide 25 (19-29) mEq/L BUN 16 (7-20) mg/dL Creatinine 0.43 L (0.57-1.11) mg/dL Glucose 116 H (70-99) mg/dL Calcium 8.4 L (8.6-10.8) mg/dL Adrenal panel 10/08/16 Range/Units 03:20 Sodium 141 (136-145) mEq/L Potassium 3.6 (3.5-4.5) mEq/L Chloride 111 H (98-109) mEq/L Carbon Dioxide 25 (19-29) mEq/L BUN 16 (7-20) mg/dL Creatinine 0.43 L (0.57-1.11) mg/dL Glucose 116 H (70-99) mg/dL Calcium 8.4 L (8.6-10.8) mg/dL Total Bilirubin 0.2 (0.2-1.2) mg/dL AST 18 (5-34) Units/L ALT 20 (0-55) Units/L Alkaline Phosphatase 82 (38-126) Units/L Albumin 1.7 L (3.5-5.0) g/dL - VTE Documentation of Mechanical Device: Intermittent pneumatic compression device Consult Discharge Plan - Plan Referrals: Jo-Ann Mensah, HIMS CODER [Primary Care Provider] - - Attending Attestation I examined this patient and my medical decision-making was reviewed with the TACTICAL DEBRIEFER OFFICER/PA/Advanced Practice Nurse/Resident Physician. I agree with the documented findings, disposition and treatment plan as described except to the extent set forth below. <Dean Williamson - Last Filed: 10/09/16 12:57> - Assessment and Plan (1) RLQ abdominal pain Current Visit: Yes Status: Acute Objective Vital Signs - Last 8 Hours Temp Pulse Resp BP Pulse Ox 10/09/16 12:03 97.8 F 102 14 126/80 93 L 10/09/16 09:00 105 20 136/95 97 10/09/16 08:36 18 94 L 10/09/16 08:00 110 20 136/88 100 10/09/16 07:47 106 10/09/16 07:42 97.6 F 10/09/16 07:00 109 18 139/77 94 L 10/09/16 06:00 103 12 144/85 96 10/09/16 05:00 106 14 114/74 95 Intake and Output 10/08/16 10/09/16 10/09/16 23:59 07:59 15:59 Intake Total 1414.6 / 1414.6 100 / 100 1300 / 1300 Output Total 1500 / 1500 1500 / 1500 1300 / 1300 Balance -85.4 / -85.4 -1400 / -1400 0 / 0 Intake: IV Fluids 1414.6 / 1414.6 100 / 100 1300 / 1300 0.9 % Sodium Chloride 1, 1000 / 1000 1000 / 1000 000 ML @ 75 mls/hr IVC . [id number] ABDIRASHID Rx#: [id number] Heparin 25,000 UNIT/500 314.6 / 314.6 ML D5W 25,000 unit In 500 ml @ 12 UNIT/KG/HR 11. 365 mls/hr IVC .Q24H ABDIRASHID Rx#:[id number] Merrem 1,000 MG In 0.9 % 100 / 100 100 / 100 Sodium Chloride (Mini-Bag +) 100 ML @ 200 mls/hr IVPB Q12H ABDIRASHID Rx#: [id number] Potassium Chloride 20 mEq 100 / 100 200 / 200 /100 mL 20 meq In 100 ml @ 100 mls/hr IVPB Q1H ABDIRASHID Rx#:[id number] Oral 0 / 0 0 / 0 Output: Catheter 1500 / 1500 1500 / 1500 1300 / 1300 - Labs 10/09/16 03:58 10/09/16 03:58 Diabetes panel 10/09/16 Range/Units 03:58 Sodium 141 (136-145) mEq/L Potassium 2.8 L (3.5-4.5) mEq/L Chloride 104 (98-109) mEq/L Carbon Dioxide 28 (19-29) mEq/L BUN 9 (7-20) mg/dL Creatinine 0.47 L (0.57-1.11) mg/dL Glucose 127 H (70-99) mg/dL Calcium 8.5 L (8.6-10.8) mg/dL AST 25 (5-34) Units/L ALT 21 (0-55) Units/L Alkaline Phosphatase 79 (38-126) Units/L Albumin 2.0 L (3.5-5.0) g/dL Calcium panel 10/09/16 Range/Units 03:58 Calcium 8.5 L (8.6-10.8) mg/dL Albumin 2.0 L (3.5-5.0) g/dL Pituitary panel 10/09/16 Range/Units 03:58 Sodium 141 (136-145) mEq/L Potassium 2.8 L (3.5-4.5) mEq/L Chloride 104 (98-109) mEq/L Carbon Dioxide 28 (19-29) mEq/L BUN 9 (7-20) mg/dL Creatinine 0.47 L (0.57-1.11) mg/dL Glucose 127 H (70-99) mg/dL Calcium 8.5 L (8.6-10.8) mg/dL Adrenal panel 10/09/16 Range/Units 03:58 Sodium 141 (136-145) mEq/L Potassium 2.8 L (3.5-4.5) mEq/L Chloride 104 (98-109) mEq/L Carbon Dioxide 28 (19-29) mEq/L BUN 9 (7-20) mg/dL Creatinine 0.47 L (0.57-1.11) mg/dL Glucose 127 H (70-99) mg/dL Calcium 8.5 L (8.6-10.8) mg/dL Total Bilirubin 0.3 (0.2-1.2) mg/dL AST 25 (5-34) Units/L ALT 21 (0-55) Units/L Alkaline Phosphatase 79 (38-126) Units/L Albumin 2.0 L (3.5-5.0) g/dL - Attending Attestation The patient is seen with the ICU team in the resident today. She is doing quite well. She is ready to extubate. Her incision is healing well. She has a moderate anemia I believe this to be chronic and not related to acute blood loss. We will continue with supportive care today working close conjunction with the pulmonary team on extubation. Dean Williamson MD FACS
[2016-10-08] MEDS: Hydrocortisone Sodium Succ 100 MG/2 ML VIAL IVP SCH ×2 (07:52→19:23)
[2016-10-08] MEDS: Pantoprazole 40 MG VIAL IVP SCH (07:52)
[2016-10-08] MEDS: Chlorhexidine Rinse 15 ML MOUTHWASH MM SCH (07:53)
[2016-10-08] MEDS: MetroNIDAZOLE 250 MG/50 ML 250 MG/50 ML BAG IVPB SCH (08:07)
[2016-10-08] MEDS: *HR* Morphine 2 MG/ML SYRINGE IVP PRN ×3 (09:21→16:59)
--- NOTE | 2016-10-08 13:30 | Pulmonology Progress Note ---
<Nate Marshall - Last Filed: 10/08/16 13:27> Date of Encounter: 10/08/16 Time of Encounter: 13:27 Assessment and Plan (1) Chronic respiratory failure with hypoxia Current Visit: Yes Status: Chronic Patient has known history of COPD requiring 4 L at baseline at home. Admitted with concerns for HCAP, chest x-rays reviewed from current admission compared to x-ray from June without significant change. Patient was intubated for abdominal procedure. Difficulty with CPAP trial requiring re-sedation in the ICU. Initial ABG collected in the ICU demonstrates pH 7.27, PCO2 of 55, PO2 373, bicarbonate 25.3, vent adjustments made. Vitals temperature 97.0, heart rate 120, respirations 20, blood pressure 170/89 , 93% on mechanical vent. Tachycardia and hypertension improved after initiation of sedation. Likely secondary to postsurgical symptoms and endotracheal intubation. 10/08/2016 patient seen and evaluated patient bedside this morning. Tolerating CPAP trial without discomfort. Successfully extubated and comfortable on 3 L oxygen with oxygen saturations greater than 90% Plan: -Maintain oxygen saturations between 89-93% - Dual nebs ordered - Continue meropenem - Levaquin and Flagyl discontinued - Continue IV steroids. (2) COPD (chronic obstructive pulmonary disease) Current Visit: Yes Status: Chronic History of COPD with baseline 4 L oxygen at home. She did not require increased oxygen demand during her admission prior to her procedure. Chronic respiratory disease likely to complicate extubation from mechanical ventilation. Failed initial CPAP trial will attempt in the morning. 10/08/2016 patient successfully extubated after passing CPAP trial. Continue treatment for COPD. Plan: - Continue current medications, steroids and breathing treatments as listed above. - We will resume home inhalers. Qualifiers: COPD type: chronic bronchitis Chronic bronchitis type: simple Qualified Code(s): J41.0 - Simple chronic bronchitis (3) Pneumonia Current Visit: Yes Status: Ruled-out Patient admitted with HCAP concerns. CXR reviewed. Immunosuppressed with hx of lung cancer undergoing chemo treatment. Current low suspicion for pneumonia. 10/08/2016 patient stable. Discontinue Flagyl. Plan: - Continue antibiotics as listed above. Qualifiers: Pneumonia type: due to unspecified organism Laterality: left Lung location: unspecified part of lung Qualified Code(s): J18.9 - Pneumonia, unspecified organism (4) Necrosis of colon Current Visit: Yes Status: Acute Patient went under emergent right colectomy secondary to full-thickness necrosis of the colon around the cecum. She was stabilized and continued on mechanical ventilation and transferred to the ICU for continued therapy. Currently continued on antibiotic coverage including meropenem. Pulmonary critical care consultation for mechanical vent and respiratory disease management. 10/08/2016 patient stable, vital stable, patient extubated successfully. Postsurgical management per surgery team. 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 Currently undergoing chemotherapy. Qualifiers: Laterality: right Lung location: upper lobe of lung Qualified Code(s): C34.11 - Malignant neoplasm of upper lobe, right bronchus or lung (6) DVT prophylaxis Current Visit: No Status: Acute Currently on heparin drip post ischemic bowel findings. Subjective Interval history: Mrs. Guzman has been seen and examined outpatient bedside this morning. She was tolerating CPAP trial well and signaling that she wanted her ET tube removed. Post extubation she was breathing well on 3 L nasal cannula. She denies any throat pain or difficulty talking or swallowing. She denies any chest pain, shortness of breath, palpitations or productive cough. Her only complaint at this time is minor abdominal pain post surgery. She has not had a bowel movement or passed gas. Objective PUL Vital signs: Last Vital Signs Temp 98.5 F 10/08/16 12:13 Pulse 115 10/08/16 13:00 Resp 20 10/08/16 13:00 BP 143/84 10/08/16 13:00 Pulse Ox 93 L 10/08/16 13:00 Gen. Well-developed in no acute distress alert oriented and responding appropriately to commands. HEENT: Normocephalic, atraumatic, pupils are equal and reactive, oral mucosa is moist neck is supple trachea midline. Chest: Symmetric bilateral correlating with respiratory movement. Respiratory: Diffuse rhonchi appreciated in all lung cisse. Cardiac: Tachycardic, radial posterior tibial pulses were 2+ bilateral. Capillary refill is appropriate bilateral. Abdomen: Soft, midline incision is dressed without any signs of drainage. Hypoactive bowel sounds Extremities: Symmetric bilaterally without signs of erythema or edema Ventilator Settings Ventilator Settings: Ventilator Settings, Last 8 Hours Ventilator Mode VC+ Ventilator Mode VC+ Ventilator Mode VC+ Ventilator Tidal Volume 450 Setting Ventilator Tidal Volume 450 Setting Ventilator Tidal Volume 450 Setting Ventilator Respiratory Rate 14 Setting Ventilator Respiratory Rate 14 Setting Ventilator Respiratory Rate 14 Setting Actual Respiratory Rate 16 Actual Respiratory Rate 16 Actual Respiratory Rate 16 Positive End Expiratory 5 Pressure Positive End Expiratory 5 Pressure Positive End Expiratory 5 Pressure Peak Inspiratory Airway 11 Pressure Peak Inspiratory Airway 11 Pressure Peak Inspiratory Airway 11 Pressure Results - Laboratory Findings CBC and BMP: 10/08/16 03:20 10/08/16 03:20 ABG ABG pH 7.37 pH Units (7.32-7.45) 10/08/16 04:06 ABG pCO2 44 mmHg (35-45) 10/08/16 04:06 ABG pO2 107 mmHg (85-104) H 10/08/16 04:06 ABG O2 Saturation 98 % (95-98) 10/08/16 04:06 PT/INR, D-dimer PT 11.7 Seconds (9.4-12.1) 10/07/16 16:45 Abnormal lab findings: Abnormal lab results WBC 2.2 K/mcL (4.3-11.1) L 10/08/16 03:20 RBC 2.82 M/mcL (3.82-4.97) L 10/08/16 03:20 Hgb 7.9 g/dL (11.5-15.4) L D 10/08/16 03:20 Hct 24.8 % (35.3-44.9) L 10/08/16 03:20 RDW 19.9 % (11.5-14.5) H 10/08/16 03:20 Band Neutrophils % 52.0 % (0-4) H 10/06/16 07:50 Lymphocytes # 0.1 K/mcL (0.6-4.6) L 10/08/16 03:20 Toxic Granulation Present (Not Present) A 10/07/16 03:30 Dohle Bodies Present (Not Present) A 10/08/16 03:20 Large Platelets Present (Not Present) A 10/06/16 07:50 Anisocytosis 1+ (Not Present) A 10/08/16 03:20 Microcytosis Present (Not Present) A 10/08/16 03:20 APTT 36.1 Seconds (26.0-36.0) H 10/08/16 07:55 ABG pO2 107 mmHg (85-104) H 10/08/16 04:06 ABG Total CO2 26.8 mEq/L (20-26) H 10/08/16 04:06 Chloride 111 mEq/L (98-109) H 10/08/16 03:20 Creatinine 0.43 mg/dL (0.57-1.11) L 10/08/16 03:20 BUN/Creatinine Ratio 37 (6-26) H 10/08/16 03:20 Glucose 116 mg/dL (70-99) H 10/08/16 03:20 POC Glucose 151 (58-89) H 10/07/16 13:07 Calcium 8.4 mg/dL (8.6-10.8) L 10/08/16 03:20 Magnesium 1.5 mg/dL (1.6-2.6) L 10/07/16 03:30 Serum Total Protein 4.9 g/dL (6.0-8.3) L 10/08/16 03:20 Albumin 1.7 g/dL (3.5-5.0) L 10/08/16 03:20 Albumin/Globulin Ratio 0.5 (1.1-2.2) L 10/08/16 03:20 Prealbumin 11.0 mg/dL (16.0-38.0) L 10/08/16 03:20 Ur Squamous Epith Cells Many per lpf (None-Few) H 10/06/16 09:00 - Clinical Findings Intake & Output: Intake & Output 10/07/16 10/08/16 10/08/16 23:59 07:59 15:59 Intake Total 250 / 250 1315.4 / 1315.4 320 / 320 Output Total 475 / 475 275 / 275 650 / 650 Balance -225 / -225 1040.4 / 1040.4 -330 / -330 Weight 49 kg - VTE Documentation of Mechanical Device: Intermittent pneumatic compression device Consult Discharge Plan - Plan Referrals: Jo-Ann Mensah, MARKETING SUPPORT MANAGER [Primary Care Provider] - <Anisha Tom - Last Filed: 10/08/16 17:06> Objective PUL Vital signs: Last Vital Signs Temp 97.7 F 10/08/16 15:51 Pulse 113 10/08/16 16:00 Resp 18 10/08/16 16:15 BP 130/78 10/08/16 16:00 Pulse Ox 94 L 10/08/16 16:15 Results - Laboratory Findings CBC and BMP: 10/08/16 03:20 10/08/16 03:20 ABG ABG pH 7.37 pH Units (7.32-7.45) 10/08/16 04:06 ABG pCO2 44 mmHg (35-45) 10/08/16 04:06 ABG pO2 107 mmHg (85-104) H 10/08/16 04:06 ABG O2 Saturation 98 % (95-98) 10/08/16 04:06 PT/INR, D-dimer PT 11.7 Seconds (9.4-12.1) 10/07/16 16:45 Abnormal lab findings: Abnormal lab results WBC 2.2 K/mcL (4.3-11.1) L 10/08/16 03:20 RBC 2.82 M/mcL (3.82-4.97) L 10/08/16 03:20 Hgb 7.9 g/dL (11.5-15.4) L D 10/08/16 03:20 Hct 24.8 % (35.3-44.9) L 10/08/16 03:20 RDW 19.9 % (11.5-14.5) H 10/08/16 03:20 Band Neutrophils % 52.0 % (0-4) H 10/06/16 07:50 Lymphocytes # 0.1 K/mcL (0.6-4.6) L 10/08/16 03:20 Toxic Granulation Present (Not Present) A 10/07/16 03:30 Dohle Bodies Present (Not Present) A 10/08/16 03:20 Large Platelets Present (Not Present) A 10/06/16 07:50 Anisocytosis 1+ (Not Present) A 10/08/16 03:20 Microcytosis Present (Not Present) A 10/08/16 03:20 APTT 62.9 Seconds (26.0-36.0) H D 10/08/16 16:00 ABG pO2 107 mmHg (85-104) H 10/08/16 04:06 ABG Total CO2 26.8 mEq/L (20-26) H 10/08/16 04:06 Chloride 111 mEq/L (98-109) H 10/08/16 03:20 Creatinine 0.43 mg/dL (0.57-1.11) L 10/08/16 03:20 BUN/Creatinine Ratio 37 (6-26) H 10/08/16 03:20 Glucose 116 mg/dL (70-99) H 10/08/16 03:20 POC Glucose 151 (58-89) H 10/07/16 13:07 Calcium 8.4 mg/dL (8.6-10.8) L 10/08/16 03:20 Magnesium 1.5 mg/dL (1.6-2.6) L 10/07/16 03:30 Serum Total Protein 4.9 g/dL (6.0-8.3) L 10/08/16 03:20 Albumin 1.7 g/dL (3.5-5.0) L 10/08/16 03:20 Albumin/Globulin Ratio 0.5 (1.1-2.2) L 10/08/16 03:20 Prealbumin 11.0 mg/dL (16.0-38.0) L 10/08/16 03:20 Ur Squamous Epith Cells Many per lpf (None-Few) H 10/06/16 09:00 - Clinical Findings Intake & Output: Intake & Output 10/08/16 10/08/16 10/08/16 07:59 15:59 23:59 Intake Total 1315.4 / 1315.4 320 / 320 Output Total 275 / 275 1300 / 1300 Balance 1040.4 / 1040.4 -980 / -980 Weight 49 kg - Attending Attestation I examined this patient and my medical decision-making was reviewed with the POWER SUPERINTENDENT/PA/Advanced Practice Nurse/Resident Physician. I agree with the documented findings, disposition and treatment plan as described except to the extent set forth below. Patient seen and examined. Labs, radiology, chart personally reviewed. Agree with resident's history and physical, assessment, plan with following comments: POLITICAL AIDE: Patient follows commands, Pulmonary: Patient has advanced lung disease and CPAP trial was done, however patient was very anxious and decided to extubate her and if needed to use noninvasive ventilation. Continue bronchodilators and incentive spirometry. Patient is to let physical worsening respiratory status due to recent surgery and underlying lung disease. Cardiovascular: Relatively stable GI: Nutrition per dietary and GI prophylaxis per routine. Patient may need TPN , however we will defer that to the surgeon Heme: DVT prophylaxis per routine. Continue heparin drip ID: Continue antibiotics and plan to de-escalation Renal; urine out put and renal funtion reviewed Endorcine: blood glucose is monitored Lines: all lines checked and no evidence of infections Skin: skin care to prevent pressure ulcers per nursing routine care I spent 35 min of Critical Care time with this patient. It involved decision making of high complexity to assess, manipulate, and support vital organ system failure and/or to prevent further life threatening deterioration of the patient' s condition. The time involved in the performance of separately reportable procedures was not counted toward critical care time.
[2016-10-08] MEDS ORDERED: *HR* Morphine 2 MG/ML SYRINGE IVP PRN (17:00)
[2016-10-08] MEDS: *HR* HYDROmorphone (PF) 1 MG/ML SYRINGE IVP PRN ×3 (18:59→23:43)
[2016-10-08] MEDS: Heparin 25,000 UNIT/500 ML D5W 25,000 UNIT/500 ML MLS IVC SCH (22:17)
[2016-10-09] MEDS: *HR* HYDROmorphone (PF) 1 MG/ML SYRINGE IVP PRN ×3 (03:44→13:22)
[2016-10-09] MEDS: Meropenem 1,000 MG in 0.9 % Sodium Chloride Mini Bag 100 ML IVPB SCH ×2 (03:44→17:38)
[2016-10-09 04:02] LABS: Hematocrit 25.5 % (35.3-44.9); Hemoglobin 8.4 g/dL (11.5-15.4); Lymphocytes # 0.2 K/mcL (0.6-4.6); Mean Corpuscular HGB Conc 32.9 g/dL (31.6-35.5); Mean Corpuscular Hemoglobin 28.5 pg (28.0-33.3); Mean Corpuscular Volume 86.4 fL (83.0-100.0); Mean Platelet Volume 9.6 fL (9.4-12.4); Monocytes # 0.2 K/mcL (0.0-1.3); Platelet Count 152 K/mcL (140-400); Red Blood Count 2.95 M/mcL (3.82-4.97); Red Cell Distribution Width 20.1 % (11.5-14.5)
[2016-10-09] MEDS: Ipratropium/Albuterol Neb 3 ML IH SCH ×5 (04:05→21:05)
[2016-10-09 04:21] LABS: Alanine Aminotransferase 21 Units/L (0-55); Albumin/Globulin Ratio 0.6 (1.1-2.2); Alkaline Phosphatase 79 Units/L (38-126); Aspartate Amino Transferase 25 Units/L (5-34); BUN/Creatinine Ratio 19 (6-26); Bilirubin,Total 0.3 mg/dL (0.2-1.2); Blood Urea Nitrogen 9 mg/dL (7-20); Calcium 8.5 mg/dL (8.6-10.8); Carbon Dioxide 28 mEq/L (19-29); Chloride 104 mEq/L (98-109); Globulin 3.6 g/dL (2.4-3.5); Glucose 127 mg/dL (70-99); Osmolality,Calculated 292 (280-300); Potassium 2.8 mEq/L (3.5-4.5); Sodium 141 mEq/L (136-145); Total Protein 5.6 g/dL (6.0-8.3); eGFR For African Americans > 60 (> 60); eGFR For Non-African Americans > 60 (> 60)
[2016-10-09 06:12] LABS: Large Platelets Present (Not Present); Neutrophils # 2.3 K/mcL (1.6-8.9); Platelet Estimate Normal (Normal); Toxic Granulation Present (Not Present)
[2016-10-09 06:13] LABS: Hypochromasia Present (Not Present); Macrocytosis Present (Not Present)
[2016-10-09] MEDS: Budesonide/Formoterol 160/4.5 MDI IH SCH ×3 (07:32→21:05)
--- NOTE | 2016-10-09 07:42 | General Surgery Progress Note ---
<Preston Churchill - Last Filed: 10/09/16 08:27> Date of Encounter: 10/09/16 Time of Encounter: 06:30 - Assessment and Plan (1) RLQ abdominal pain Current Visit: Yes Status: Acute POD #2 right hemicolectomy with reanastomosis. The mucosa of the colon appeared to be ischemic and there were visible areas of pneumatosis of the resected specimen. Colitis and mild pneumotosis was seen on the CT (10/06) limited to the cecum. The patient complained of unrelenting pain yesterday that was continuing to worsen and therefore emergency surgery was performed without additional imaging. The patient is currently on Meropenem. Continue pain control. Advance diet to clear liquid 300cc Qshift. Heparin drip discontinued. Heparin 5000 units SQ Q12hr for DVT prophylaxis. The patient is on steroids due to COPD exacerbation and will therefore need to be monitored for an additional 6-13 days for anastamotic leak. (2) HCAP (healthcare-associated pneumonia) Current Visit: No Status: Acute The patient is on Meropenem. Management per the medicine team. (3) Anemia Current Visit: Yes Status: Chronic 7.9 > Improved to 8.4 today. Will follow closely. Qualifiers: Anemia type: unspecified type Qualified Code(s): D64.9 - Anemia, unspecified (4) COPD (chronic obstructive pulmonary disease) Current Visit: Yes Status: Chronic Management per medicine team. Pulmonary team consulted yesterday. Patient has been extubated Qualifiers: COPD type: chronic bronchitis Chronic bronchitis type: simple Qualified Code(s): J41.0 - Simple chronic bronchitis (5) Diabetes mellitus Current Visit: Yes Status: Chronic Management per medicine team. Qualifiers: Diabetes mellitus type: type 2 Diabetes mellitus complication status: with neurologic complications Diabetes mellitus complication detail: with polyneuropathy Diabetes mellitus senior living insulin use: without senior living use Qualified Code(s): E11.42 - Type 2 diabetes mellitus with diabetic polyneuropathy (6) Lung cancer Current Visit: Yes Status: Chronic Last chemotherapy was last Wednesday Qualifiers: Laterality: right Lung location: upper lobe of lung Qualified Code(s): C34.11 - Malignant neoplasm of upper lobe, right bronchus or lung (7) Hypokalemia Current Visit: Yes Status: Acute 2.8 this morning. 80meq replacement ordered this AM per the medicine team as 4 x 20meq doses. Subjective Patient reports: no new complaints, feels better, pain is less, no bowel movement, afebrile Narrative: Tolerating ice chips without any nausea or vomiting. Patient reports belching, but has not passed gas. Objective Vital Signs - Last 8 Hours Temp Pulse Resp BP Pulse Ox 10/09/16 06:00 103 12 144/85 96 10/09/16 05:00 106 14 114/74 95 10/09/16 04:05 16 94 L 10/09/16 04:00 98.0 F 109 16 155/83 93 L 10/09/16 03:00 107 19 140/70 10/09/16 02:00 111 13 112/75 96 10/09/16 01:00 120 13 112/66 98 10/09/16 00:00 117 18 126/86 97 10/08/16 23:50 116 Intake and Output 10/08/16 10/08/16 10/09/16 15:59 23:59 07:59 Intake Total 320 / 320 1414.6 / 1414.6 0 / 0 Output Total 1300 / 1300 1500 / 1500 650 / 650 Balance -980 / -980 -85.4 / -85.4 -650 / -650 Intake: IV Fluids 220 / 220 1414.6 / 1414.6 0.9 % Sodium Chloride 1, 1000 / 1000 000 ML @ 75 mls/hr IVC . [id number] ABDIRASHID Rx#: [id number] FentaNYL (PF) 1,000 MCG 50 / 50 In 0.9 % Sodium Chloride 80 ML @ Per Protocol IVC CONT ABDIRASHID Rx#:[id number] Heparin 25,000 UNIT/500 120 / 120 314.6 / 314.6 ML D5W 25,000 unit In 500 ml @ 12 UNIT/KG/HR 11. 365 mls/hr IVC .Q24H ABDIRASHID Rx#:[id number] Merrem 1,000 MG In 0.9 % 100 / 100 Sodium Chloride (Mini-Bag +) 100 ML @ 200 mls/hr IVPB Q12H ABDIRASHID Rx#: [id number] Flagyl 250 MG/50 ML 250 50 / 50 mg In 50 ml @ 50 mls/hr IVPB Q8HR ABDIRASHID Rx#: [id number] Oral 100 / 100 0 / 0 0 / 0 Output: Catheter 1300 / 1300 1500 / 1500 650 / 650 - General physical appearance no distress, cachectic - Eyes normal ocular movement - ENT normal mucosa - Neck Neck exam: trachea midline - Respiratory normal respiratory effort rales: bilateral (expiratory) - Cardiovascular Cardiovascular exam: Present: RRR - Abdomen Abdomen: Present: bowel sounds present, soft, non tender - Integumentary no rash - Neurologic CN 2-12 grossly intact - Musculoskeletal normal posture - Psychiatric oriented to time, oriented to person, oriented to place, speech is normal, memory intact - Labs 10/09/16 03:58 10/09/16 03:58 Diabetes panel 10/09/16 Range/Units 03:58 Sodium 141 (136-145) mEq/L Potassium 2.8 L (3.5-4.5) mEq/L Chloride 104 (98-109) mEq/L Carbon Dioxide 28 (19-29) mEq/L BUN 9 (7-20) mg/dL Creatinine 0.47 L (0.57-1.11) mg/dL Glucose 127 H (70-99) mg/dL Calcium 8.5 L (8.6-10.8) mg/dL AST 25 (5-34) Units/L ALT 21 (0-55) Units/L Alkaline Phosphatase 79 (38-126) Units/L Albumin 2.0 L (3.5-5.0) g/dL Calcium panel 10/09/16 Range/Units 03:58 Calcium 8.5 L (8.6-10.8) mg/dL Albumin 2.0 L (3.5-5.0) g/dL Pituitary panel 10/09/16 Range/Units 03:58 Sodium 141 (136-145) mEq/L Potassium 2.8 L (3.5-4.5) mEq/L Chloride 104 (98-109) mEq/L Carbon Dioxide 28 (19-29) mEq/L BUN 9 (7-20) mg/dL Creatinine 0.47 L (0.57-1.11) mg/dL Glucose 127 H (70-99) mg/dL Calcium 8.5 L (8.6-10.8) mg/dL Adrenal panel 10/09/16 Range/Units 03:58 Sodium 141 (136-145) mEq/L Potassium 2.8 L (3.5-4.5) mEq/L Chloride 104 (98-109) mEq/L Carbon Dioxide 28 (19-29) mEq/L BUN 9 (7-20) mg/dL Creatinine 0.47 L (0.57-1.11) mg/dL Glucose 127 H (70-99) mg/dL Calcium 8.5 L (8.6-10.8) mg/dL Total Bilirubin 0.3 (0.2-1.2) mg/dL AST 25 (5-34) Units/L ALT 21 (0-55) Units/L Alkaline Phosphatase 79 (38-126) Units/L Albumin 2.0 L (3.5-5.0) g/dL - VTE Documentation of Mechanical Device: Intermittent pneumatic compression device Consult Discharge Plan - Plan Referrals: Jo-Ann Mensah, [employer] CENTRIFUGAL OPERATOR [Primary Care Provider] - - Attending Attestation I examined this patient and my medical decision-making was reviewed with the FEDERAL MEDIATION COMMISSIONER/PA/Advanced Practice Nurse/Resident Physician. I agree with the documented findings, disposition and treatment plan as described except to the extent set forth below. <Dean Williamson - Last Filed: 10/09/16 13:01> - Assessment and Plan (1) RLQ abdominal pain Current Visit: Yes Status: Acute Objective Vital Signs - Last 8 Hours Temp Pulse Resp BP Pulse Ox 10/09/16 12:03 97.8 F 102 14 126/80 93 L 10/09/16 09:00 105 20 136/95 97 10/09/16 08:36 18 94 L 10/09/16 08:00 110 20 136/88 100 10/09/16 07:47 106 10/09/16 07:42 97.6 F 10/09/16 07:00 109 18 139/77 94 L 10/09/16 06:00 103 12 144/85 96 Intake and Output 10/08/16 10/09/16 10/09/16 23:59 07:59 15:59 Intake Total 1414.6 / 1414.6 100 / 100 1300 / 1300 Output Total 1500 / 1500 1500 / 1500 1300 / 1300 Balance -85.4 / -85.4 -1400 / -1400 0 / 0 Intake: IV Fluids 1414.6 / 1414.6 100 / 100 1300 / 1300 0.9 % Sodium Chloride 1, 1000 / 1000 1000 / 1000 000 ML @ 75 mls/hr IVC . [id number] ABDIRASHID Rx#: [id number] Heparin 25,000 UNIT/500 314.6 / 314.6 ML D5W 25,000 unit In 500 ml @ 12 UNIT/KG/HR 11. 365 mls/hr IVC .Q24H ABDIRASHID Rx#:[id number] Merrem 1,000 MG In 0.9 % 100 / 100 100 / 100 Sodium Chloride (Mini-Bag +) 100 ML @ 200 mls/hr IVPB Q12H ABDIRASHID Rx#: [id number] Potassium Chloride 20 mEq 100 / 100 200 / 200 /100 mL 20 meq In 100 ml @ 100 mls/hr IVPB Q1H ABDIRASHID Rx#:[id number] Oral 0 / 0 0 / 0 Output: Catheter 1500 / 1500 1500 / 1500 1300 / 1300 - Labs 10/09/16 03:58 10/09/16 03:58 Diabetes panel 10/09/16 Range/Units 03:58 Sodium 141 (136-145) mEq/L Potassium 2.8 L (3.5-4.5) mEq/L Chloride 104 (98-109) mEq/L Carbon Dioxide 28 (19-29) mEq/L BUN 9 (7-20) mg/dL Creatinine 0.47 L (0.57-1.11) mg/dL Glucose 127 H (70-99) mg/dL Calcium 8.5 L (8.6-10.8) mg/dL AST 25 (5-34) Units/L ALT 21 (0-55) Units/L Alkaline Phosphatase 79 (38-126) Units/L Albumin 2.0 L (3.5-5.0) g/dL Calcium panel 10/09/16 Range/Units 03:58 Calcium 8.5 L (8.6-10.8) mg/dL Albumin 2.0 L (3.5-5.0) g/dL Pituitary panel 10/09/16 Range/Units 03:58 Sodium 141 (136-145) mEq/L Potassium 2.8 L (3.5-4.5) mEq/L Chloride 104 (98-109) mEq/L Carbon Dioxide 28 (19-29) mEq/L BUN 9 (7-20) mg/dL Creatinine 0.47 L (0.57-1.11) mg/dL Glucose 127 H (70-99) mg/dL Calcium 8.5 L (8.6-10.8) mg/dL Adrenal panel 10/09/16 Range/Units 03:58 Sodium 141 (136-145) mEq/L Potassium 2.8 L (3.5-4.5) mEq/L Chloride 104 (98-109) mEq/L Carbon Dioxide 28 (19-29) mEq/L BUN 9 (7-20) mg/dL Creatinine 0.47 L (0.57-1.11) mg/dL Glucose 127 H (70-99) mg/dL Calcium 8.5 L (8.6-10.8) mg/dL Total Bilirubin 0.3 (0.2-1.2) mg/dL AST 25 (5-34) Units/L ALT 21 (0-55) Units/L Alkaline Phosphatase 79 (38-126) Units/L Albumin 2.0 L (3.5-5.0) g/dL - Attending Attestation The patient is seen with the resident. The patient is in much better condition today. She is extubated and communicating easily. She asked appropriate questions. On physical examination her lungs are clear and she has bowel sounds. I recommended going ahead with the volume limited clear liquid diet. She also has hypokalemia which needs to be corrected and these orders are written. It is okay to transfer out of the ICU at this point. I am very pleased with her overall clinical course. Continue supportive care. Dean Williamson MD FACS
[2016-10-09] MEDS: Hydrocortisone Sodium Succ 100 MG/2 ML VIAL IVP SCH ×2 (08:41→20:06)
[2016-10-09] MEDS: Pantoprazole 40 MG VIAL IVP SCH (08:41)
[2016-10-09] MEDS: 0.9 % Sodium Chloride 1,000 ML IVC SCH ×3 (08:42→22:48)
--- NOTE | 2016-10-09 08:50 | Pulmonology Progress Note ---
<Don Arguelles - Last Filed: 10/09/16 10:59> Date of Encounter: 10/09/16 Time of Encounter: 07:05 Assessment and Plan (1) Chronic respiratory failure with hypoxia Current Visit: Yes Status: Chronic Patient has known history of COPD requiring 4 L at baseline at home. Admitted with concerns for HCAP, chest x-rays reviewed from current admission compared to x-ray from June without significant change. Patient was intubated for abdominal procedure. Difficulty with CPAP trial requiring re-sedation in the ICU. Initial ABG collected in the ICU demonstrates pH 7.27, PCO2 of 55, PO2 373, bicarbonate 25.3, vent adjustments made. Vitals temperature 97.0, heart rate 120, respirations 20, blood pressure 170/89 , 93% on mechanical vent. Hypertension improved after initiation of sedation. Likely secondary to postsurgical symptoms and endotracheal intubation. Successfully extubated on 10/08/16 and comfortable on 4 L oxygen with oxygen saturations greater than 90% Plan: -Maintain oxygen saturations between 89-93% - Dual nebs ordered - Continue meropenem - Levaquin and Flagyl discontinued - Continue IV steroids. - Transfer to the floor (2) COPD (chronic obstructive pulmonary disease) Current Visit: Yes Status: Chronic History of COPD with baseline 4 L oxygen at home. She did not require increased oxygen demand during her admission prior to her procedure. Chronic respiratory disease likely to complicate extubation from mechanical ventilation. Failed initial CPAP trial will attempt in the morning. 10/08/2016 patient successfully extubated after passing CPAP trial. Continue treatment for COPD. Plan: - Continue current medications, steroids and breathing treatments as listed above. - Resumed home inhalers. Qualifiers: COPD type: chronic bronchitis Chronic bronchitis type: simple Qualified Code(s): J41.0 - Simple chronic bronchitis (3) HCAP (healthcare-associated pneumonia) Current Visit: No Status: Acute Patient admitted with HCAP concerns. CXR reviewed. Immunosuppressed with hx of lung cancer undergoing chemo treatment. Current low suspicion for pneumonia. -Continue Meropenem (d4) (4) Necrosis of colon Current Visit: Yes Status: Acute POD #2 right hemicolectomy with reanastomosis by Dr. Williamson - followed by Surgery. Currently on Meropenem. Continue pain control. Clear liquid diet per surgery of 300cc Qshift. Heparin drip discontinued. Heparin 5000 units SQ Q12hr for DVT prophylaxis. (5) Anemia Current Visit: Yes Status: Chronic Hgb 11.2>8.3>10.1>7.9>8.4 continue to monitor. Qualifiers: Anemia type: unspecified type Qualified Code(s): D64.9 - Anemia, unspecified (6) Hypokalemia Current Visit: Yes Status: Acute 2.8 this morning. 80meq replacement ordered this AM. 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 Currently undergoing chemotherapy. Qualifiers: Laterality: right Lung location: upper lobe of lung Qualified Code(s): C34.11 - Malignant neoplasm of upper lobe, right bronchus or lung (8) DVT prophylaxis Current Visit: No Status: Acute Heparin drip dc'd. Continue with Heparin 5,000 units SQ Q12H for DVT prophylaxis. Subjective Principal diagnosis: Acute respiratory failure s/p hemicoletomy. Interval history: Mrs. Guzman has been seen and examined bedside this morning. She was breathing well on 5 L nasal cannula with O2 satuation 100%, decreased to 4L via nasal cannula. She denies any throat pain or difficulty talking or swallowing. She denies any chest pain, shortness of breath. She has not had a bowel movement , but states she is passing gas. Objective PUL Vital signs: Last Vital Signs Temp 97.6 F 10/09/16 07:42 Pulse 110 10/09/16 08:00 Resp 18 10/09/16 08:36 BP 136/88 10/09/16 08:00 Pulse Ox 94 L 10/09/16 08:36 General appearance: no acute distress, alert Eyes: nonicteric ENT: oropharynx moist Neck: supple Effort: normal Auscultation: bilateral: rhonchi Cardiovascular: other (tachycardia) Gastrointestinal: hypoactive bowel sounds, soft, tender (mild,expected post- operative.), other (midline incision, dressed without signs of drainage.) Integumentary: normal, other Extremities: no cyanosis, no edema, no clubbing, other (capillary refill <2 sec) Musculoskeletal: no deformities non-focal exam mood appropriate, affect normal Results - Laboratory Findings CBC and BMP: 10/09/16 03:58 10/09/16 03:58 ABG ABG pH 7.37 pH Units (7.32-7.45) 10/08/16 04:06 ABG pCO2 44 mmHg (35-45) 10/08/16 04:06 ABG pO2 107 mmHg (85-104) H 10/08/16 04:06 ABG O2 Saturation 98 % (95-98) 10/08/16 04:06 PT/INR, D-dimer PT 11.7 Seconds (9.4-12.1) 10/07/16 16:45 Abnormal lab findings: Abnormal lab results WBC 2.7 K/mcL (4.3-11.1) L 10/09/16 03:58 RBC 2.95 M/mcL (3.82-4.97) L 10/09/16 03:58 Hgb 8.4 g/dL (11.5-15.4) L 10/09/16 03:58 Hct 25.5 % (35.3-44.9) L 10/09/16 03:58 RDW 20.1 % (11.5-14.5) H 10/09/16 03:58 Band Neutrophils % 8.0 % (0-4) H 10/09/16 03:58 Lymphocytes # 0.2 K/mcL (0.6-4.6) L 10/09/16 03:58 Toxic Granulation Present (Not Present) A 10/09/16 03:58 Dohle Bodies Present (Not Present) A 10/08/16 03:20 Large Platelets Present (Not Present) A 10/09/16 03:58 Hypochromasia Present (Not Present) A 10/09/16 03:58 Anisocytosis 1+ (Not Present) A 10/08/16 03:20 Microcytosis Present (Not Present) A 10/08/16 03:20 Macrocytosis Present (Not Present) A 10/09/16 03:58 APTT 67.0 Seconds (26.0-36.0) H 10/09/16 03:58 ABG pO2 107 mmHg (85-104) H 10/08/16 04:06 ABG Total CO2 26.8 mEq/L (20-26) H 10/08/16 04:06 Potassium 2.8 mEq/L (3.5-4.5) L 10/09/16 03:58 Creatinine 0.47 mg/dL (0.57-1.11) L 10/09/16 03:58 Glucose 127 mg/dL (70-99) H 10/09/16 03:58 POC Glucose 151 (58-89) H 10/07/16 13:07 Calcium 8.5 mg/dL (8.6-10.8) L 10/09/16 03:58 Magnesium 1.5 mg/dL (1.6-2.6) L 10/07/16 03:30 Serum Total Protein 5.6 g/dL (6.0-8.3) L 10/09/16 03:58 Albumin 2.0 g/dL (3.5-5.0) L 10/09/16 03:58 Globulin 3.6 g/dL (2.4-3.5) H 10/09/16 03:58 Albumin/Globulin Ratio 0.6 (1.1-2.2) L 10/09/16 03:58 Prealbumin 11.0 mg/dL (16.0-38.0) L 10/08/16 03:20 Ur Squamous Epith Cells Many per lpf (None-Few) H 10/06/16 09:00 - Clinical Findings Intake & Output: Intake & Output 10/08/16 10/09/16 10/09/16 23:59 07:59 15:59 Intake Total 1414.6 / 1414.6 100 / 100 1200 / 1200 Output Total 1500 / 1500 1500 / 1500 Balance -85.4 / -85.4 -1400 / -1400 1200 / 1200 - VTE Documentation of Mechanical Device: Intermittent pneumatic compression device Consult Discharge Plan - Plan Referrals: Jo-Ann Mensah CNP [Primary Care Provider] - <Anisha Tom - Last Filed: 10/09/16 16:56> Objective PUL Vital signs: Last Vital Signs Temp 98.4 F 10/09/16 15:47 Pulse 105 10/09/16 15:47 Resp 16 10/09/16 16:39 BP 135/80 10/09/16 15:47 Pulse Ox 90 L 10/09/16 16:39 Results - Laboratory Findings CBC and BMP: 10/09/16 03:58 10/09/16 03:58 ABG ABG pH 7.37 pH Units (7.32-7.45) 10/08/16 04:06 ABG pCO2 44 mmHg (35-45) 10/08/16 04:06 ABG pO2 107 mmHg (85-104) H 10/08/16 04:06 ABG O2 Saturation 98 % (95-98) 10/08/16 04:06 PT/INR, D-dimer PT 11.7 Seconds (9.4-12.1) 10/07/16 16:45 Abnormal lab findings: Abnormal lab results WBC 2.7 K/mcL (4.3-11.1) L 10/09/16 03:58 RBC 2.95 M/mcL (3.82-4.97) L 10/09/16 03:58 Hgb 8.4 g/dL (11.5-15.4) L 10/09/16 03:58 Hct 25.5 % (35.3-44.9) L 10/09/16 03:58 RDW 20.1 % (11.5-14.5) H 10/09/16 03:58 Band Neutrophils % 8.0 % (0-4) H 10/09/16 03:58 Lymphocytes # 0.2 K/mcL (0.6-4.6) L 10/09/16 03:58 Toxic Granulation Present (Not Present) A 10/09/16 03:58 Dohle Bodies Present (Not Present) A 10/08/16 03:20 Large Platelets Present (Not Present) A 10/09/16 03:58 Hypochromasia Present (Not Present) A 10/09/16 03:58 Anisocytosis 1+ (Not Present) A 10/08/16 03:20 Microcytosis Present (Not Present) A 10/08/16 03:20 Macrocytosis Present (Not Present) A 10/09/16 03:58 APTT 67.0 Seconds (26.0-36.0) H 10/09/16 03:58 ABG pO2 107 mmHg (85-104) H 10/08/16 04:06 ABG Total CO2 26.8 mEq/L (20-26) H 10/08/16 04:06 Potassium 2.8 mEq/L (3.5-4.5) L 10/09/16 03:58 Creatinine 0.47 mg/dL (0.57-1.11) L 10/09/16 03:58 Glucose 127 mg/dL (70-99) H 10/09/16 03:58 POC Glucose 151 (58-89) H 10/07/16 13:07 Calcium 8.5 mg/dL (8.6-10.8) L 10/09/16 03:58 Magnesium 1.5 mg/dL (1.6-2.6) L 10/07/16 03:30 Serum Total Protein 5.6 g/dL (6.0-8.3) L 10/09/16 03:58 Albumin 2.0 g/dL (3.5-5.0) L 10/09/16 03:58 Globulin 3.6 g/dL (2.4-3.5) H 10/09/16 03:58 Albumin/Globulin Ratio 0.6 (1.1-2.2) L 10/09/16 03:58 Prealbumin 11.0 mg/dL (16.0-38.0) L 10/08/16 03:20 Ur Squamous Epith Cells Many per lpf (None-Few) H 10/06/16 09:00 - Clinical Findings Intake & Output: Intake & Output 10/09/16 10/09/16 10/09/16 07:59 15:59 23:59 Intake Total 100 / 100 1420 / 1420 Output Total 1500 / 1500 2300 / 2300 Balance -1400 / -1400 -880 / -880 - Attending Attestation I examined this patient and my medical decision-making was reviewed with the SEED ANALYSIS LABORATORY ASSISTANT/PA/Advanced Practice Nurse/Resident Physician. I agree with the documented findings, disposition and treatment plan as described except to the extent set forth below. Patient seen and examined. Labs, radiology, chart personally reviewed. 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 Enteral feeds versus TPN to be decided by surgeon Heme: DVT prophylaxis per routine. Stop heparin drip after discussion with the surgeon and the DVT prophylaxis ID: Continue antibiotics and plan to de-escalation Renal; urine out put and renal funtion reviewed Endorcine: blood glucose is monitored Lines: all lines checked and no evidence of infections Skin: skin care to prevent pressure ulcers per nursing routine care Discussed with surgery team and patient to be transferred to the floor. Please call for any questions.
[2016-10-09] MEDS ORDERED: Ondansetron 4 MG/2 ML VIAL IVP PRN (09:25)
[2016-10-09] MEDS ORDERED: Ipratropium/Albuterol Neb 3 ML IH PRN (09:25)
--- NOTE | 2016-10-09 10:25 | Internal Med Progress Note ---
Date of Encounter: 10/09/16 Time of Encounter: 10:23 - Assessment and plan (1) Colitis Current Visit: Yes Status: Acute Assessment and plan: Surgery on board and Patient underwent right hemicolectomy with reanastomosis for full-thickness necrosis. Postoperative day 2. Postoperative care per surgery. Noted to be doing well. Started on clear liquid diet today, tolerating well. Continue to monitor vital signs and electrolytes closely. Noted to have hypokalemia, supplement with IV potassium chloride. Continue IV antibiotics-meropenem for possible intra-abdominal source of infection. Per surgery, patient needs further monitoring for anastomotic leak as she is also noted to be on steroids Physical therapy evaluation noted, recommend placement in extended care facility for continued rehabilitation. Patient seems to be agreeable to this. (2) Pneumonia Current Visit: Yes Status: Ruled-out Assessment and plan: Less likely new pneumonia. Qualifiers: Pneumonia type: due to unspecified organism Laterality: left Lung location: unspecified part of lung Qualified Code(s): J18.9 - Pneumonia, unspecified organism (3) Chronic respiratory failure with hypoxia Current Visit: Yes Status: Chronic Assessment and plan: Due to COPD. Continue bronchodilators, supplemental oxygen, inhaled corticosteroids. Continue tapering down steroids as tolerated. Was unable to weaned off ventilator post-surgery and had to be monitored in ICU for 2 days prior to extubation. (4) Anemia Current Visit: Yes Status: Chronic Assessment and plan: Hb stable today; received 2units PRBC transfusion post-op; continue to monitor Hb cosely. 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 Qualifiers: Diabetes mellitus type: type 2 Diabetes mellitus complication status: with neurologic complications Diabetes mellitus complication detail: with polyneuropathy Diabetes mellitus longterm insulin use: without longterm use Qualified Code(s): E11.42 - Type 2 diabetes mellitus with diabetic polyneuropathy (8) GERD (gastroesophageal reflux disease) Current Visit: Yes Status: Chronic Qualifiers: Esophagitis presence: without esophagitis Qualified Code(s): K21.9 - Gastro -esophageal reflux disease without esophagitis (9) HTN (hypertension) Current Visit: Yes Status: Chronic Qualifiers: Hypertension type: essential hypertension Qualified Code(s): I10 - Essential (primary) hypertension (10) Lung cancer Current Visit: Yes Status: Chronic Assessment and plan: Follows with oncology as outpatient, completed first cycle of chemoradiation therapy. 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 Qualifiers: Laterality: right Lung location: upper lobe of lung Qualified Code(s): C34.11 - Malignant neoplasm of upper lobe, right bronchus or lung - Subjective Interval history: Doing well since abdominal surgery. Tolerates clear liquid diet. Unable to speak loudly but able to mouth words or write them down. Passing flatus; - Constitutional Vitals: Temp Pulse Resp BP Pulse Ox 97.6 F 105 20 136/95 97 10/09/16 07:42 10/09/16 09:00 10/09/16 09:00 10/09/16 09:00 10/09/16 09:00 General appearance: Present: cachectic, A&O X 3, answers questions appropriately - Respiratory Respiratory exam: Present: CTAB (coarse breath sounds B/L). Absent: accessory muscle use, rales, rhonchi, wheezes - Cardiovascular Cardiovascular exam: Present: RRR, +S1, +S2, tachycardia. Absent: diastolic murmur, gallop, rubs, systolic murmur - GI/Abdominal GI/Abdominal exam: Present: hyperactive bowel sounds, soft (nondistended, mild edema around postop surgical wound in midline; dressing dry and intact; mild tenderenss+), no peritoneal signs. Absent: distended, tenderness - Neurological Exam Neurological exam: Present: CN II-XII intact, oriented X3, no focal deficits. Absent: pronater drift, facial droop, speech deficit - Skin Skin exam: Present: dry, intact Internal Medicine: Result - Labs CBC & Chem 7: 10/09/16 03:58 10/09/16 03:58 Labs: Short CBC 10/09/16 Range/Units 03:58 WBC 2.7 L (4.3-11.1) K/mcL Hgb 8.4 L (11.5-15.4) g/dL Hct 25.5 L (35.3-44.9) % Plt Count 152 (140-400) K/mcL Neutrophils # 2.3 (1.6-8.9) K/mcL BMP 10/09/16 03:58 Sodium 141 Potassium 2.8 L Chloride 104 Carbon Dioxide 28 BUN 9 Creatinine 0.47 L Glucose 127 H Calcium 8.5 L Liver Function 10/09/16 Range/Units 03:58 Total Bilirubin 0.3 (0.2-1.2) mg/dL AST 25 (5-34) Units/L ALT 21 (0-55) Units/L Alkaline Phosphatase 79 (38-126) Units/L Albumin 2.0 L (3.5-5.0) g/dL - ABG Interpretation ABG results: ABG ABG pH 7.37 pH Units (7.32-7.45) 10/08/16 04:06 ABG pCO2 44 mmHg (35-45) 10/08/16 04:06 ABG pO2 107 mmHg (85-104) H 10/08/16 04:06 ABG O2 Saturation 98 % (95-98) 10/08/16 04:06 PT/INR, D-dimer PT 11.7 Seconds (9.4-12.1) 10/07/16 16:45 - VTE Documentation of Mechanical Device: Intermittent pneumatic compression device Consult Discharge Plan - Plan Referrals: Jo-Ann Mensah CNP [Primary Care Provider] -
[2016-10-09] MEDS: *HR* Heparin 5,000 UNIT/ML VIAL SQ SCH (17:37)
[2016-10-09] MEDS ORDERED: *HR* Heparin 5,000 UNIT/ML VIAL SQ SCH (19:00)
[2016-10-09] MEDS: *HR* Morphine 2 MG/ML SYRINGE IVP PRN (22:45)
[2016-10-10] MEDS: Ipratropium/Albuterol Neb 3 ML IH SCH ×7 (01:14→23:35)
[2016-10-10] MEDS: Meropenem 1,000 MG in 0.9 % Sodium Chloride Mini Bag 100 ML IVPB SCH ×2 (04:33→16:23)
[2016-10-10] MEDS: *HR* Morphine 2 MG/ML SYRINGE IVP PRN (04:34)
[2016-10-10] MEDS: *HR* Heparin 5,000 UNIT/ML VIAL SQ SCH ×2 (06:19→20:53)
[2016-10-10] MEDS: Budesonide/Formoterol 160/4.5 MDI IH SCH ×2 (08:08→20:51)
[2016-10-10] MEDS ORDERED: Pantoprazole 40 MG VIAL IVP SCH (09:00)
[2016-10-10] MEDS: Hydrocortisone Sodium Succ 100 MG/2 ML VIAL IVP SCH (09:21)
[2016-10-10] MEDS ORDERED: Potassium Chloride Elixir 20 MEQ/15 ML UDC PO ONE (09:31)
[2016-10-10] MEDS ORDERED: Potassium Chloride 40 MEQ, Lidocaine 1% 2 ML in D5% in Water 500 ML IVPB ONE (09:31)
--- NOTE | 2016-10-10 09:39 | General Surgery Progress Note ---
Date of Encounter: 10/10/16 Time of Encounter: 09:39 - Assessment and Plan (1) Hypokalemia Current Visit: Yes Status: Acute In level of 2.8. A written for both oral and IV replacement. (2) Necrosis of colon Current Visit: Yes Status: Acute Patient status post colectomy. She is tolerated clears and actually has a positive appetite. Will write for full liquid diet today. We will also start dressing changes today. Up and out of bed to chair. Once patient is unable to tolerate then will consider removal of Jackson catheter. Continue Jackson catheter for accurate I's and O's. Subjective Patient reports: no new complaints (Mild incisional pain. No nausea or vomiting.) Objective Vital Signs - Last 8 Hours Temp Pulse Resp BP Pulse Ox 10/10/16 06:35 97.9 F 80 18 137/77 90 L 10/10/16 05:00 16 96 10/10/16 04:05 98.6 F 101 14 131/75 90 L Intake and Output 10/09/16 10/10/16 10/10/16 23:59 07:59 15:59 Intake Total 340 / 340 0 / 0 Output Total 950 / 950 1100 / 1100 Balance -610 / -610 -1100 / -1100 Intake: IV Fluids 100 / 100 Merrem 1,000 MG In 0.9 % 100 / 100 Sodium Chloride (Mini-Bag +) 100 ML @ 200 mls/hr IVPB Q12H [facility] Rx#: [id number] Oral 240 / 240 0 / 0 Output: Catheter 950 / 950 1100 / 1100 Other: Meal Dinner Weight 49.3 kg Patient Weight 10/10/16 23:59 Weight 49.3 kg - General physical appearance well developed, well nourished - Abdomen Abdomen: Present: bowel sounds present, soft, tender (Mild arden-incisional pain) - Incision Incision: Present: clean and dry, intact - Labs 10/10/16 12:40 10/10/16 12:40 - VTE Documentation of Mechanical Device: Intermittent pneumatic compression device Consult Discharge Plan - Plan Referrals: Jo-Ann Mensah, RN OFFICE [Primary Care Provider] -
[2016-10-10] MEDS ORDERED: *HR* HYDROmorphone (PF) 1 MG/ML SYRINGE IVP PRN (12:13)
--- NOTE | 2016-10-10 12:17 | Internal Med Progress Note ---
Date of Encounter: 10/10/16 Time of Encounter: 12:13 - Assessment and plan (1) Colitis Current Visit: Yes Status: Acute Assessment and plan: Surgery on board and Patient underwent right hemicolectomy with reanastomosis for full-thickness necrosis. Postoperative day 3. Postoperative care per surgery. Noted to be doing well. Advanced to full liquid diet today, tolerating well. Continue to monitor vital signs and electrolytes closely. Recheck electrolytes. Continue IV antibiotics-meropenem for possible intra- abdominal source of infection. Hold IV Hydrocortisone, which has been started for severe sepsis at the time of admission. Physical therapy evaluation noted, recommend placement in extended care facility for continued rehabilitation. However patient refuses to be placed. (2) Pneumonia Current Visit: Yes Status: Ruled-out Qualifiers: Pneumonia type: due to unspecified organism Laterality: left Lung location: unspecified part of lung Qualified Code(s): J18.9 - Pneumonia, unspecified organism (3) Chronic respiratory failure with hypoxia Current Visit: Yes Status: Chronic Assessment and plan: Due to COPD. Continue bronchodilators, supplemental oxygen, inhaled corticosteroids. Hold maintenance steroids until discharge to allow wound healing. (4) Anemia Current Visit: Yes Status: Chronic Assessment and plan: received 2units PRBC transfusion post-op; recheck Hb today; Qualifiers: Anemia type: unspecified type Qualified Code(s): D64.9 - Anemia, unspecified (5) COPD (chronic obstructive pulmonary disease) Current Visit: Yes Status: Chronic Qualifiers: COPD type: chronic bronchitis Chronic bronchitis type: simple Qualified Code(s): J41.0 - Simple chronic bronchitis (6) DJD (degenerative joint disease) Current Visit: Yes Status: Chronic Qualifiers: Osteoarthritis location: spine Spinal region: lumbar Spinal osteoarthritis complication: with radiculopathy Qualified Code(s): 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, lumbar region (7) Diabetes mellitus Current Visit: Yes Status: Chronic Qualifiers: Diabetes mellitus type: type 2 Diabetes mellitus complication status: with neurologic complications Diabetes mellitus complication detail: with polyneuropathy Diabetes mellitus business functional analyst insulin use: without business functional analyst use Qualified Code(s): E11.42 - Type 2 diabetes mellitus with diabetic polyneuropathy (8) GERD (gastroesophageal reflux disease) Current Visit: Yes Status: Chronic Qualifiers: Esophagitis presence: without esophagitis Qualified Code(s): K21.9 - Gastro -esophageal reflux disease without esophagitis (9) HTN (hypertension) Current Visit: Yes Status: Chronic Qualifiers: Hypertension type: essential hypertension Qualified Code(s): I10 - Essential (primary) hypertension (10) Lung cancer Current Visit: Yes Status: Chronic Qualifiers: Laterality: right Lung location: upper lobe of lung Qualified Code(s): C34.11 - Malignant neoplasm of upper lobe, right bronchus or lung - Subjective Interval history: Doing well; able to communicate through writing as she cannot speak well due to recent radiation treatment. Surrounded by multigenerational family members; abdominal pain is controlled with pain meds; no nausea or vomiting; reports flatus but no bowel movements yet; tolerating clear liquid diet and milkshakes; - Constitutional Vitals: Temp Pulse Resp BP Pulse Ox 97.5 F L 97 18 124/79 90 L 10/10/16 10:25 10/10/16 10:25 10/10/16 10:25 10/10/16 10:25 10/10/16 10:25 General appearance: Present: cachectic, A&O X 3, answers questions appropriately - Respiratory Respiratory exam: Present: CTAB (coarse breath sounds B/L). Absent: accessory muscle use, rales, rhonchi, wheezes - Cardiovascular Cardiovascular exam: Present: RRR, +S1, +S2. Absent: diastolic murmur, gallop, rubs, systolic murmur - GI/Abdominal GI/Abdominal exam: Present: normal bowel sounds, soft (mild perisurgical wound tenderness; dressing dry; ), no peritoneal signs. Absent: distended, tenderness Internal Medicine: Result - Labs CBC & Chem 7: 10/09/16 03:58 10/09/16 03:58 - ABG Interpretation ABG results: ABG ABG pH 7.37 pH Units (7.32-7.45) 10/08/16 04:06 ABG pCO2 44 mmHg (35-45) 10/08/16 04:06 ABG pO2 107 mmHg (85-104) H 10/08/16 04:06 ABG O2 Saturation 98 % (95-98) 10/08/16 04:06 PT/INR, D-dimer PT 11.7 Seconds (9.4-12.1) 10/07/16 16:45 - VTE Documentation of Mechanical Device: Intermittent pneumatic compression device Consult Discharge Plan - Plan Referrals: Jo-Ann Mensah CNP [Primary Care Provider] -
[2016-10-10 12:49] LABS: Hematocrit 30.8 % (35.3-44.9); Mean Corpuscular HGB Conc 33.4 g/dL (31.6-35.5); Mean Corpuscular Hemoglobin 28.2 pg (28.0-33.3); Mean Corpuscular Volume 84.4 fL (83.0-100.0); Mean Platelet Volume 9.6 fL (9.4-12.4); Monocytes # 0.2 K/mcL (0.0-1.3); Platelet Count 181 K/mcL (140-400); Red Blood Count 3.65 M/mcL (3.82-4.97); Red Cell Distribution Width 19.3 % (11.5-14.5)
[2016-10-10 12:55] LABS: Hemoglobin 10.3 g/dL (11.5-15.4)
[2016-10-10] MEDS: 0.9 % Sodium Chloride 1,000 ML IVC SCH (12:58)
[2016-10-10 13:03] LABS: BUN/Creatinine Ratio 11 (6-26); Blood Urea Nitrogen 6 mg/dL (7-20); Calcium 8.5 mg/dL (8.6-10.8); Carbon Dioxide 27 mEq/L (19-29); Chloride 97 mEq/L (98-109); Glucose 218 mg/dL (70-99); Osmolality,Calculated 286 (280-300); Potassium 3.2 mEq/L (3.5-4.5); Sodium 136 mEq/L (136-145); eGFR For African Americans > 60 (> 60); eGFR For Non-African Americans > 60 (> 60)
[2016-10-10 13:09] LABS: Lymphocytes # 0.4 K/mcL (0.6-4.6); Neutrophils # 4.2 K/mcL (1.6-8.9)
[2016-10-10 13:10] LABS: Polychromasia 1+ (Not Present)
[2016-10-10] MEDS: *HR* OxyCODONE/APAP 5/325 TABLET PO PRN (20:53)
[2016-10-11] MEDS: 0.9 % Sodium Chloride 1,000 ML IVC SCH ×2 (04:01→17:08)
[2016-10-11] MEDS: Meropenem 1,000 MG in 0.9 % Sodium Chloride Mini Bag 100 ML IVPB SCH ×2 (04:02→17:07)
[2016-10-11] MEDS: Ipratropium/Albuterol Neb 3 ML IH SCH ×5 (04:18→20:48)
[2016-10-11 04:50] LABS: Basophils % 0.3 %; Eosinophils % 0.3 %; Immature Granulocytes % 3.8 % (0-4); Lymphocytes # 0.3 K/mcL (0.6-4.6); Lymphocytes % 7.6 %; Mean Corpuscular HGB Conc 32.3 g/dL (31.6-35.5); Mean Corpuscular Hemoglobin 27.7 pg (28.0-33.3); Mean Corpuscular Volume 85.9 fL (83.0-100.0); Mean Platelet Volume 10.3 fL (9.4-12.4); Monocytes # 0.2 K/mcL (0.0-1.3); Monocytes % 4.3 %; Platelet Count 183 K/mcL (140-400); Red Blood Count 3.61 M/mcL (3.82-4.97); Red Cell Distribution Width 20.6 % (11.5-14.5); Segmented Neutrophils % 83.7 %
[2016-10-11 05:44] LABS: Neutrophils # 3.4 K/mcL (1.6-8.9)
[2016-10-11 06:42] LABS: Platelet Estimate Normal (Normal)
[2016-10-11 06:43] LABS: Anisocytosis 1+ (Not Present)
[2016-10-11] MEDS: *HR* Heparin 5,000 UNIT/ML VIAL SQ SCH ×2 (06:50→18:26)
[2016-10-11 08:35] LABS: BUN/Creatinine Ratio 17 (6-26); Blood Urea Nitrogen 7 mg/dL (7-20); Calcium 8.2 mg/dL (8.6-10.8); Carbon Dioxide 29 mEq/L (19-29); Chloride 96 mEq/L (98-109); Glucose 111 mg/dL (70-99); Osmolality,Calculated 281 (280-300); Sodium 136 mEq/L (136-145); eGFR For African Americans > 60 (> 60); eGFR For Non-African Americans > 60 (> 60)
[2016-10-11 08:40] LABS: Potassium 2.4 mEq/L (3.5-4.5)
[2016-10-11] MEDS: Budesonide/Formoterol 160/4.5 MDI IH SCH ×2 (08:54→20:48)
[2016-10-11] MEDS ORDERED: Magnesium Sulfate 2 GM in D5% in Water 100 ML IVPB ONE ×2 (09:40→18:20)
--- NOTE | 2016-10-11 09:57 | Internal Med Progress Note ---
Date of Encounter: 10/11/16 Time of Encounter: 09:54 - Assessment and plan (1) Colitis Current Visit: Yes Status: Acute Assessment and plan: Surgery on board and Patient underwent right hemicolectomy with reanastomosis for full-thickness necrosis. Postoperative day 4. Postoperative care per surgery. Noted to be doing well. On full liquid diet, tolerating well. Continue to monitor vital signs and electrolytes closely. Continues to have hypokalemia; will add scheduled potassium tabs along with liquid and IV supplements today; Continue IV antibiotics-meropenem- Day 5. Physical therapy evaluation noted, recommend placement in extended care facility for continued rehabilitation. However patient refuses to be placed. (2) Hypokalemia Current Visit: Yes Status: Acute Assessment and plan: likely due to GI losses due to recent surgery and anastomosis; supplement as above; monitor closely; (3) Pneumonia Current Visit: Yes Status: Ruled-out Qualifiers: Pneumonia type: due to unspecified organism Laterality: left Lung location: unspecified part of lung Qualified Code(s): J18.9 - Pneumonia, unspecified organism (4) Chronic respiratory failure with hypoxia Current Visit: Yes Status: Chronic Assessment and plan: Due to COPD. Continue bronchodilators, supplemental oxygen, inhaled corticosteroids. Hold maintenance steroids until discharge to allow wound healing. (5) Anemia Current Visit: Yes Status: Chronic Assessment and plan: received 2units PRBC transfusion post-op; Hb remains stable since surgery; Qualifiers: Anemia type: unspecified type Qualified Code(s): D64.9 - Anemia, unspecified (6) COPD (chronic obstructive pulmonary disease) Current Visit: Yes Status: Chronic Qualifiers: COPD type: chronic bronchitis Chronic bronchitis type: simple Qualified Code(s): J41.0 - Simple chronic bronchitis (7) DJD (degenerative joint disease) Current Visit: Yes Status: Chronic Qualifiers: Osteoarthritis location: spine Spinal region: lumbar Spinal osteoarthritis complication: with radiculopathy Qualified Code(s): 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 Qualifiers: Diabetes mellitus type: type 2 Diabetes mellitus complication status: with neurologic complications Diabetes mellitus complication detail: with polyneuropathy Diabetes mellitus emt intermediate insulin use: without detention use Qualified Code(s): E11.42 - Type 2 diabetes mellitus with diabetic polyneuropathy (9) GERD (gastroesophageal reflux disease) Current Visit: Yes Status: Chronic Qualifiers: Esophagitis presence: without esophagitis Qualified Code(s): K21.9 - Gastro -esophageal reflux disease without esophagitis (10) HTN (hypertension) Current Visit: Yes Status: Chronic Qualifiers: Hypertension type: essential hypertension Qualified Code(s): I10 - Essential (primary) hypertension (11) Lung cancer Current Visit: Yes Status: Chronic Qualifiers: Laterality: right Lung location: upper lobe of lung Qualified Code(s): C34.11 - Malignant neoplasm of upper lobe, right bronchus or lung - Subjective Interval history: Able to speak better today; no nausea, vomiting; abdominal pain is controlled on current regimen. No bowel movements but reports flatus; tolerates full liquid diet; - Constitutional Vitals: Temp Pulse Resp BP Pulse Ox 98.2 F 102 18 142/93 94 L 10/11/16 06:44 10/11/16 06:44 10/11/16 08:55 10/11/16 06:44 10/11/16 08:55 General appearance: Present: cachectic, A&O X 3, answers questions appropriately - Respiratory Respiratory exam: Present: CTAB. Absent: accessory muscle use, rales, rhonchi, wheezes - Cardiovascular Cardiovascular exam: Present: RRR, +S1, +S2. Absent: diastolic murmur, gallop, rubs, systolic murmur - GI/Abdominal GI/Abdominal exam: Present: hyperactive bowel sounds, soft (mildly distended with tympanic note; surgcal midline dressing dry and intact; nontender;), no peritoneal signs. Absent: distended, tenderness - Extremities Exam Extremities exam: Present: full ROM, warm, radial pulses palpable and symetrical. Absent: calf tenderness, cyanotic, pedal edema Internal Medicine: Result - Labs CBC & Chem 7: 10/11/16 04:37 10/11/16 07:20 Labs: Short CBC 10/10/16 10/11/16 Range/Units 12:40 04:37 WBC 4.8 D 4.0 L (4.3-11.1) K/mcL Hgb 10.3 L D 10.0 L (11.5-15.4) g/dL Hct 30.8 L 31.0 L (35.3-44.9) % Plt Count 181 183 (140-400) K/mcL Neutrophils # 4.2 3.4 (1.6-8.9) K/mcL BMP 10/10/16 10/11/16 12:40 07:20 Sodium 136 136 Potassium 3.2 L 2.4 L* Chloride 97 L 96 L Carbon Dioxide 27 29 BUN 6 L 7 Creatinine 0.54 L 0.42 L Glucose 218 H 111 H Calcium 8.5 L 8.2 L - ABG Interpretation ABG results: ABG ABG pH 7.37 pH Units (7.32-7.45) 10/08/16 04:06 ABG pCO2 44 mmHg (35-45) 10/08/16 04:06 ABG pO2 107 mmHg (85-104) H 10/08/16 04:06 ABG O2 Saturation 98 % (95-98) 10/08/16 04:06 PT/INR, D-dimer PT 11.7 Seconds (9.4-12.1) 10/07/16 16:45 - VTE Documentation of Mechanical Device: Intermittent pneumatic compression device Consult Discharge Plan - Plan Referrals: Jo-Ann Mensah, [employer]END[employer] [Primary Care Provider] -
[2016-10-11 10:00] LABS: Magnesium 1.1 mg/dL (1.6-2.6)
[2016-10-11] MEDS: Potassium Chloride Elixir 20 MEQ/15 ML UDC PO SCH ×3 (10:06→17:06)
--- NOTE | 2016-10-11 11:10 | General Surgery Progress Note ---
Date of Encounter: 10/11/16 Time of Encounter: 11:08 - Assessment and Plan (1) Hypokalemia Current Visit: Yes Status: Acute Potassium level of 2.4. Placement to be covered by primary service. Discussed with the patient that maintaining her potassium level is important for bowel function. (2) Necrosis of colon Current Visit: Yes Status: Acute Patient status post colectomy. Incision is clean dry and intact. Patient has been up and out of bed sitting in chair. Will remove Jackson catheter and advance to soft diet. Subjective Patient reports: no new complaints (No nausea or vomiting. Positive flatus-no BMs.) Objective Vital Signs - Last 8 Hours Temp Pulse Resp BP Pulse Ox 10/11/16 10:35 97.1 F L 102 16 128/80 95 10/11/16 08:55 18 94 L 10/11/16 06:44 98.2 F 102 18 142/93 92 L 10/11/16 04:44 97.5 F L 97 20 130/77 92 L Intake and Output 10/10/16 10/11/16 10/11/16 23:59 07:59 15:59 Intake Total 580 / 580 1100 / 1100 480 / 480 Output Total 1475 / 1475 1800 / 1800 750 / 750 Balance -895 / -895 -700 / -700 -270 / -270 Intake: IV Fluids 100 / 100 1100 / 1100 0.9 % Sodium Chloride 1, 1000 / 1000 000 ML @ 75 mls/hr IVC . [id number] [facility] Rx#: [id number] Merrem 1,000 MG In 0.9 % 100 / 100 100 / 100 Sodium Chloride (Mini-Bag +) 100 ML @ 200 mls/hr IVPB Q12H [facility] Rx#: [id number] Oral 480 / 480 480 / 480 Output: Catheter 1475 / 1475 1800 / 1800 750 / 750 Other: Meal Dinner Breakfast Percent of Meal Consumed 75% Weight 43.953 kg Patient Weight 10/11/16 23:59 Weight 43.953 kg - General physical appearance well nourished, no distress - Abdomen Abdomen: Present: bowel sounds present, soft, tender (mild incisional tenderness ) - Labs 10/11/16 04:37 10/11/16 07:20 Diabetes panel 10/10/16 10/11/16 Range/Units 12:40 07:20 Sodium 136 136 (136-145) mEq/L Potassium 3.2 L 2.4 L* (3.5-4.5) mEq/L Chloride 97 L 96 L (98-109) mEq/L Carbon Dioxide 27 29 (19-29) mEq/L BUN 6 L 7 (7-20) mg/dL Creatinine 0.54 L 0.42 L (0.57-1.11) mg/dL Glucose 218 H 111 H (70-99) mg/dL Calcium 8.5 L 8.2 L (8.6-10.8) mg/dL Calcium panel 10/10/16 10/11/16 Range/Units 12:40 07:20 Calcium 8.5 L 8.2 L (8.6-10.8) mg/dL Pituitary panel 10/10/16 10/11/16 Range/Units 12:40 07:20 Sodium 136 136 (136-145) mEq/L Potassium 3.2 L 2.4 L* (3.5-4.5) mEq/L Chloride 97 L 96 L (98-109) mEq/L Carbon Dioxide 27 29 (19-29) mEq/L BUN 6 L 7 (7-20) mg/dL Creatinine 0.54 L 0.42 L (0.57-1.11) mg/dL Glucose 218 H 111 H (70-99) mg/dL Calcium 8.5 L 8.2 L (8.6-10.8) mg/dL Adrenal panel 10/10/16 10/11/16 Range/Units 12:40 07:20 Sodium 136 136 (136-145) mEq/L Potassium 3.2 L 2.4 L* (3.5-4.5) mEq/L Chloride 97 L 96 L (98-109) mEq/L Carbon Dioxide 27 29 (19-29) mEq/L BUN 6 L 7 (7-20) mg/dL Creatinine 0.54 L 0.42 L (0.57-1.11) mg/dL Glucose 218 H 111 H (70-99) mg/dL Calcium 8.5 L 8.2 L (8.6-10.8) mg/dL - VTE Documentation of Mechanical Device: Intermittent pneumatic compression device Consult Discharge Plan - Plan Referrals: Jo-Ann Mensah, DEVIN [Primary Care Provider] -
[2016-10-11] MEDS: *HR* OxyCODONE/APAP 5/325 TABLET PO PRN ×2 (11:46→18:30)
[2016-10-11] MEDS: *HR* HYDROmorphone (PF) 1 MG/ML SYRINGE IVP PRN (20:08)
[2016-10-11] MEDS: Magnesium Oxide 400 MG TABLET PO SCH (20:09)
[2016-10-12] MEDS: Ipratropium/Albuterol Neb 3 ML IH SCH ×4 (00:29→11:53)
[2016-10-12] MEDS: Meropenem 1,000 MG in 0.9 % Sodium Chloride Mini Bag 100 ML IVPB SCH (03:32)
[2016-10-12] MEDS: *HR* HYDROmorphone (PF) 1 MG/ML SYRINGE IVP PRN ×2 (03:32→14:58)
[2016-10-12 06:14] LABS: BUN/Creatinine Ratio 14 (6-26); Blood Urea Nitrogen 6 mg/dL (7-20); Carbon Dioxide 24 mEq/L (19-29); Chloride 102 mEq/L (98-109); Glucose 118 mg/dL (70-99); Magnesium 1.9 mg/dL (1.6-2.6); Osmolality,Calculated 275 (280-300); Sodium 133 mEq/L (136-145); eGFR For African Americans > 60 (> 60); eGFR For Non-African Americans > 60 (> 60)
[2016-10-12 06:18] LABS: Potassium 4.3 mEq/L (3.5-4.5)
[2016-10-12] MEDS: 0.9 % Sodium Chloride 1,000 ML IVC SCH (06:20)
[2016-10-12] MEDS: *HR* OxyCODONE/APAP 5/325 TABLET PO PRN ×2 (06:20→11:49)
[2016-10-12] MEDS: *HR* Heparin 5,000 UNIT/ML VIAL SQ SCH ×2 (06:21→18:08)
--- NOTE | 2016-10-12 07:39 | General Surgery Progress Note ---
<Preston Churchill - Last Filed: 10/12/16 14:47> Date of Encounter: 10/12/16 Time of Encounter: 06:50 - Assessment and Plan (1) RLQ abdominal pain Current Visit: Yes Status: Acute POD #5 right hemicolectomy with reanastomosis. The mucosa of the colon appeared to be ischemic and there were visible areas of pneumatosis of the resected specimen. Colitis and mild pneumotosis was seen on the CT (10/06) limited to the cecum. The patient is currently on Meropenem. Continue pain control. Advance diet to regular diet. Heparin drip discontinued. Heparin 5000 units SQ Q12hr for DVT prophylaxis. From a surgery standpoint the patient is progressing well and having bowel movements. She is cleared to be discharged as long as the medicine team is agreeable from their standpoint. (2) HCAP (healthcare-associated pneumonia) Current Visit: No Status: Acute The patient is on Meropenem. Management per the medicine team. (3) Anemia Current Visit: Yes Status: Chronic 7.9 > 8.4 > 10.3 > 10.0 yesterday Will follow closely. Qualifiers: Anemia type: unspecified type Qualified Code(s): D64.9 - Anemia, unspecified (4) COPD (chronic obstructive pulmonary disease) Current Visit: Yes Status: Chronic Management per medicine team. Qualifiers: COPD type: chronic bronchitis Chronic bronchitis type: simple Qualified Code(s): J41.0 - Simple chronic bronchitis (5) Diabetes mellitus Current Visit: Yes Status: Chronic Management per medicine team. 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 Objective Vital Signs - Last 8 Hours Temp Pulse Resp BP Pulse Ox 10/12/16 06:52 97.5 F L 98 18 116/83 96 10/12/16 04:55 16 92 L 10/12/16 03:54 97.6 F 96 16 136/78 98 10/12/16 00:33 97.6 F 101 15 144/92 98 10/12/16 00:29 17 97 Intake and Output 10/11/16 10/11/16 10/12/16 15:59 23:59 07:59 Intake Total 820 / 820 1444 / 1444 1700 / 1700 Output Total 950 / 950 1500 / 1500 400 / 400 Balance -130 / -130 -56 / -56 1300 / 1300 Intake: IV Fluids 100 / 100 1204 / 1204 1100 / 1100 0.9 % Sodium Chloride 1, 1000 / 1000 1000 / 1000 000 ML @ 75 mls/hr IVC . [id number] [facility] Rx#: [id number] Magnesium Sulfate 2 GM In 104 / 104 Dextrose 5% 100 ML @ 100 mls/hr IVPB ONCE ONE Rx# :[id number] Merrem 1,000 MG In 0.9 % 100 / 100 100 / 100 Sodium Chloride (Mini-Bag +) 100 ML @ 200 mls/hr IVPB Q12H [facility] Rx#: [id number] Potassium Chloride 20 mEq 100 / 100 /100 mL 20 meq In 100 ml @ 100 mls/hr IVPB Q1H PRN Rx#:[id number] Oral 720 / 720 240 / 240 600 / 600 Output: Urine 200 / 200 1500 / 1500 400 / 400 Catheter 750 / 750 Other: Meal Lunch Dinner Percent of Meal Consumed 100% 25% Stool Size Large Stool Consistency loose Stool Color Brown # Voids 1 Weight 48.648 kg Patient Weight 10/12/16 23:59 Weight 48.648 kg - General physical appearance cachectic - Eyes normal ocular movement - ENT normal mucosa - Neck Neck exam: trachea midline - Respiratory normal respiratory effort rales: bilateral - Cardiovascular Cardiovascular exam: Present: RRR - Abdomen Abdomen: Present: bowel sounds present, soft, non tender - Incision Incision: Present: clean and dry, intact - Integumentary no rash - Neurologic CN 2-12 grossly intact - Musculoskeletal normal posture - Psychiatric oriented to time, oriented to person, oriented to place, speech is normal, memory intact - Labs 10/11/16 04:37 10/12/16 05:52 Diabetes panel 10/11/16 10/12/16 Range/Units 07:20 05:52 Sodium 136 133 L (136-145) mEq/L Potassium 2.4 L* 4.3 D (3.5-4.5) mEq/L Chloride 96 L 102 (98-109) mEq/L Carbon Dioxide 29 24 (19-29) mEq/L BUN 7 6 L (7-20) mg/dL Creatinine 0.42 L 0.43 L (0.57-1.11) mg/dL Glucose 111 H 118 H (70-99) mg/dL Calcium 8.2 L 8.0 L (8.6-10.8) mg/dL Calcium panel 10/11/16 10/12/16 Range/Units 07:20 05:52 Calcium 8.2 L 8.0 L (8.6-10.8) mg/dL Pituitary panel 10/11/16 10/12/16 Range/Units 07:20 05:52 Sodium 136 133 L (136-145) mEq/L Potassium 2.4 L* 4.3 D (3.5-4.5) mEq/L Chloride 96 L 102 (98-109) mEq/L Carbon Dioxide 29 24 (19-29) mEq/L BUN 7 6 L (7-20) mg/dL Creatinine 0.42 L 0.43 L (0.57-1.11) mg/dL Glucose 111 H 118 H (70-99) mg/dL Calcium 8.2 L 8.0 L (8.6-10.8) mg/dL Adrenal panel 10/11/16 10/12/16 Range/Units 07:20 05:52 Sodium 136 133 L (136-145) mEq/L Potassium 2.4 L* 4.3 D (3.5-4.5) mEq/L Chloride 96 L 102 (98-109) mEq/L Carbon Dioxide 29 24 (19-29) mEq/L BUN 7 6 L (7-20) mg/dL Creatinine 0.42 L 0.43 L (0.57-1.11) mg/dL Glucose 111 H 118 H (70-99) mg/dL Calcium 8.2 L 8.0 L (8.6-10.8) mg/dL - VTE Documentation of Mechanical Device: Intermittent pneumatic compression device Consult Discharge Plan - Plan Referrals: Jo-Ann Mensah CNP [Primary Care Provider] - Dean Williamson MD [Partnered Physician] - 10/27/16 12:35 pm Prescriptions: OxyCODONE/APAP 5/325 [Percocet 5/325 MG] 1 each PO Q4HR PRN #30 tablet PRN Reason: Pain Docusate [Colace] 100 mg PO BID #30 capsule - Attending Attestation I examined this patient and my medical decision-making was reviewed with the CORRECTIONAL PROBATION OFFICER/PA/Advanced Practice Nurse/Resident Physician. I agree with the documented findings, disposition and treatment plan as described except to the extent set forth below. <Dean Williamson - Last Filed: 10/12/16 15:29> - Assessment and Plan (1) RLQ abdominal pain Current Visit: Yes Status: Acute Objective Vital Signs - Last 8 Hours Temp Pulse Resp BP Pulse Ox 10/12/16 14:00 97.5 F L 110 16 144/78 94 L 10/12/16 11:54 16 97 10/12/16 10:43 97.7 F 101 16 144/88 97 10/12/16 08:10 96 10/12/16 07:47 16 116/83 96 Intake and Output 10/11/16 10/12/16 10/12/16 23:59 07:59 15:59 Intake Total 1444 / 1444 1700 / 1700 684 / 684 Output Total 1500 / 1500 400 / 400 700 / 700 Balance -56 / -56 1300 / 1300 -16 / -16 Intake: IV Fluids 1204 / 1204 1100 / 1100 444 / 444 0.9 % Sodium Chloride 1, 1000 / 1000 1000 / 1000 444 / 444 000 ML @ 75 mls/hr IVC . [id number] [facility] Rx#: [id number] Magnesium Sulfate 2 GM In 104 / 104 Dextrose 5% 100 ML @ 100 mls/hr IVPB ONCE ONE Rx# :[id number] Merrem 1,000 MG In 0.9 % 100 / 100 100 / 100 Sodium Chloride (Mini-Bag +) 100 ML @ 200 mls/hr IVPB Q12H [facility] Rx#: [id number] Oral 240 / 240 600 / 600 240 / 240 Output: Urine 1500 / 1500 400 / 400 700 / 700 Other: Meal Dinner Breakfast Percent of Meal Consumed 25% 25% # Voids 1 Weight 48.648 kg Patient Weight 10/12/16 23:59 Weight 48.648 kg - Labs 10/11/16 04:37 10/12/16 05:52 Diabetes panel 10/12/16 Range/Units 05:52 Sodium 133 L (136-145) mEq/L Potassium 4.3 D (3.5-4.5) mEq/L Chloride 102 (98-109) mEq/L Carbon Dioxide 24 (19-29) mEq/L BUN 6 L (7-20) mg/dL Creatinine 0.43 L (0.57-1.11) mg/dL Glucose 118 H (70-99) mg/dL Calcium 8.0 L (8.6-10.8) mg/dL Calcium panel 10/12/16 Range/Units 05:52 Calcium 8.0 L (8.6-10.8) mg/dL Pituitary panel 10/12/16 Range/Units 05:52 Sodium 133 L (136-145) mEq/L Potassium 4.3 D (3.5-4.5) mEq/L Chloride 102 (98-109) mEq/L Carbon Dioxide 24 (19-29) mEq/L BUN 6 L (7-20) mg/dL Creatinine 0.43 L (0.57-1.11) mg/dL Glucose 118 H (70-99) mg/dL Calcium 8.0 L (8.6-10.8) mg/dL Adrenal panel 10/12/16 Range/Units 05:52 Sodium 133 L (136-145) mEq/L Potassium 4.3 D (3.5-4.5) mEq/L Chloride 102 (98-109) mEq/L Carbon Dioxide 24 (19-29) mEq/L BUN 6 L (7-20) mg/dL Creatinine 0.43 L (0.57-1.11) mg/dL Glucose 118 H (70-99) mg/dL Calcium 8.0 L (8.6-10.8) mg/dL - Attending Attestation The patient was seen and evaluated today on rounds with the resident. She has no complaints of abdominal pain. Her incision is in great condition. She is tolerating soft diet. I recommend discharge to home. I will see her back in follow-up in 1-2 weeks. I am very pleased with her overall clinical course. Dean Williamson MD FACS
[2016-10-12] MEDS: Budesonide/Formoterol 160/4.5 MDI IH SCH (07:49)
[2016-10-12] MEDS: Magnesium Oxide 400 MG TABLET PO SCH (09:51)
[2016-10-12 14:51] VITALS: BP 144/78
--- NOTE | 2016-10-12 15:49 | Discharge Summary ---
Date of Encounter: 10/12/16 Time of Encounter: 10:00 - Discharge Diagnosis (1) Colitis Priority: Primary Status: Acute (2) Hypokalemia Priority: Primary Status: Acute (3) Pneumonia Priority: Primary Status: Ruled-out Qualifiers: Pneumonia type: due to unspecified organism Laterality: left Lung location: unspecified part of lung Qualified Code(s): J18.9 - Pneumonia, unspecified organism (4) Chronic respiratory failure with hypoxia Priority: Primary Status: Chronic (5) Anemia Priority: Primary Status: Chronic Qualifiers: Anemia type: unspecified type Qualified Code(s): D64.9 - Anemia, unspecified (6) COPD (chronic obstructive pulmonary disease) Priority: Secondary Status: Chronic Qualifiers: COPD type: chronic bronchitis Chronic bronchitis type: simple Qualified Code(s): J41.0 - Simple chronic bronchitis (7) DJD (degenerative joint disease) Priority: Secondary Status: Chronic Qualifiers: Osteoarthritis location: spine Spinal region: lumbar Spinal osteoarthritis complication: with radiculopathy Qualified Code(s): 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, lumbar region (8) Diabetes mellitus Priority: Secondary Status: Chronic Qualifiers: Diabetes mellitus type: type 2 Diabetes mellitus complication status: with neurologic complications Diabetes mellitus complication detail: with polyneuropathy Diabetes mellitus correction insulin use: without correction use Qualified Code(s): E11.42 - Type 2 diabetes mellitus with diabetic polyneuropathy (9) GERD (gastroesophageal reflux disease) Priority: Secondary Status: Chronic Qualifiers: Esophagitis presence: without esophagitis Qualified Code(s): K21.9 - Gastro -esophageal reflux disease without esophagitis (10) HTN (hypertension) Priority: Secondary Status: Chronic Qualifiers: Hypertension type: essential hypertension Qualified Code(s): I10 - Essential (primary) hypertension (11) Lung cancer Priority: Secondary Status: Chronic Qualifiers: Laterality: right Lung location: upper lobe of lung Qualified Code(s): C34.11 - Malignant neoplasm of upper lobe, right bronchus or lung - Discharge Medications Prescriptions: OxyCODONE/APAP 5/325 [Percocet 5/325 MG] 1 each PO Q4HR PRN #30 tablet PRN Reason: Pain Docusate [Colace] 100 mg PO BID #30 capsule Magnesium Oxide [Magnesium] 400 mg PO BID #30 capsule Potassium Chloride [Klor-Con Sprinkle] 10 meq PO BID #30 capsule.er Home Medications: Gabapentin [Neurontin] 600 mg PO Q6H 07/16/16 [History] Ropinirole HCl 0.5 mg PO HS 07/16/16 [History] Tramadol HCl 100 mg PO Q6H PRN 07/16/16 [History] Lisinopril 40 mg PO DAILY 08/07/16 [History] Ondansetron HCl [Zofran] 4 mg PO TID PRN #90 tablet 08/19/16 [Rx] Prochlorperazine Maleate [Compazine] 10 mg PO Q8HR PRN #90 tablet 08/19/16 [Rx] Amlodipine [Norvasc] 5 mg PO DAILY 08/31/16 [History] Sennosides/Docusate Sodium [Senna-S Tablet] 1 each PO HS PRN 08/31/16 [History] Omeprazole [PriLOSEC] 20 mg PO DAILY@0630 #30 capsule. 09/04/16 [Rx] Magic Mouthwash [Magic Mouthwash BLM] 10 ml PO QID PRN #240 ml 09/08/16 [Rx] Albuterol Sulfate [Albuterol Inhaler] 2 puff IH Q4H PRN #1 inhaler 09/28/16 [Rx] Budesonide/Formoterol 160/4.5 [Symbicort 160/4.5] 2 puff IH BID #1 inhaler 09/28 [Rx] Budesonide/Formoterol 160/4.5 [Symbicort 160/4.5] 2 puff IH BIDR #1 hfa.aer.ad 09/28/16 [Rx] Sodium Polystyrene Sulfonate [Kayexalate] 15 gm PO BID #4 mls 09/30/16 [Rx] Dexamethasone [Decadron] 4 mg PO BID #60 tab 10/01/16 [Rx] Docusate [Colace] 100 mg PO BID #30 capsule 10/12/16 [Rx] Magnesium Oxide [Magnesium] 400 mg PO BID #30 capsule 10/12/16 [Rx] OxyCODONE/APAP 5/325 [Percocet 5/325 MG] 1 each PO Q4HR PRN #30 tablet 10/12/16 [Rx] Potassium Chloride [Klor-Con Sprinkle] 10 meq PO BID #30 capsule.er 10/12/16 [Rx ] Allergies/Adverse Reactions: Allergies acetaminophen [From [place]] Allergy (Verified 08/31/16 12:00) itching,hives codeine Allergy (Verified 08/31/16 12:00) itching,hives fluticasone [From Advair Diskus] Allergy (Verified 08/31/16 12:00) Difficulty Breathing hydrocodone [From [place]] Allergy (Verified 08/31/16 12:00) itching,hives salmeterol [From Advair Diskus] Allergy (Verified 08/31/16 12:00) Difficulty Breathing Date of admission: 10/06/16 14:05 Primary care physician: Jo-Ann Mensah CNP Consults: 10/06/16 15:29 Consult to Nutrition [CONS] Routine Comment: Consulting Provider: NUTRITION Reason for Dietary Consult: MST Score Consult to Residential Aide [CONS] Routine Reason for SW Consult: Possible ECF placement 10/08/16 11:53 Consult to Invasive Line Access Team [CONS] Routine Reason for Consult: poor access Line Type: EPIV Discharging clinician: Magy Arzate Anticipated date of discharge: 10/12/16 - Patient Status Disposition: Home Health Service Condition: Fair Functional capacity at discharge: uses cane/walker Overall status at discharge: patient is progressing back to baseline - Discharge Instructions Follow Up With: Dean Williamson MD [Partnered Physician] - 10/27/16 12:35 pm Jo-Ann Mensah CNP [Primary Care Provider] - - Diet and Activity Activity: as per physical therapy, wear oxygen at all times Diet: advance to your usual diet, low fat, low cholesterol, low salt diet Hospital course: Ms. Guzman is a 80 year old female with history of lung cancer, on chemoradiation therapy, who was initially admitted with acute right lower quadrant abdominal pain. CT abdomen/pelvis done in the emergency room showed mild cecal thickening with inflammatory mesenteric changes and possible pneumatosis. She was kept nothing by mouth with IV hydration and pain control and started on IV meropenem to cover intra-abdominal pathogens and possible pneumonia. CT chest showed improving pneumonia and patient has been recently admitted to the hospital and treated for healthcare associated pneumonia. Surgery was consulted and patient underwent right hemicolectomy with reanastomosis on October 07 and was subsequently transferred to ICU as she initially failed CPAP trial and could not be extubated post surgery. Patient was continued on bronchodilators and supportive care and was gradually able to be weaned off the ventilator and was noted to be saturating well on nasal cannula. She was transferred to medical floor in a stable condition and did well and had an uneventful postoperative recovery. Her abdominal wound is noted to be healing well at this time with intact mauricio. She is able to tolerate oral diet and began to have bowel movements. Physical therapy evaluation was done and she is recommended placement in extended care facility. This has been discussed with the patient multiple times and she continues to refuse being placed and would like to go home to family care. Patient is being discharged with home health services, referral has been completed. Patient is noted to have hypokalemia and hypomagnesemia, which have been aggressively supplemented with IV and O2 supplements in the hospital and she is also being discharged on oral potassium and magnesium supplements at this time. - Time Spent with Patient Total time spent providing and/or coordinating discharge services: Greater than 30 minutes (45 min) - Constitutional Vitals: Temp Pulse Resp BP Pulse Ox 97.5 F L 110 16 144/78 94 L 10/12/16 14:00 10/12/16 14:00 10/12/16 14:00 10/12/16 14:10/12/16 14:00 General appearance: Present: cachectic, A&O X 3, answers questions appropriately - Respiratory Respiratory exam: Present: CTAB. Absent: accessory muscle use, rales, rhonchi, wheezes - Cardiovascular Cardiovascular exam: Present: RRR, +S1, +S2. Absent: diastolic murmur, gallop, rubs, systolic murmur - GI/Abdominal GI/Abdominal exam: Present: normal bowel sounds, soft (nontender, midline abdominal surgical wound healing well, no signs of inflammation, mauricio intact ), no peritoneal signs. Absent: distended, tenderness - VTE Documentation of Mechanical Device: Intermittent pneumatic compression device
--- NOTE | 2016-10-12 15:53 | Physician Discharge Referral ---
Home Health/Hosp Referral Info Transfer to: Home Health Attending Provider: Magy Arzate Provider in Charge Post Discharge: PCP - Diagnosis (1) Colitis Priority: Primary Status: Acute (2) Hypokalemia Priority: Primary Status: Acute (3) Pneumonia Priority: Primary Status: Ruled-out (4) Chronic respiratory failure with hypoxia Priority: Secondary Status: Chronic (5) Anemia Priority: Secondary Status: Chronic (6) COPD (chronic obstructive pulmonary disease) Priority: Secondary Status: Chronic (7) DJD (degenerative joint disease) Priority: Secondary Status: Chronic (8) Diabetes mellitus Priority: Secondary Status: Chronic (9) GERD (gastroesophageal reflux disease) Priority: Secondary Status: Chronic (10) HTN (hypertension) Priority: Secondary Status: Chronic (11) Lung cancer Priority: Secondary Status: Chronic - Respiratory Orders Oxygen / L per min (3-4L/min) Smoking Cessation: Smoking cessation has been advised. For more information, call the [employer] Quit Line at 1-190-NPKR-NOW. - Diet/Nutrition Diet/Nutrition Orders: Cardiac - Activity Activity Orders: Ambulate - Services Needed Following services are medically necessary services: Nursing, Physical Therapy, Occupational Therapy - Transfer Medications Prescriptions: OxyCODONE/APAP 5/325 [Percocet 5/325 MG] 1 each PO Q4HR PRN #30 tablet PRN Reason: Pain Docusate [Colace] 100 mg PO BID #30 capsule Magnesium Oxide [Magnesium] 400 mg PO BID #30 capsule Potassium Chloride [Klor-Con Sprinkle] 10 meq PO BID #30 capsule.er Home Medications: Gabapentin [Neurontin] 600 mg PO Q6H 07/16/16 [History] Ropinirole HCl 0.5 mg PO HS 07/16/16 [History] Tramadol HCl 100 mg PO Q6H PRN 07/16/16 [History] Lisinopril 40 mg PO DAILY 08/07/16 [History] Ondansetron HCl [Zofran] 4 mg PO TID PRN #90 tablet 08/19/16 [Rx] Prochlorperazine Maleate [Compazine] 10 mg PO Q8HR PRN #90 tablet 08/19/16 [Rx] Amlodipine [Norvasc] 5 mg PO DAILY 08/31/16 [History] Sennosides/Docusate Sodium [Senna-S Tablet] 1 each PO HS PRN 01/09/17 [History] Omeprazole [PriLOSEC] 20 mg PO DAILY@0630 #30 capsule. 09/04/16 [Rx] Magic Mouthwash [Magic Mouthwash BLM] 10 ml PO QID PRN #240 ml 09/08/16 [Rx] Albuterol Sulfate [Albuterol Inhaler] 2 puff IH Q4H PRN #1 inhaler 09/28/16 [Rx] Budesonide/Formoterol 160/4.5 [Symbicort 160/4.5] 2 puff IH BID #1 inhaler 09/28 [Rx] Budesonide/Formoterol 160/4.5 [Symbicort 160/4.5] 2 puff IH BIDR #1 hfa.aer.ad 09/28/16 [Rx] Sodium Polystyrene Sulfonate [Kayexalate] 15 gm PO BID #4 mls 09/30/16 [Rx] Dexamethasone [Decadron] 4 mg PO BID #60 tab 10/01/16 [Rx] Docusate [Colace] 100 mg PO BID #30 capsule 10/12/16 [Rx] Magnesium Oxide [Magnesium] 400 mg PO BID #30 capsule 10/12/16 [Rx] OxyCODONE/APAP 5/325 [Percocet 5/325 MG] 1 each PO Q4HR PRN #30 tablet 10/12/16 [Rx] Potassium Chloride [Klor-Con Sprinkle] 10 meq PO BID #30 capsule.er 10/12/16 [Rx ] Allergies/Adverse Reactions: Allergies acetaminophen [From [place]] Allergy (Verified 08/31/16 12:00) itching,hives codeine Allergy (Verified 08/31/16 12:00) itching,hives fluticasone [From Advair Diskus] Allergy (Verified 08/31/16 12:00) Difficulty Breathing hydrocodone [From [place]] Allergy (Verified 08/31/16 12:00) itching,hives salmeterol [From [facility]air Diskus] Allergy (Verified 08/31/16 12:00) Difficulty Breathing Certification: Further, I certify that my clinical findings support that this patient is homebound (i.e. absences from home require considerable and taxing effort and are for medical reasons or worship services or infrequently or short duration when for other reasons) because: Homebound Reason: Patient requires assistance of a person or device to safely leave home, Leaving home requires considerable and taxing effort due to condition Attestation: My signature below is to certify that this patient is under my care and that I, or nurse practitioner, or a physician's dietary assistant working with me, has a face-to -face encounter with this patient.
[2016-10-12] MEDS ORDERED: Meropenem 1,000 MG in 0.9 % Sodium Chloride Mini Bag 100 ML IVPB SCH (16:00)
== END 2016-10-12 18:38 | disposition home health service (06) | DRG 330 ==
LOC: 3ANU 06:33 → EMEROO 06:33 → 3ANU 14:28 → ICNU 10-07 13:17 → 3ANU 10-09 11:06
PROVIDERS: ADMIT Hospitalist; ATTEND Internal Medicine